=== PATIENT | male | born 1990 | race African-American/Black ===

== ENCOUNTER 2024-11-16 08:27 | Outpatient (REF) | payer OTHER, MEDICAID, SELFPAY ==
--- NOTE | ~2024-11-16 | XR_ITS ---
EXAMINATION: XR KNEE 3 VIEWS LEFT HISTORY: M25.562 - Pain in left knee COMPARISON: There are no prior studies available for comparison. FINDINGS: Standing AP views of both knees, and lateral and sunrise patellar views of the left are submitted. Osseous mineralization is normal. 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 No similar lucency is seen through the right patella. There is moderate osteoarthritis of the lateral compartment with joint space narrowing and osteophyte formation. Milder changes are noted involving the medial compartment. There are prominent vascular calcifications. There is no joint effusion. XR/XR knee LT 3V IMPRESSION: 1. 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 2. Prominent vascular calcifications, greater than expected for a patient of this age, likely secondary to diabetes. Electronically signed by: Jai Bergman MD 11/19/2024 01:15 PM EDT
--- OUTSIDE RECORDS SUMMARY | 2024-11-16 08:50 | XMS_ITS | Clinical Summary ---
Author Organization 175 [facility] Address [address] [place] [address] Phone Care Team Providers Care Plant Controls Specialist Name Role Phone Jessica Meraz Primary Care Provider [phone] Allergies No known active allergies Medications polyethylene glycol (MIRALAX) 17 gram packet Take 17 g by mouth daily. Active psyllium (METAMUCIL) 0.52 gram capsule Route: Take 1 Capsule by mouth daily. - Oral Active losartan (COZAAR) 50 mg tablet Take 1 Tablet by mouth daily. Active omeprazole (PriLOSEC) [address] capsule omeprazole (PRILOSEC) 40 MG capsule Sig - Route: Take 1 Capsule by mouth daily. - Oral Active insulin glargine (LANTUS SoloStar) 100 unit/mL (3 mL) injection pen Route: Inject 40 Units into the skin at bedtime. - Subcutaneous Active hydrALAZINE (APRESOLINE) 25 mg tablet Route: Take 1 tablet by mouth 2 times daily. - Oral 1 Active furosemide (LASIX) 80 mg tablet Route: Take 80 mg by mouth 2 times daily. - Oral Active ergocalciferol (VITAMIN D-2) 1,250 mcg (50,000 unit) capsule Take 50,000 Units by mouth once a week. Active amLODIPine (NORVASC) 10 mg tablet Take 10 mg by mouth daily. Active CARVEDILOL ORAL Take by mouth. Active insulin aspart (NovoLOG U-100 Insulin aspart) 100 unit/mL injection Inject into the skin 3 times daily (before meals). Active metoclopramide (REGLAN) 5 mg tablet Take 1 Tablet by mouth 4 times daily. Active omeprazole (PriLOSEC) [address] capsule Take 1 Capsule by mouth daily. Active cyclobenzaprine (FLEXERIL) 10 mg tabletIndicatio ns:Cervical strain, acute, initial encounter,Strai n of lumbar region, initial encounter Take 1 tablet (10 mg total) by mouth 3 (three) times a day if needed for muscle spasms for up to 7 days. 15 tablet Active Active Problems Problem Noted Date Diagnosed Date Hematuria 12/11/2020 Microscopic hematuria 12/11/2020 CKD (chronic kidney disease) 12/11/2020 Overview (07/04/2024): Never saw capital equipment specialist, no records from PCP OF 12/11/20 Encounters Date Type Department Care Team Description 09/05/2024 11:38 AM EST - 09/05/2024 1:37 PM [facility] Emergency [address] [place] [address] Jordan Pantoja MD Cervical strain, acute, initial encounter (Primary Dx); Strain of lumbar region, initial encounter Discharge Disposition: Home or Self Care 09/03/2024 6:46 AM EST - 09/03/2024 11:40 AM [facility] Emergency [address] [place] [address] Jose Gregory MD Chronic kidney disease, unspecified CKD stage (Primary Dx); Influenza A Discharge Disposition: Home or Self Care 08/20/2024 3:30 PM EST Consult Orthopedic Surgery - [place] [address] [place] [phone] Elpidio Villegas DPM Hallux rigidus of left foot (Primary Dx); Acquired hallux valgus of left foot; Hallux rigidus of right foot; Acquired hallux valgus of right foot; Acquired hammer toe of right foot; Hammer toe of left foot; Metatarsalgia of right foot; Metatarsalgia of left foot; Contracture of joint of left foot; Contracture of joint of right foot; Dermatophytosis of nail; Pain in toe of right foot; Pain in toe of left foot; Corns and callosities; Type 1 diabetes mellitus with mononeuropathy ([facility]/HCC); Ulcer of toe of right foot, limited to breakdown of skin ([facility]/HCC) from Last 3 Months Medical History Medical History Date Comments Urinary tract infection DX:Urina ry tract infection Microscopic hematuria DX:Microsc opic hematuria Diabetes mellitus ([facility]/HCC) DX:D iabetes mellitus ([facility]); COMMENT: Type 1, followed by regulated program manager at [facility] CKD (chronic kidney disease) DX: CKD (chronic kidney disease); COMMENT: Never saw capital equipment specialist, no records from PCP OF 12/11/20 Social History Tobacco Use Types Packs/Day Years Used Date Smoking Tobacco: Never Tobacco Cessation:Counseling Given: Not Answered Alcohol Use Standard Drinks/Week Comments Never 0 (1 standard drink = 0.6 oz pur e alcohol) Sex and Gender Information Value Date Recorded Sex Assigned at Male 09/03/2024 7:36 AM EST Legal Sex Male 10:16 AM EST Gender Identity Male 09/03/2024 7:36 AM EST Sexual Orientation Straight 09/05/2024 11 :59 AM EST Obstetrics History Last Filed Vital Signs Vital Sign Reading Time Taken Comments Blood Pressure 144/107 09/05/2024 10:59 AM EST Pulse 84 09/05/2024 10:59 AM EST Temperature 36.8 ??C (98.2 ??F) 09/05/2024 10:[address] Respiratory Rate 19 09/05/2024 10:59 AM EST Oxygen Saturation 100% 09/05/2024 10:59 AM EST Inhaled Oxygen Concentration - - Weight 88.5 kg (195 lb) 09/05/2024 10:59 AM EST Height 185.4 cm (6' 1 ) 09/05/2024 10:59 AM EST Body Mass Index 25.73 09/05/2024 10:59 AM EST Plan of Treatment Health Maintenance Due Date Last Done Comments Diabetes: Annual Foot Exam 2000 Diabetes: Annual Retina Eye Exam 2000 HIV Screening 07/13/2022 Medicare Annual Wellness Visit 07/13/2022 Social Influencers of Health Screening 07/13/2022 COVID-19 Vaccine (2 - Moderna risk series) 10/26/2023 09/28/2023 Influenza Vaccine (#1) 2024 , 05/09/2021, 06/09/2011 Diabetes: Blood Sugar Control Test (HGBA1C) 02/19/2025 08/22/2024, 08/22/2024, 05/17/2024 Depression Screening 05/16/2025 05/16/2024 Diabetes: Annual Urine Albumin-Creatinine Ratio (uACR) 05/17/2025 05/17/2024, 05/22/2021, 12/11/2020 Diabetes: Annual GFR (Glomerular Filtration Rate) 09/03/2025 09/03/2024, 05/17/2024 Hypertension/CHF/CAD Annual BMP Blood Test 09/03/2025 09/03/2024, 05/17/2024 Cholesterol Screening (Lipid Panel) 08/22/2029 08/22/2024, 05/17/2024, 05/17/2024, Additional history exists DTaP,Tdap,and Td Vaccines (2 - Td or Tdap) 05/03/2033 05/03/2023 Pneumococcal Vaccine: Pediatrics (0 to 5 Years) and At-Risk Patients (6 to 64 Years) Completed 05/03/2023, 02/21/2015 Hepatitis C Screening Completed 05/04/2023 Hepatitis B Vaccines Completed 09/28/2023, 05/03/20 23 HIB Vaccines Aged Out No longer eligi ble based on patient's age to complete this topic HPV Vaccines Aged Out No longer eligi ble based on patient's age to complete this topic Hepatitis A Vaccines Aged Out No long er eligible based on patient's age to complete this topic IPV Vaccines Aged Out No longer eligi ble based on patient's age to complete this topic MMR Vaccines Aged Out No longer eligi ble based on patient's age to complete this topic Meningococcal ACWY Vaccine Aged Out N o longer eligible based on patient's age to complete this topic Meningococcal B Vacine Aged Out No lo nger eligible based on patient's age to complete this topic RSV Immunization Patients Under 20 months Aged Out No longer eligible based on patient's age to complete this topic Varicella Vaccines Aged Out No longer eligible based on patient's age to complete this topic Procedures Procedure Name Priority Date/Time Associated Diagnosis Comments XR CERVICAL SPINE 4-5 VIEWS STAT 09/05/2024 12:44 PM EST XR SHOULDER 2+ VIEWS LEFT STAT 09/05/2024 12:44 PM EST ECG OUTSIDE 09/05/2024 XR CHEST 2 VIEWS STAT 09/03/2024 9:04 AM EST TROPONIN I HIGH SENSITIVITY STAT 09/03/2024 8:52 AM EST RESPIRATORY VIRUS PANEL MOLECULAR STUDY STAT 09/03/2024 7:24 AM EST POCT GLUCOSE BLOOD Routine 09/03/2024 7: 15 AM EST CBC WITH AUTO DIFFERENTIAL STAT 09/03/2024 7:12 AM EST B-TYPE NATRIURETIC PEPTIDE STAT 09/03/2024 7:12 AM EST MAGNESIUM STAT 09/03/2024 7:12 AM EST LIPASE STAT 09/03/2024 7:12 AM EST COMPREHENSIVE METABOLIC PANEL STAT 09/03/2024 7:12 AM EST CBC AND DIFFERENTIAL STAT 09/03/2024 7:12 AM EST TROPONIN I HIGH SENSITIVITY STAT 09/03/2024 7:12 AM EST ECG 12-LEAD STAT 09/03/2024 7:06 AM EST ECG ANNOTATED 09/03/2024 HM URINE ALBUMIN CREATININE RATIO Routine 12/11/2020 from Last 3 Months or Most Recently Relevant to Health Maintenance Results * XR Shoulder 2+ Views Left (09/05/2024 12:44 PM EST) Anatomical Region Laterality Modality Upper Extremities, Shoulder Left Radi ographic Imaging 09/05/2024 12:5 1 PM EST Impressions 09/05/2024 12:57 PM EST FINDINGS/IMPRESSION: No acute fracture or dislocation. ??Joint spaces are preserved. ??No focal soft tissue swelling. ??Visualized left lung is clear. -------- FINAL REPORT -------- Dictated By: TERESA OSPINA Dictated Date: 09/05/2024 12:51 ET Assigned Physician: TERESA OSPINA Reviewed and Electronically Signed By: TERESA OSPINA Signed Date: 09/05/2024 12:57 ET Workstation ID: [id number] Transcribed By: Self Edit Transcribed Date: 09/05/2024 12:51 ET Narrative 09/05/2024 12:57 PM EST XR SHOULDER 2+ VIEWS LEFT INDICATION: ??Pain, trauma TECHNIQUE: XR SHOULDER 2+ VIEWS LEFT COMPARISON: No priors available. Procedure Note Teresa Ospina MD - 09/05/2024 XR SHOULDER 2+ VIEWS LEFT INDICATION: Pain, trauma TECHNIQUE: XR SHOULDER 2+ VIEWS LEFT COMPARISON: No priors available. IMPRESSION: FINDINGS/IMPRESSION: No acute fracture or dislocation. Joint spaces arepreserved. No focal soft tissue swelling. Visualized left lung is clear. -------- FINAL REPORT -------- Dictated By: TERESA OSPINA Dictated Date: 09/05/2024 12:51 ET Assigned Physician: TERESA OSPINA Reviewed and Electronically Signed By: TERESA OSPINA Signed Date: 09/05/2024 12:57 ET Workstation ID: [id number] Transcribed By: Self Edit Transcribed Date: 09/05/2024 12:51 ET us Jordan Pantoja MD IMG XR PROCEDURES Final Res ult * XR Cervical Spine 4-5 Views (09/05/2024 12:44 PM EST) Anatomical Region Laterality Modality Spine, C-spine Radiographic Maria Isabel ging 09/05/2024 12:5 7 PM EST Impressions 09/05/2024 12:59 PM EST FINDINGS/IMPRESSION: Normal cervical lordosis. ??Levoconvex curvature. ??No fracture or prevertebral swelling. ??Disc space heights and facet joints are preserved. ??No significant foraminal stenosis seen on the left. ??The upper right cervical neural foramina superiorly are obscured due to patient positioning. ??There is possible right foraminal narrowing at C3-4 and C4-5. ??Lung apices are clear. ??Soft tissues are unremarkable. ??Open-mouth views demonstrate normal C1-2 alignment. -------- FINAL REPORT -------- Dictated By: TERESA OPSINA Dictated Date: 09/05/2024 12:57 ET Assigned Physician: TERESA OSPINA Reviewed and Electronically Signed By: TERESA OSPINA Signed Date: 09/05/2024 12:59 ET Workstation ID: [id number] Transcribed By: Self Edit Transcribed Date: 09/05/2024 12:57 ET Narrative 09/05/2024 12:59 PM EST XR CERVICAL SPINE 4-5 VIEWS INDICATION: ??Pain TECHNIQUE: XR CERVICAL SPINE 4-5 VIEWS COMPARISON: No priors available. Procedure Note Teresa Ospina MD - 09/05/2024 XR CERVICAL SPINE 4-5 VIEWS INDICATION: Pain TECHNIQUE: XR CERVICAL SPINE 4-5 VIEWS COMPARISON: No priors available. IMPRESSION: FINDINGS/IMPRESSION: Normal cervical lordosis. Levoconvex curvature. Nofracture or prevertebral swelling. Disc space heights and facet jointsare preserved. No significant foraminal stenosis seen on the left. Theupper right cervical neural foramina superiorly are obscured due topatient positioning. There is possible right foraminal narrowing at C3-4and C4-5. Lung apices are clear. Soft tissues are unremarkable.Open-mouth views demonstrate normal C1-2 alignment. -------- FINAL REPORT -------- Dictated By: TERESA OSPINA Dictated Date: 09/05/2024 12:57 ET Assigned Physician: TERESA OSPINA Reviewed and Electronically Signed By: TERESA OSPINA Signed Date: 09/05/2024 12:59 ET Workstation ID: [id number] Transcribed By: Self Edit Transcribed Date: 09/05/2024 12:57 ET Jordan Pantoja MD IMG XR PROCEDURES Final Res ult * ECG-Outside (09/05/2024) Provider Onbase ECG ORDERABLES Final Result * XR Chest 2 Views (09/03/2024 9:04 AM EST) Anatomical Region Laterality Modality Body Radiographic Maria Isabel ging 09/03/2024 9:06 AM EST Impressions 09/03/2024 9:07 AM EST Normal chest radiographs. -------- FINAL REPORT -------- Dictated By: Omer Ramirez Dictated Date: 09/03/2024 09:06 ET Assigned Physician: Omer Ramirez Reviewed and Electronically Signed By: Omer Ramirez Signed Date: 09/03/2024 09:07 ET Workstation ID: [id number] Transcribed By: Self Edit Transcribed Date: 09/03/2024 09:06 ET Narrative 09/03/2024 9:07 AM EST PROCEDURE: PA and lateral radiographs of the chest. HISTORY: chest pain. COMPARISON: 08/20/2021. FINDINGS: The heart, mediastinum, lungs, pleural spaces, and bony thorax are normal. Procedure Note Omer Ramirez MD - 09/03/2024 PROCEDURE: PA and lateral radiographs of the chest. HISTORY: chest pain. COMPARISON: 08/20/2021. FINDINGS: The heart, mediastinum, lungs, pleural spaces, and bony thorax arenormal. IMPRESSION: Normal chest radiographs. -------- FINAL REPORT -------- Dictated By: Omer Ramirez Dictated Date: 09/03/2024 09:06 ET Assigned Physician: Omer Ramirez Reviewed and Electronically Signed By: Omer Ramirez Signed Date: 09/03/2024 09:07 ET Workstation ID: [id number] Transcribed By: Self Edit Transcribed Date: 09/03/2024 09:06 ET Gene Carnes MD IMG XR PROCEDURES Final Result * Troponin I high sensitivity (09/03/2024 8:52 AM EST) Only the most recent of2 resultswithin the time period is included. [facility] High Sensitivity Troponin I 8 <=79 ng/L LAB CHEMISTRY METHOD 09/03/2024 9:40 AM [facility] Blood Venous blood specimen / Unknown Venipuncture / Unknown 09/03/2024 8:52 AM EST 09/03/2024 9:12 AM EST [facility] - 09/03/2024 9:40 AM EST High levels of biotin in samples may falsely decrease hsTroponin values. ??Use caution when interpreting hsTroponin results in patients taking biotin who exhibit renal impairment (eGFR <60) or in patients taking more than 20 mg/day of biotin. us Gene Carnes MD LAB BLOOD ORDERABLES Final Resu lt [facility] [address] [place] [address], [place] [phone] * (ABNORMAL) Respiratory virus panel molecular study (09/03/2024 7:24 AM EST) [facility] Adenovirus Detection by PCR Not Detected Not Detected LAB MICROBIOLOGY METHOD 09/03/2024 8:21 AM [facility] Influenza B PCR Not Detected Not Detected LAB MICROBIOLOGY METHOD 09/03/2024 8:21 AM [facility] Coronavirus 229E Not Detected Not Detected LAB MICROBIOLOGY METHOD 09/03/2024 8:21 AM [facility] Coronavirus HKU1 Not Detected Not Detected LAB MICROBIOLOGY METHOD 09/03/2024 8:21 AM [facility] Coronavirus OC43 Not Detected Not Detected LAB MICROBIOLOGY METHOD 09/03/2024 8:21 AM [facility] Coronavirus NL63 Not Detected Not Detected LAB MICROBIOLOGY METHOD 09/03/2024 8:21 AM [facility] Parainfluenza Virus 1 Not Detected Not Detected LAB MICROBIOLOGY METHOD 09/03/2024 8:21 AM [facility] Parainfluenza Virus 2 Not Detected Not Detected LAB MICROBIOLOGY METHOD 09/03/2024 8:21 AM [facility] Parainfluenza Virus 3 Not Detected Not Detected LAB MICROBIOLOGY METHOD 09/03/2024 8:21 AM [facility] Parainfluenza Virus 4 Not Detected Not Detected LAB MICROBIOLOGY METHOD 09/03/2024 8:21 AM [facility] RSV PCR Not Detected Not Detected LAB MICROBIOLOGY METHOD 09/03/2024 8:21 AM [facility] Human Metapneumovirus A and B Not Detected Not Detected LAB MICROBIOLOGY METHOD 09/03/2024 8:21 AM [facility] Rhinovirus/Entero virus Not Detected Not Detected LAB MICROBIOLOGY METHOD 09/03/2024 8:21 AM [facility] Bordetella pertussis Not Detected Not Detected LAB MICROBIOLOGY METHOD 09/03/2024 8:21 AM [facility] Bordetella parapertussis Not Detected Not Detected LAB MICROBIOLOGY METHOD 09/03/2024 8:21 AM [facility] Influenza A H3 Detected(A ) Not Detected LAB MICROBIOLOGY METHOD 09/03/2024 8:21 AM [facility] Mycoplasma pneumo by PCR Not Detected Not Detected LAB MICROBIOLOGY METHOD 09/03/2024 8:21 AM [facility] Chlamydia pneumoniae Not Detected Not Detected LAB MICROBIOLOGY METHOD 09/03/2024 8:21 AM [facility] SARS COV-2 Not Detected Not Detected LAB MICROBIOLOGY METHOD 09/03/2024 8:21 AM [facility] Swab Both anterior nares / Unknown Non-blood Collection / Unknown 09/03/2024 7:24 AM EST 09/03/2024 7:28 AM EST Narrative [facility] - 09/03/2024 8:21 AM EST Testing was performed using the [employer] Respiratory Pathogen PCR Assay. All results must be correlated with the clinical findings. Results should not be used as the sole basis for diagnosis. False Negative results may occur from the presence of sequence variants in the region targeted by the assay or the presence of inhibitors. Results may be affected by concurrent antiviral/antimicrobial therapy or levels of organisms that are below the limit of detection. Linnea CALDERON LAB MICROBIOLOGY - GEN ERAL ORDERABLES Final Result Performing Organization Address [facility]/ZIP Co de Phone Number [facility] [address] [place] [address], * (ABNORMAL) POCT Glucose, blood (09/03/2024 7:15 AM EST) Glucose POCT 108(H) 70 - 100 mg/dL 09/03/2024 7:15 AM [facility] Blood Capillary blood specimen / Unknown 09/03/2024 7:15 AM EST 09/03/2024 7:16 AM EST Generic Provider Poct LAB POINT OF CARE TEST DOCKED DEVICE UNSOLICITED RESULTS Final Result Performing Organization Address [facility]/ZIP Co de Phone Number [facility] [address] [place] [address], [place] [phone] * (ABNORMAL) CBC auto differential (09/03/2024 7:12 AM EST) WBC 5.1 4.8 - 10.8 K/mcL LAB HEMETOLOGY METHOD 09/03/2024 7:36 AM [facility] RBC 4.20(L) 4.50 - 5.50 M/mcL LAB HEMETOLOGY METHOD 09/03/2024 7:36 AM [facility] Hemoglobin 11.8(L) 13.5 - 17.5 g/dL LAB HEMETOLOGY METHOD 09/03/2024 7:36 AM [facility] Hematocrit 36.0(L) 42.0 - 54.0 % LAB HEMETOLOGY METHOD 09/03/2024 7:36 AM [facility] MCV 86.7 79.0 - 98.0 FL LAB HEMETOLOGY METHOD 09/03/2024 7:36 AM [facility] MCH 28.4 27.0 - 32.0 pcg LAB HEMETOLOGY METHOD 09/03/2024 7:36 AM [facility] MCHC 32.8 32.0 - 37.0 g/dL LAB HEMETOLOGY METHOD 09/03/2024 7:36 AM [facility] RDW 14.7 11.0 - 15.0 % LAB HEMETOLOGY METHOD 09/03/2024 7:36 AM [facility] Platelets 180 130 - 400 K/mcL LAB HEMETOLOGY METHOD 09/03/2024 7:36 AM [facility] MPV 11.1(H) 7.0 - 11.0 FL LAB HEMETOLOGY METHOD 09/03/2024 7:36 AM [facility] NRBC 0.0 <1.0 % LAB HEMETOLOGY METHOD 09/03/2024 7:36 AM [facility] NRBC Absolute 0.00 <0.10 K/mcL LAB HEMETOLOGY METHOD 09/03/2024 7:36 AM [facility] Neutrophils Relative 43.0 % LAB HEMETOLOGY METHOD 09/03/2024 7:36 AM [facility] Lymphocytes Relative 37.4 % LAB HEMETOLOGY METHOD 09/03/2024 7:36 AM [facility] Monocytes Relative 9.3 % LAB HEMETOLOGY METHOD 09/03/2024 7:36 AM [facility] Eosinophils Relative 9.1 % LAB HEMETOLOGY METHOD 09/03/2024 7:36 AM EST [facility] Basophils Relative 0.6 % LAB HEMETOLOGY METHOD 09/03/2024 7:36 AM EST [facility] Immature Granulocytes Relative 0.6 % LAB HEMETOLOGY METHOD 09/03/2024 7:36 AM EST [facility] Neutrophils Absolute 2.18 1.50 - 7.00 K/mcL LAB HEMETOLOGY METHOD 09/03/2024 7:36 AM EST [facility] Lymphocytes Absolute 1.89 1.00 - 5.00 K/mcL LAB HEMETOLOGY METHOD 09/03/2024 7:36 AM EST [facility] Monocytes Absolute 0.47 0.20 - 1.00 K/mcL LAB HEMETOLOGY METHOD 09/03/2024 7:36 AM EST [facility] Eosinophils Absolute 0.46 0.00 - 0.50 K/mcL LAB HEMETOLOGY METHOD 09/03/2024 7:36 AM EST [facility] Basophils Absolute 0.03 0.00 - 0.20 K/mcL LAB HEMETOLOGY METHOD 09/03/2024 7:36 AM EST [facility] Immature Granulocytes Absolute 0.03 0.00 - 0.03 K/mcL LAB HEMETOLOGY METHOD 09/03/2024 7:36 AM [facility] Blood Venous blood specimen / Unknown Venipuncture / Unknown 09/03/2024 7:12 AM EST 09/03/2024 7:28 AM EST us Gene Carnes MD LAB BLOOD ORDERABLES Final Resu lt [facility]) [facility] [address] [place] [address], * B-type natriuretic peptide (09/03/2024 7:12 AM EST) BNP 80 <=100 pcg/mL LAB CHEMISTRY METHOD 09/03/2024 8:14 AM EST [facility] Blood Venous blood specimen / Unknown Venipuncture / Unknown 09/03/2024 7:12 AM EST 09/03/2024 7:28 AM EST us Gene Carnes MD LAB BLOOD ORDERABLES Final Resu lt Performing Organization Address City/[facility]/ZIP Co de Phone Number [facility] [address] [place] [address], [place] [phone] * Magnesium (09/03/2024 7:12 AM EST) Pathologist [facility] [place] Magnesium 2.1 1.9 - 2.6 mg/dL LAB CHEMISTRY METHOD 09/03/2024 7:58 AM EST [facility] Blood Venous blood specimen / Unknown Venipuncture / Unknown 09/03/2024 7:12 AM EST 09/03/2024 7:28 AM EST us Gene Carnes MD LAB BLOOD ORDERABLES Final Resu lt Performing Organization Address [facility] de Phone Number [facility] [address] [place] [address], [place] [phone] * Lipase (09/03/2024 7:12 AM EST) Pathologist [facility] [place] Lipase 19 13 - 75 unit/L LAB CHEMISTRY METHOD 09/03/2024 7:58 AM EST [facility] Blood Venous blood specimen / Unknown Venipuncture / Unknown 09/03/2024 7:12 AM EST 09/03/2024 7:28 AM EST us Gene Carnes MD LAB BLOOD ORDERABLES Final Resu lt Performing Organization Address City/[facility]/ZIP Co de Phone Number [facility] [address] [place] [address], [place] [phone] * (ABNORMAL) Comprehensive metabolic panel (09/03/2024 7:12 AM EST) Sodium 139 133 - 145 mmol/L LAB CHEMISTRY METHOD 09/03/2024 8:23 AM [facility] Potassium 4.1 3.5 - 5.5 mmol/L LAB CHEMISTRY METHOD 09/03/2024 8:23 AM [facility] Chloride 103 96 - 110 mmol/L LAB CHEMISTRY METHOD 09/03/2024 8:23 AM [facility] CO2 31 21 - 32 mmol/L LAB CHEMISTRY METHOD 09/03/2024 8:23 AM [facility] Anion Gap 5 3 - 11 LAB CHEMISTRY METHOD 09/03/2024 8:23 AM [facility] Glucose 115(H) 70 - 100 mg/dL LAB CHEMISTRY METHOD 09/03/2024 8:23 AM [facility] BUN 33(H) 5 - 25 mg/dL LAB CHEMISTRY METHOD 09/03/2024 8:23 AM [facility] Creatinine 13.60(HH) 0.70 - 1.30 mg/dL LAB CHEMISTRY METHOD 09/03/2024 8:23 AM [facility] eGFR 4(L) >=60 mL/min/1 .73m2 LAB CHEMISTRY METHOD 09/03/2024 8:23 AM [facility] Comment:Calculation based on the??Chronic Kidney Disease Epidemiology Collaboration (CKD-EPI) equation refit??without adjustment for race. BUN/Creatinine Ratio 2.4 LAB CHEMISTRY METHOD 09/03/2024 8:23 AM [facility] Calcium 9.0 8.5 - 10.5 mg/dL LAB CHEMISTRY METHOD 09/03/2024 8:23 AM [facility] AST (SGOT) 27 10 - 42 unit/L LAB CHEMISTRY METHOD 09/03/2024 8:23 AM [facility] ALT (SGPT) 28 10 - 60 unit/L LAB CHEMISTRY METHOD 09/03/2024 8:23 AM EST [facility] Alkaline Phosphatase 123(H) 42 - 121 unit/L LAB CHEMISTRY METHOD 09/03/2024 8:23 AM EST [facility] Total Protein 7.0 6.0 - 8.0 g/dL LAB CHEMISTRY METHOD 09/03/2024 8:23 AM EST [facility] Albumin 3.7 3.2 - 5.0 g/dL LAB CHEMISTRY METHOD 09/03/2024 8:23 AM EST [facility] Total Bilirubin 0.4 0.0 - 1.4 mg/dL LAB CHEMISTRY METHOD 09/03/2024 8:23 AM EST [facility] Blood Venous blood specimen / Unknown Venipuncture / Unknown 09/03/2024 7:12 AM EST 09/03/2024 7:28 AM EST Gene Carnes MD LAB BLOOD ORDERABLES Final Resu lt [facility] [address] [place] [address], * ECG 12 lead (09/03/2024 7:06 AM EST) Ventricular Rate ECG 62 BPM GEMUSE Atrial Rate 62 BPM GEMUSE P-R Interval 196 ms GEMUSE QRS Duration 104 ms GEMUSE Q-T Interval 436 ms GEMUSE QTc 442 ms GEMUSE P Wave [place] 62 degrees GEMUSE R [place] -7 degrees GEMUSE T [place] 9 degrees GEMUSE ECG Interpretation Normal sinus rhythm Non-specific intra-ventric ular conduction block When compared with ECG of 08-OCT-2021 09:20, Nonspecific T wave abnormality, improved in Lateral leads Confirmed by Jeff SALINAS YUFENG ([id number]) on 09/03/2024 9:17:32 AM GEMUSE 09/03/2024 7:06 AM EST 09/03/2024 9:17 AM EST us Scot Jake Carnes MD ECG ORDERABLES Final Result GEMUSE * ECG-Annotated (09/03/2024) us Provider Onbase ECG ORDERABLES Final Result * HM Urine Albumin Creatinine Ratio (12/11/2020) HM Urine Albumin Creatinine Ratio Abstracted us Historical Provider HEALTH MAINTENANCE Final Result from Last 3 Months or Most Recently Relevant to Health Maintenance Insurance MEDIC[place] GENER[place] MED[place] Advance Directives Documents on File Type Date Recorded Patient School Psychological Examiner Expl anation Health Care Decision (hx) 10/12/2021 AD NAZARIO DIRECTIVE Health Care Decision (hx) 10/08/2021 AD NAZARIO DIRECTIVE Health Care Decision (hx) 10/08/2021 AD NAZARIO DIRECTIVE Health Care Decision (hx) 10/08/2021 AD NAZARIO DIRECTIVE Health Care Decision (hx) 10/08/2021 AD NAZARIO DIRECTIVE Health Care Decision (hx) 10/08/2021 AD NAZARIO DIRECTIVE Health Care Decision (hx) 10/08/2021 AD NAZARIO DIRECTIVE Care Teams Plant Controls Specialist Relationship Specialty Start Date End Date Jessica Meraz PA NPI: [id number] [place] [id number] PCP - General 05/16/24
--- OUTSIDE RECORDS SUMMARY | 2024-11-16 08:50 | XMS_ITS | Encounter Summary ---
Author Organization [facility] [address] [facility] [address] [place] [address] Phone Care Team Providers Care Oyster Shucker Name Role Phone Jordan Woo MD Primary Care Provider [phone] Encounter Details Date Type Department Care Team (Late st Contact Info) Description 12/14/2021 Office Communication [facility] [address] [place] [id number] Ammy Alejandro [address] [facility] [address] [place] [phone] Social History Tobacco Use Types Packs/Day Years Used Date Smoking Tobacco: Every Day Cigarettes Smokeless Tobacco: Never Alcohol Use Standard Drinks/Week Comments Never 0 (1 standard drink = 0.6 oz pur e alcohol) Sex and Gender Information Value Date Recorded Sex Assigned at Not on file Legal Sex Male 9:38 AM EDT Gender Identity Not on file Sexual Orientation Not on file COVID-19 Exposure Response Date Recorded In the last month, have you been in contact with someone who was confirmed or suspected to have Coronavirus / COVID-19? No / Unsure 11/25/2021 2:19 PM EDT documented as of this encounter Plan of Treatment Not on file documented as of this encounter Visit Diagnoses Not on filedocumented in this encounter Care Teams Oyster Shucker Relationship Specialty Start Date End Date Jordan Woo MD [address] [place] [address] PCP - General Internal Medicine 06/03/21 documented as of this encounter
--- OUTSIDE RECORDS SUMMARY | 2024-11-16 08:50 | XMS_ITS | Clinical Summary ---
Author Organization [facility] Address [address] [facility] [place] [address] [place] [address] Phone Care Team Providers Care Field Sales Specialist Name Role Phone Jordan Woo MD Primary Care Provider [phone] Allergies No known active allergies Medications insulin glargine (LANTUS) 100 UNIT/ML injection Inject 20 Units under the skin Active Continuous Blood Gluc Sensor (Dexcom G6 Sensor) misc USE TO CONTINUOUSLY MONITOR BLOOD GLUCOSE LEVELS 07/08/20 21 Active Continuous Blood Gluc Transmit (Dexcom G6 Transmitter) misc USE DIRECTED 07/31/20 21 Active ciprofloxacin (CIPRO) 500 MG tablet Take 500 mg by mouth 1 (one) time each day For 7 days 08/25/19 22 Active ondansetron ODT (ZOFRAN-ODT) 4 MG dispersible tablet DISSOLVE 1 TABLET ON THE TONGUE EVERY 8 HOURS NEEDED FOR NAUSEA 08/25/19 22 Active Continuous Blood Gluc Germ Drier (Dexcom G6 Germ Drier) device 09/08/19 22 Active NovoLOG FLEXPEN 100 UNIT/ML injection INJECT 2 TO 20 UNITS WITH EACH MEAL BASED ON SLDING SCALE. MAX 50 UNITS DAILY 10/07/19 22 Active oxyCODONE (ROXICODONE) 5 MG immediate release tablet TAKE 1 TABLET BY MOUTH EVERY 4 HOURS NEEDED FOR PAIN 10/08/19 22 Active NIFEdipine XL (PROCARDIA XL) 30 MG 24 hr tablet Take 1 tablet (30 mg total) by mouth 1 (one) time each day Do not crush, chew, or split. 90 tablet 3 06/30/20 22 Active B cawcwrj-D-qybx c acid 1 MG capsule Take 1 capsule by mouth 1 (one) time each day 30 each 04/13/20 23 Active metoclopramide (Reglan) 5 MG tablet Take 1 tablet (5 mg total) by mouth in the morning and 1 tablet (5 mg total) at noon and 1 tablet (5 mg total) in the evening. Take with meals. 180 tablet 3 05/11/20 23 Active isosorbide mononitrate (IMDUR) 30 MG 24 hr tablet Take 1 tablet (30 mg total) by mouth 1 (one) time each day 90 tablet 3 09/30/19 24 Active losartan (Cozaar) 50 MG tablet Take 1 tablet (50 mg total) by mouth 1 (one) time each day 90 tablet 3 09/30/19 24 Active amLODIPine (NORVASC) 5 MG tablet Take 1 tablet (5 mg total) by mouth 1 (one) time each day 90 tablet 3 10/05/19 25 026 Active carvedilol (COREG) 25 MG tablet TAKE 1 TABLET BY MOUTH EVERY MORNING AND EVERY EVENING WITH MEALS 60 tablet 11 10/23/19 25 Active carvedilol (COREG) 25 MG tablet Take 1 tablet (25 mg total) by mouth in the morning and 1 tablet (25 mg total) in the evening. Take with meals. 60 tablet 11 09/30/19 24 025 Discontinued Active Problems Problem Noted Date Diagnosed Date Hypertensive urgency 2021 Chronic kidney disease, stage 4 (severe) 021 Persistent proteinuria 06/22/2021 Hypertension 04/03/2021 Hypokalemia 04/03/2021 Acute nontraumatic kidney injury 04/03/2021 Resolved Problems Problem Noted Date Diagnosed Date Resolved Date SARS-CoV-2 detected 08/21/2021 10/16/19 22 Nicotine dependence 2021 10/16/19 22 Generalized edema 07/13/2021 10/15/2021 Tobacco user 05/09/2021 10/15/2021 Type 1 diabetes mellitus 05/09/202110/2021 Diabetes mellitus, transient 1 04/03/2021 10/15/2021 Hypoglycemia 04/03/2021 10/15/2021 Chronic kidney disease stage 1 04/03/2021 07/13/2021 Hyperlipidemia 04/03/2021 10/15/2021 COVID-19 04/03/2021 10/15/2021 Encounters Date Type Department Care Team Description 11/14/2024 Treatment [facility] [address] [address] Jordan Elaine MD End stage renal disease; Dependence on renal dialysis 11/05/2024 Treatment [facility] [address] [address] Jordan Elaine MD End stage renal disease; Dependence on renal dialysis 10/29/2024 Treatment [facility] [address] [address] Jordan Elaine MD End stage renal disease; Dependence on renal dialysis 10/22/2024 Treatment [facility] [address] [address] Jordan Elaine MD End stage renal disease; Dependence on renal dialysis 10/22/2024 Refill [facility] [address] [place] [address] Jordan Elaine MD 10/21/2024 Refill [facility] [address] [place] [address] Jordan Elaine MD 10/15/2024 Treatment [facility] [address] [address] Jordan Elaine MD End stage renal disease; Dependence on renal dialysis 10/12/2024 Treatment [facility] [address] [address] Jordan Elaine MD End stage renal disease; Dependence on renal dialysis 10/05/2024 Treatment [facility] [address] [address] Jordan Elaine MD 09/24/2024 Treatment [facility] [address] [place] [address] Jordan Elaine MD 09/17/2024 Treatment [facility] [address] [address] Jordan Elaine MD 09/05/2024 Treatment [facility] [address] [address] Jordan Elaine MD 09/03/2024 Treatment [facility] [address] [address] Viet Harvey MD 08/27/2024 Treatment [facility] [address] [address] Jordan Elaine MD 08/24/2024 Treatment [facility] [address] [place] [address] Jordan Elaine MD from Last 3 Months Immunizations Name Administration Dates Next Due Influenza, Quadrivalent, Preservative Free 05/09 Family History Medical History Relation Comments Hypertension Father Kidney disease Maternal Grandmother Kidney disease Mother's Brother 4 iuncles with KD and the oldest uncle Diabetes Paternal Grandmother Relation Status Comments Father Maternal Grandmother Mother's Brother Paternal Grandmother Social History Tobacco Use Types Packs/Day Years Used Date Smoking Tobacco: Every Day Cigarettes Smokeless Tobacco: Never Tobacco Cessation:Ready to Q uit: Yes Alcohol Use Standard Drinks/Week Comments Never 0 (1 standard drink = 0.6 oz pur e alcohol) Sex and Gender Information Value Date Recorded Sex Assigned at Not on file Legal Sex Male 9:38 AM EDT Gender Identity Not on file Sexual Orientation Not on file Last Filed Vital Signs Vital Sign Reading Time Taken Comments Blood Pressure 190/110 10/15/2021 3:15 PM EST Pulse 76 10/15/2021 3:15 PM EST Temperature - - Respiratory Rate 99 07/13/2021 1:20 PM EST Oxygen Saturation 98% 08/27/2021 3:48 PM EST Inhaled Oxygen Concentration - - Weight 112 kg (246 lb) 08/27/2021 3:48 PM EST Height 185.9 cm (6' 1.2 ) 08/27/2021 3:48 PM EST Body Mass Index 32.28 08/27/2021 3:48 PM EST Plan of Treatment Health Maintenance Due Date Last Done Comments Pneumococcal Vaccine: Pediat rics (0 to 5 Years) and At-Risk Patients (6 to 64 Years) (1 of 2 - PCV) 1996 Hepatitis B Vaccine (1 of 5 - Risk Dialysis 4-dose series) 2010 Diabetes: Ophthalmology Exam 08/27/2024 Diabetes: Pedal Pulse Checked 08/27/2024 Diabetes: Sensory Foot Exam 08/27/2024 Diabetes: Visual Foot Exam 08/27/2024 Diabetes: Hemoglobin A1C 11/20/2024 025, 05/17/2024, 05/22/2021 Influenza Vaccine (Season Ended) 2025 09/28/19 24, 05/09/2021 Procedures Procedure Name Priority Date/Time Associated Diagnosis Comments HEMOGLOBIN Routine 11/09/2024 3:00 AM EDT HEMOGLOBIN AND HEMATOCRIT, BLOOD Routine 10/31/2024 3:00 AM EDT TRANSFERRIN SATURATION Routine 3:00 AM EST PROTEIN, TOTAL, SERUM Routine 10/17/2024 3:00 AM EST ELECTROLYTE PANEL Routine 10/17/2024 3:0 0 AM EST LIH (HC) Routine 10/17/2024 3:00 AM EST MAGNESIUM Routine 10/17/2024 3:00 AM EST GLUCOSE, RANDOM Routine 10/17/2024 3:00 AM EST LACTATE DEHYDROGENASE Routine 10/17/2024 3:00 AM EST CREATININE, SERUM Routine 10/17/2024 3:0 0 AM EST BILIRUBIN, TOTAL Routine 10/17/2024 3:00 AM EST AST Routine 10/17/2024 3:00 AM EST ALT Routine 10/17/2024 3:00 AM EST ALKALINE PHOSPHATASE Routine 10/17/2024 3:00 AM EST CALCIUM PHOSPHORUS PRODUCT, ADJUSTED (HC) Routine 10/17/2024 3:00 AM EST FERRITIN Routine 10/17/2024 3:00 AM EST PTH, INTACT Routine 10/17/2024 3:00 AM EST KT/V NATURAL LOG, URR (HC) Routine 10/17/2024 3:00 AM EST CBC AND DIFFERENTIAL Routine 10/17/2024 3:00 AM EST HEMOGLOBIN Routine 10/10/2024 3:00 AM EST HEMOGLOBIN AND HEMATOCRIT, BLOOD Routine 10/03/2024 3:00 AM EST TRANSFERRIN SATURATION Routine 3:00 AM EST ELECTROLYTE PANEL Routine 09/19/2024 3:0 0 AM EST LIH (HC) Routine 09/19/2024 3:00 AM EST PROTEIN, TOTAL, SERUM Routine 09/19/2024 3:00 AM EST BILIRUBIN, TOTAL Routine 09/19/2024 3:00 AM EST ALT Routine 09/19/2024 3:00 AM EST CREATININE, SERUM Routine 09/19/2024 3:0 0 AM EST MAGNESIUM Routine 09/19/2024 3:00 AM EST AST Routine 09/19/2024 3:00 AM EST ALKALINE PHOSPHATASE Routine 09/19/2024 3:00 AM EST GLUCOSE, RANDOM Routine 09/19/2024 3:00 AM EST LACTATE DEHYDROGENASE Routine 09/19/2024 3:00 AM EST CALCIUM PHOSPHORUS PRODUCT, ADJUSTED (HC) Routine 09/19/2024 3:00 AM EST FERRITIN Routine 09/19/2024 3:00 AM EST PTH, INTACT Routine 09/19/2024 3:00 AM EST KT/V NATURAL LOG, URR (HC) Routine 09/19/2024 3:00 AM EST CBC AND DIFFERENTIAL Routine 09/19/2024 3:00 AM EST HEMOGLOBIN Routine 09/12/2024 3:00 AM EST HEMOGLOBIN AND HEMATOCRIT, BLOOD Routine 09/05/2024 3:00 AM EST VITAMIN D 25 HYDROXY Routine 08/31/2024 3:00 AM EST HEMOGLOBIN Routine 08/29/2024 3:00 AM EST ALUMINUM LEVEL Routine 08/22/2024 3:00 AM EST HEMOGLOBIN A1C Routine 08/22/2024 3:00 AM EST HEPATITIS C ABS W/REFLEX RNA DETECTR Routine 08/22/2024 3:00 AM EST CONFIRMATION TEST HCV Routine 08/22/2024 3:00 AM EST FERRITIN Routine 08/22/2024 3:00 AM EST HEPATITIS B SURFACE ANTIBODY QUANT Routine 08/22/2024 3:00 AM EST PTH, INTACT Routine 08/22/2024 3:00 AM EST TRANSFERRIN SATURATION Routine 3:00 AM EST URIC ACID Routine 08/22/2024 3:00 AM EST PROTEIN, TOTAL, SERUM Routine 08/22/2024 3:00 AM EST MAGNESIUM Routine 08/22/2024 3:00 AM EST LIPID PANEL Routine 08/22/2024 3:00 AM EST ELECTROLYTE PANEL Routine 08/22/2024 3:0 0 AM EST LACTATE DEHYDROGENASE Routine 08/22/2024 3:00 AM EST LIH (HC) Routine 08/22/2024 3:00 AM EST GLUCOSE, RANDOM Routine 08/22/2024 3:00 AM EST CREATININE, SERUM Routine 08/22/2024 3:0 0 AM EST ALT Routine 08/22/2024 3:00 AM EST AST Routine 08/22/2024 3:00 AM EST BILIRUBIN, TOTAL Routine 08/22/2024 3:00 AM EST ALKALINE PHOSPHATASE Routine 08/22/2024 3:00 AM EST CALCIUM PHOSPHORUS PRODUCT, ADJUSTED (HC) Routine 08/22/2024 3:00 AM EST CBC AND DIFFERENTIAL Routine 08/22/2024 3:00 AM EST KT/V NATURAL LOG, URR (HC) Routine 08/22/2024 3:00 AM EST from Last 3 Months Results * (ABNORMAL) Hemoglobin (11/09/2024 3:00 AM EDT) Only the most recent of4 resultswithin the time period is included. Hgb 9.7(L) 13.7 - 17.5 g/dL [facility] Hemoglobin x 3 29.1(L) 41.1 - 52.5 g/dL [facility] 11/09/2024 3:00 AM EDT 11/10/2024 1:00 PM EDT Jordan Elaine MD LAB BLOOD ORDERABLES Final Re sult Performing Organization Address [facility] Co de Phone Number [facility] [address] [place] [address] * (ABNORMAL) Hemoglobin and hematocrit (10/31/2024 3:00 AM EDT) Only the most recent of3 resultswithin the time period is included. Hgb 9.6(L) 13.7 - 17.5 g/dL [facility] Hematocrit 29.3(L) 40.1 - 51.0 % [facility] Hemoglobin x 3 28.8(L) 41.1 - 52.5 g/dL [facility] 10/31/2024 3:00 AM EDT 11/01/2024 1:22 PM EDT Jordan Elaine MD LAB BLOOD ORDERABLES Final Re sult Performing Organization Address City/[facility]/ZIP Co de Phone Number [facility] [address] [place] [address] * LIH (10/17/2024 3:00 AM EST) Only the most recent of3 resultswithin the time period is included. Lipemia Normal Normal [facility] Icterus Normal Normal [facility] Hemolysis Normal Normal [facility] 10/17/2024 3:00 AM EST 10/18/2024 3:48 PM EST Jordan Elaine MD LAB [id number] SOLICITED RESULTS Final Result Performing Organization Address [facility] de Phone Number [facility] [address] [place] [address] * (ABNORMAL) Kt/V Natural Log, URR (10/17/2024 3:00 AM EST) Only the most recent of3 resultswithin the time period is included. Treatment Time 246 min [facility] Pre-Weight, lb 94.7 kg [facility] Post-Weight, lb 93.4 kg [facility] Ultrafiltration Rate 3 <=13 mL/kg/hr [facility] Comment: Recommend achieving Ultrafiltration Rate (UFR) <=10 mL/kg/hr References: Kai AMEZQUITA et al. Kidney Int. 2010; 79(2):250-257 BUN 38(H) 7 - 25 mg/dL [facility] BUN Post Dialysis 13 7 - 25 mg/dL [facility] UREA REDUCTION RATIO (%) 66 >=65 % [facility] Kt/V Natural Log 1.21 >=1.2 [facility] 10/17/2024 3:00 AM EST 10/18/2024 3:48 PM EST Jordan Elaine MD LAB [id number] SOLICITED RESULTS Final Result Performing Organization Address [facility] Co de Phone Number [facility] [address] [place] [address] * (ABNORMAL) Calcium Phosphorus Product, Adjusted (10/17/2024 3:00 AM EST) Only the most recent of3 resultswithin the time period is included. Albumin 4.3 3.6 - 5.4 g/dL [facility] Calcium 8.9 8.6 - 10.3 mg/dL [facility] Phosphorus, Serum 5.2(H) 2.5 - 5.0 mg/dL [facility] Ca*PO4 46.3 <55.0 mg2/dL2 [facility] Calcium, Adjusted Total 8.9 8.6 - 10.3 mg/dL [facility] CA*PO4 CORRCTD 46.3 <55.0 mg2/dL2 [facility] 10/17/2024 3:00 AM EST 10/18/2024 3:48 PM EST Jordan Elaine MD LAB [id number] SOLICITED RESULTS Final Result Performing Organization Address City/[facility] de Phone Number [facility] [address] [place] [address] * (ABNORMAL) TSAT (10/17/2024 3:00 AM EST) Only the most recent of3 resultswithin the time period is included. [facility] Iron 82 65 - 175 ug/dL [facility] Transferrin 128(L) 215 - 365 mg/dL [facility] TIBC 179(L) 211 - 406 ug/dL [facility] Iron Saturation (TSat) 46 22 - 52 % [facility] 10/17/2024 3:00 AM EST 10/18/2024 3:48 PM EST Jordan Elaine MD LAB BLOOD ORDERABLES Final Re sult Performing Organization Address [facility] de Phone Number [facility] [address] [place] [address] * (ABNORMAL) CBC and Differential (10/17/2024 3:00 AM EST) Only the most recent of3 resultswithin the time period is included. [facility] DIFFERENTIAL MANUAL, 2 Not Indicated [facility] White Blood Cells 6.2 4.2 - 9.1 K/uL [facility] RBC 3.34(L) 4.63 - 6.08 M/uL [facility] Hgb 9.7(L) 13.7 - 17.5 g/dL [facility] Hemoglobin x 3 29.1(L) 41.1 - 52.5 g/dL [facility] Hematocrit 29.6(L) 40.1 - 51.0 % [facility] MCV 88.6 79.0 - 92.2 fL [facility] MCH 29.0 25.7 - 32.2 pg [facility] MCHC 32.8 32.3 - 36.5 g/dL [facility] Platelets 276 163 - 337 K/uL [facility] RDW 16.5(H) 11.6 - 14.4 % [facility] Neutrophils Relative 59.5 34.0 - 67.9 % [facility] Lymphocytes Relative 22.3 21.8 - 53.1 % [facility] Monocytes 9.3 5.3 - 12.2 % [facility] Eosinophils Relative 6.6 0.8 - 7.0 % [facility] Basophils Relative 1.0 0.2 - 1.2 % [facility] Immature Granulocytes 1.3(H) 0.0 - 1.0 % [facility] 10/17/2024 3:00 AM EST 10/18/2024 3:48 PM EST Jordan Elaine MD LAB BLOOD ORDERABLES Final Re sult Performing Organization Address [facility] de Phone Number [facility] [address] [place] [address] * ALT (10/17/2024 3:00 AM EST) Only the most recent of3 resultswithin the time period is included. ALT (SGPT) 14 10 - 49 U/L [facility] 10/17/2024 3:00 AM EST 10/18/2024 3:48 PM EST Jordan Elaine MD LAB BLOOD ORDERABLES Final Re sult Performing Organization Address [facility] de Phone Number [facility] [address] [place] [address] * AST (10/17/2024 3:00 AM EST) Only the most recent of3 resultswithin the time period is included. AST (SGOT) 20 <34 U/L [facility] 10/17/2024 3:00 AM EST 10/18/2024 3:48 PM EST Jordan Elaine MD LAB BLOOD ORDERABLES Final Re sult Performing Organization Address [facility] de Phone Number [facility] [address] [place] [address] * Protein, total (10/17/2024 3:00 AM EST) Only the most recent of3 resultswithin the time period is included. Total Protein 7.0 6.4 - 8.9 g/dL [facility] 10/17/2024 3:00 AM EST 10/18/2024 3:48 PM EST Jordan Elaine MD LAB BLOOD ORDERABLES Final Re sult Performing Organization Address [facility] de Phone Number [facility] [address] [place] [address] * (ABNORMAL) Alkaline phosphatase (10/17/2024 3:00 AM EST) Only the most recent of3 resultswithin the time period is included. Alkaline Phosphatase 133(H) 46 - 116 U/L [facility] 10/17/2024 3:00 AM EST 10/18/2024 3:48 PM EST Jordan Elaine MD LAB BLOOD ORDERABLES Final Re sult Performing Organization Address [facility] de Phone Number [facility] [address] [place] [address] * (ABNORMAL) PTH, Intact (10/17/2024 3:00 AM EST) Only the most recent of3 resultswithin the time period is included. PTH, Intact 980(H) 160 - 721 pg/mL [facility] Comment: Suggested (KDIGO) ESRD maintenance range is two to nine times the upper normal limit (80.1 pg/mL) for the laboratory. 10/17/2024 3:00 AM EST 10/18/2024 3:48 PM EST us Jordan Elaine MD LAB BLOOD ORDERABLES Final Re sult Performing Organization Address [facility] de Phone Number [facility] [address] [place] [address] * (ABNORMAL) Magnesium (10/17/2024 3:00 AM EST) Only the most recent of3 resultswithin the time period is included. Magnesium 1.8(L) 1.9 - 2.7 mg/dL [facility] 10/17/2024 3:00 AM EST 10/18/2024 3:48 PM EST Jordan Elaine MD LAB BLOOD ORDERABLES Final Re sult Performing Organization Address [facility] Co de Phone Number [facility] [address] [place] [address] * (ABNORMAL) Lactate dehydrogenase (10/17/2024 3:00 AM EST) Only the most recent of3 resultswithin the time period is included. LDH 265(H) 120 - 246 U/L [facility] 10/17/2024 3:00 AM EST 10/18/2024 3:48 PM EST Jordan Elaine MD LAB BLOOD ORDERABLES Final Re sult Performing Organization Address [facility] de Phone Number [facility] [address] [place] [address] * (ABNORMAL) Glucose, random (10/17/2024 3:00 AM EST) Only the most recent of3 resultswithin the time period is included. Glucose 474(H) 74 - 109 mg/dL [facility] 10/17/2024 3:00 AM EST 10/18/2024 3:48 PM EST Jordan Elaine MD LAB BLOOD ORDERABLES Final Re sult Performing Organization Address [facility] de Phone Number [facility] [address] [place] [address] * (ABNORMAL) Ferritin (10/17/2024 3:00 AM EST) Only the most recent of3 resultswithin the time period is included. Ferritin 672(H) 22 - 322 ng/mL [facility] 10/17/2024 3:00 AM EST 10/18/2024 3:48 PM EST Jordan Elaine MD LAB BLOOD ORDERABLES Final Re sult Performing Organization Address [facility] de Phone Number [facility] [address] [place] [address] * (ABNORMAL) Creatinine, serum (10/17/2024 3:00 AM EST) Only the most recent of3 resultswithin the time period is included. Creatinine 13.43(H) 0.70 - 1.30 mg/dL [facility] 10/17/2024 3:00 AM EST 10/18/2024 3:48 PM EST Jordan Elaine MD LAB BLOOD ORDERABLES Final Re sult Performing Organization Address [facility] de Phone Number [facility] [address] [place] [address] * (ABNORMAL) Bilirubin, total (10/17/2024 3:00 AM EST) Only the most recent of3 resultswithin the time period is included. Total Bilirubin 0.2(L) 0.3 - 1.2 mg/dL [facility] 10/17/2024 3:00 AM EST 10/18/2024 3:48 PM EST Jordan Elaine MD LAB BLOOD ORDERABLES Final Re sult Performing Organization Address [facility] de Phone Number [facility] [address] [place] [address] * (ABNORMAL) Electrolyte panel (10/17/2024 3:00 AM EST) Only the most recent of3 resultswithin the time period is included. Sodium 134(L) 136 - 145 mEq/L [facility] Potassium 4.2 3.4 - 5.0 mEq/L [facility] Chloride 98 98 - 107 mEq/L [facility] Bicarbonate (CO2) 23 21 - 31 mEq/L [facility] Anion Gap 13 3 - 14 mEq/L [facility] 10/17/2024 3:00 AM EST 10/18/2024 3:48 PM EST Jordan Elaine MD LAB BLOOD ORDERABLES Final Re sult Performing Organization Address [facility] de Phone Number [facility] [address] [place] [address] * Vitamin D 25 Hydroxy (08/31/2024 3:00 AM EST) Pathologist [facility] Vitamin D, 25-Hydroxy 9 30 - 100 ng/mL [facility] Comment: Status ? Adult ?? Pediatric Deficient: ? <20 ? <15 Insufficient: ??20-29 ?? 15-19 Sufficient: ?30-100 ??20-100 08/31/2024 3:00 AM EST 09/01/2024 1:20 PM EST Jordan Elaine MD LAB BLOOD ORDERABLES Final Re sult Performing Organization Address [facility] de Phone Number [facility] [address] [place] [address] * Confirmation Test HCV (08/22/2024 3:00 AM EST) Pathologist [facility] Hep C Ab Confirmation Not needed [facility] 08/22/2024 3:00 AM EST 08/23/2024 3:48 PM EST Jordan Elaine MD LAB BLOOD ORDERABLES Final Re sult Performing Organization Address City/[facility] Co de Phone Number [facility] [address] [place] [address] * HEPATITIS C ABS W/REFLEX RNA DETECTR (08/22/2024 3:00 AM EST) Pathologist [facility] Hep C Virus Ab Non-Reacti ve Non-Reacti ve [facility] 08/22/2024 3:00 AM EST 08/23/2024 4:14 PM EST Jordan Elaine MD LAB [id number] SOLICITED RESULTS Final Result Performing Organization Address [facility] de Phone Number [facility] [address] [place] [address] * Aluminum level (08/22/2024 3:00 AM EST) Aluminum 3 1 - 20 ug/L [facility] 08/22/2024 3:00 AM EST 08/23/2024 4:06 PM EST Jordan Elaine MD LAB BLOOD ORDERABLES Final Re sult Performing Organization Address [facility] de Phone Number [facility] [address] [place] [address] * Hepatitis B Surface Antibody (08/22/2024 3:00 AM EST) Hep B Surface Antibody >1,000 mIU/mL [facility] Comment: Interpretation: <10: No Immunity >=10: Probable Immunity 08/22/2024 3:00 AM EST 08/23/2024 4:14 PM EST Jordan Elaine MD LAB BLOOD ORDERABLES Final Re sult Performing Organization Address [facility] de Phone Number [facility] [address] [place] [address] * Uric Acid (08/22/2024 3:00 AM EST) Uric Acid 5.2 4.4 - 7.6 mg/dL [facility] 08/22/2024 3:00 AM EST 08/23/2024 4:14 PM EST Jordan Elaine MD LAB BLOOD ORDERABLES Final Re sult Performing Organization Address [facility] de Phone Number [facility] [address] [place] [address] * (ABNORMAL) Hemoglobin A1c (08/22/2024 3:00 AM EST) Hemoglobin A1C 9.6(H) <5.7 % [facility] Comment: Methodology: Enzymatic HbA1c (NGSP %) ?Suggested Diagnosis >6.4% ? Diabetic 5.7-6.4% ?Pre-Diabetic <5.7% ? Non-Diabetic Diabetic Glucose Control Evaluation: Therapeutic action suggested at >8.0% ADA recommends a glycemic goal of <7.0% 08/22/2024 3:00 AM EST 08/23/2024 3:48 PM EST us Jordan Elaine MD LAB BLOOD ORDERABLES Final Re abbeyt [facility] [address] [place] [address] * (ABNORMAL) Lipid panel (08/22/2024 3:00 AM EST) Cholesterol 137 <200 mg/dL [facility] Comment: Optimal: ?<200 Borderline: ? 200-239 Higher Risk: ?>239 Triglycerides 96 <150 mg/dL [facility] Comment: Optimal: ?<150 Borderline High: ??150-199 High: ? 200-499 Very High: ?>499 HDL 36(A) >59 mg/dL [facility] Comment: Desirable: ?>59 Higher Risk: ?<40 LDL-Calc 82 <100 mg/dL [facility] Comment: Optimal: ?<100 Above Optimal: ?100-129 Borderline High: ??130-159 High: ? 160-189 Very High: ?>189 VLDL Cholesterol Emmanuel 19 <30 mg/dL [facility] Comment: Optimal: ?<30 Borderline High: ??30-39 High: ? 40-99 Very High: ?>99 Chol/HDL Ratio 3.8(A) <3.3 [facility] Comment: Optimal: ?<3.3 Higher Risk: ?>6.2 08/22/2024 3:00 AM EST 08/23/2024 4:14 PM EST us Jordan Elaine MD LAB BLOOD ORDERABLES Final Re sult [facility] [address] [place] [address] from Last 3 Months Insurance [place] Care Teams Field Sales Specialist Relationship Specialty Start Date End Date Jordan Woo MD [address] [place] [address] PCP - General Internal Medicine 06/03/21
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
--- OUTSIDE RECORDS SUMMARY | 2024-11-16 08:50 | XMS_ITS | Encounter Summary ---
Author Organization [facility] Address [address] [address] Phone Care Team Providers Care Dynamo Repairer Name Role Phone Jun Woo MD Primary Care Provider [phone] Encounter Details Date Type Department Care Team (Late st Contact Info) Description 11/14/2024 Treatment [facility]. [address] [phone] Jun Lynch MD [address] [address] End stage renal disease; Dependence [...] Dialysis Note - Jun Lynch MD - 11/14/2024 12:00 AM EDT Patient: Manjeet Olguin : 1990 Note Type: Dialysis Rounds-Comp Service Date: 11/14/2024 This patient was personally seen for a complete visit as part of routine monthly dialysis care for end stage renal disease. Attending Record Filing Clerk: JUN LYNCH Dialysis Location: [facility] Schedule: Shift: 1 OVERVIEW Patient is stable. ADEQUACY ASSESSMENT Kt/V, Natural Log 1.21 (10/17/24) 1.33 (09/19/24) 1.29 (08/22/24) UREA REDUCTION RATIO (%) 66 (10/17/24) 68 (09/19/24) 68 (08/22/24) BUN 38 (10/17/24) 57 (09/19/24) 47 (08/22/24) BUN Post Dialysis 13 (10/17/24) 18 (09/19/24) 15 (08/22/24) Creatinine 13.43 (10/17/24) 13.16 (09/19/24) 13.29 (08/22/24) Bicarbonate (CO2) 23 (10/17/24) 23 (09/19/24) 25 (08/22/24) Sodium 134 (10/17/24) 132 (09/19/24) 134 (08/22/24) ANEMIA ASSESSMENT Hgb 9.7 (11/09/24) 9.6 (10/31/24) 9.7 (10/17/24) Iron Saturation (TSat) 46 (10/17/24) 74 (09/19/24) [...] doing ok 10/29/24 stable 11/05/24 doing ok 11/14/24 stable 07/30/24 stable 08/14/24 doing ok 04/18/24 stablle 04/30/24 stable 05/09/24 no new issues 05/21/24 stable 05/28 stable 06/04/24 no new issues 06/18/24 stable 06/29/24 no new issues 07/04/24 stable 07/10/24 doing ok 06/10/23 stable 07/23/24 no new issues 08/27/24 stable 09/05/24 stable Signed by: JNU LYNCH MD on 11/14/2024 at 09:36:36 PM Transcribed by: JUN LYNCH MD on 11/14/2024 at 09:36:36 PM documented in this encounter Plan of Treatment Not on file documented as of this encounter Visit Diagnoses Diagnosis End stage renal disease Dependence on renal dialysis documented in this encounter Care Teams Dynamo Repairer Relationship Specialty [place] [address] [place] [phone] PCP - General Internal Medicine 06/03/21 documented as of this encounter
--- OUTSIDE RECORDS SUMMARY | 2024-11-16 08:50 | XMS_ITS | Clinical Summary ---
Author Organization [facility] Address [address] [place] [address] Care Team Providers Care Radio Station Manager Name Role Phone Jessica Meraz PA-C Primary Care Provider [phone] Source Comments PLEASE NOTE, if this patient is a minor, it may be UNLAWFUL to discuss sensitive information that is contained in these records (such as FAMILY PLANNING, MENTAL HEALTH or SUBSTANCE ABUSE) with the minor patient's parent or other person without the patient's specific authorization.[facility] Allergies No known active allergies Medications NOVOLOG FLEXPEN U-100 INSULIN 100 unit/mL (3 mL) 04/27/20 21 Active blood pressure monitorIndicatio ns:Essential hypertension Lifetime need 1 Kit 06/22/20 21 Active compress.stockin g,knee,reg,lrgIn dications:Periph eral edema Lifetime need 1 Each 06/22/20 21 Active furosemide (LASIX) 80 mg tabletIndication s:Essential hypertension,Sta ge 4 chronic kidney disease (HCC-CMS) Take 1 Tablet by mouth once daily 90 Tablet 06/22/20 21 Active amLODIPine (NORVASC) 10 mg tablet TAKE 1 TABLET BY MOUTH EVERY DAY 30 Tablet 2 07/26/20 21 Active cholecalciferol, vitamin D3, (VITAMIN D3) 1,250 mcg (50,000 unit) capsule TAKE ONE CAPSULE BY MOUTH ONCE PER WEEK 07/15/20 21 Active isosorbide mononitrate (IMDUR) 30 mg 24 hr tablet Take 30 mg by mouth 02/28/20 21 Active carvediloL (COREG) 25 mg tablet 06/30/20 22 Active losartan (COZAAR) 50 mg tablet 0 Refills, Maintenance, 05/31/23 15:21:00 EDT, Partial fill upon patient request if the prescription is for a schedule II opioid drug. 05/31/20 23 Active metoclopramide (REGLAN) 5 mg tablet Take 5 mg by mouth 05/11/20 23 Active pantoprazole (PROTONIX) 40 mg EC tablet Take 40 mg by mouth 06/01/20 23 Active BD ALCOHOL SWABS 06/27/20 23 Active triamcinolone (KENALOG) 0.1 % ointmentIndicati ons:Rash Apply topically 2 (two) times daily To affected areas for 2 weeks. 15 g 07/13/20 23 Active psyllium husk (METAMUCIL) 0.52 gram capsuleIndicatio ns:Difficulty passing stool Take 1 Capsule by mouth 2 (two) times daily 180 Capsule 11/08/19 24 Active clotrimazole (LOTRIMIN) 1 % creamIndications :Tinea cruris Apply topically 2 (two) times daily 15 g 02/06/20 24 Active TOUJEO MAX U-300 SOLOSTAR 300 unit/mL (3 mL) 30 Units once daily. Authorized by: ARTURO SZYMANSKI 05/16/20 24 Active HUMALOG KWIKPEN INSULIN 100 unit/mL injection pen Sliding scale via endo. Authorized by: CHRISTIE BAGLEY 05/16/20 24 Active flash glucose sensor (FREESTYLE MOMO 2 SENSOR) kit by miscellaneous route Use to monitor BG for Endo Active KETOSTIX strip USE DIRECTED TO CHECK KETONES IN URINE Authorized by: ARTURO SZYMANSKI 03/13/20 24 Active atorvastatin (LIPITOR) 80 mg tabletIndication s:Hypercholester olemia TAKE 1 TABLET BY MOUTH DAILY 90 Tablet 1 08/22/19 25 Active polyethylene glycol, PEG, 3350 (GLYCOLAX) 17 gram/dose powderIndication s:Difficulty passing stool DISSOLVE 17 GRAMS IN LIQUID AND DRINK BY MOUTH TWICE DAILY NEEDED FOR CONSTIPATION 510 g 09/18/19 25 Active sevelamer HCL (RENAGEL) 800 mg tablet Take 800 mg by mouth 2 (two) times daily with meals 09/26/19 24 Active Active Problems Problem Noted Date Diagnosed Date Class 1 obesity due to exces s calories with serious comorbidity and body mass index (BMI) of 30.0 to 30.9 in adult 05/30/2024 Chronic kidney disease with dialysis modality undecided, stage 5 ([facility]) 09/28/2023 Class 1 obesity 08/03/2022 SARS-CoV-2 positive 08/21/2021 Hypertensive urgency 2021 Nicotine dependence 2021 Generalized edema 07/13/2021 Persistent proteinuria 06/22/2021 Hypercholesterolemia 05/26/2021 Type 1 diabetes mellitus wit h stage 4 chronic kidney disease ([facility]) 05/09/2021 Stage 4 chronic kidney disease ([facility]) 021 Essential hypertension 05/09/2021 Tobacco abuse 05/09/2021 Acute kidney injury ([facility] V[facility]) 04/03/2021 Encounters Date Type Department Care Team Description 09/21/2024 11:20 AM EST Office Visit [address] [phone] Jessica Meraz PA-C Visit for eye and vision exam (Primary Dx) 09/04/2024 Interim Notes [address] [phone] Dago Adair, PharmD from Last 3 Months Immunizations Immunization Administration Dates Next Due Flu, Preservative Free 09/28/2023,05/09/2021 Hep B,adult,adjuvanted (HEPLISAV) 09/28/2023, INFLUENZA, SEASONAL, INJECTABLE 06/09/2011 Moderna COVID-19 (Spikevax), Mrna, Lnp-s, Pf, 50 Mcg/0.5 Ml, 12yr+ 09/28/2023 PNEUMOCOCCAL CONJUGATE PCV 20 (Prevnar) 05/03/20 23 TDAP 05/03/2023 Social History Tobacco Use Types Packs/Day Years Used Date Smoking Tobacco: Former Cigarettes 0.5 15 Passive Smoke Exposure: Never Smokeless Tobacco: Never Tobacco Cessation:Counseling Given: Not Answered Comments:Quit age 31 Alcohol Use Standard Drinks/Week Comments Not Currently 0 (1 standard drink = 0.6 oz pur e alcohol) Social Connections Answer Date Recorded Connectedness 1 05/16/2024 Financial Resource Strain Answer Date R ecorded Financial Resource Strain 1 2023 Stress Answer Date Recorded Stress 1 05/16/2024 Physical Activity Answer Date Recorded Physical Activity 0 05/09/2021 Food Insecurity Answer Date Recorded Food 1 05/16/2024 Transportation Needs Answer Date Record ed Transportation 1 05/16/2024 Housing Stability Answer Date Recorded Housing 1 05/16/2024 Safety and Environment Answer Date Saeid rded Safety 0 05/09/2021 Utilities Answer Date Recorded Utilities 1 05/16/2024 Employment Answer Date Recorded Stress 0 04/26/2024 Sex and Gender Information Value Date Recorded Sex Assigned at Male 05/09/2021 11:02 AM PDT Legal Sex Male 7:23 AM PDT Gender Identity Male 05/09/2021 11:02 AM PDT Sexual Orientation Straight 05/22/2021 6: 03 AM PDT Last Filed Vital Signs Vital Sign Reading Time Taken Comments Blood Pressure 124/82 09/21/2024 11:31 AM EST Pulse 81 09/21/2024 11:31 AM EST Temperature 36.8 ??C (98.3 ??F) 09/21/2024 11:[address] Respiratory Rate 20 09/21/2024 11:31 AM EST Oxygen Saturation 98% 07/18/2024 1:58 PM EST Inhaled Oxygen Concentration - - Weight 92.5 kg (204 lb) 09/21/2024 11:31 AM EST Height 177.8 cm (5' 10 ) 09/21/2024 11:31 AM EST Body Mass Index 29.27 09/21/2024 11:31 AM EST Plan of Treatment Upcoming Encounters Date Type Department Care Team (Late st Contact Info) Description 11/20/2024 3:00 PM EDT Office Visit [facility] [address] [place] [phone] Beatrice Castro, RN [address] [place] [address] Health Maintenance Due Date Last Done Comments Anxiety Screening 1990 Dental Examination 1990 Retinopathy Screening 2003 Medicare Annual Wellness Visit 09/28/2024 09/28/2023 Diabetes HbA1c 11/20/2024 08/22/2024, 01/0 03/2025, 05/17/2024, Additional history exists [id number] (2 - season) 2024 09/28/2023 Postponed from 04/15/2024 (Patient postponement) Imm-Influenza (#1) 2025 09/28/2023, 0 05/09/2021, 06/09/2011 Postponed from 04/15/2024 (Patient postponement) Urine Albumin Creatinine Ratio Screening 05/17/2025 05/17/2024, 06/22/2021, 05/22/2021 Diabetes Foot Exam 05/29/2025 05/29/2024, 0 11/23/2023, 08/20/2021 Tobacco Cessation Counseling (#1) 05/30/2025 05/30/2024, 05/22/2021, 05/09/2021 Tobacco Screening 05/30/2025 05/30/2024, , 05/09/2021 Lipid Screening 08/22/2025 08/22/2024, 10/0 10/2023, 02/01/2024, Additional history exists Serum Creatinine 09/19/2025 09/19/2024, , 08/22/2024, Additional history exists Imm-DTaP/Tdap/Td (2 - Td or Tdap) 05/03/2033 05/03/2023 Imm-Pneumococcal Completed 05/03/2023 HIV Screening Completed 05/04/2023, 05/22/2021 Hepatitis C Screening Completed 05/04/2023 , 06/22/2021, 05/22/2021 Imm-Hepatitis B Completed 09/28/2023, 05/03/2023 Alcohol and Drug Screen Completed 09/21/19, 05/16/2024, 09/27/2023, Additional history exists Depression Annual Screen Completed 09/21/2024 Procedures Procedure Name Priority Date/Time Associated Diagnosis Comments IMAGING SCANNED DOCUMENT 09/05/2024 3:00 AM EST IMAGING SCANNED DOCUMENT 09/05/2024 3:00 AM EST CARD SCANNED DOCUMENT 09/03/2024 3:00 AM EST IMAGING SCANNED DOCUMENT 09/03/2024 3:00 AM EST REFERRAL SCANNED DOCUMENT 08/28/2024 3:00 AM EST COMPREHENSIVE METABOLIC PANEL Routine 05/17/2024 11:51 AM EDT Type 1 diabetes mellitus with stage 4 chronic kidney disease ([facility]) Essential hypertension LIPID PANEL Routine 05/17/2024 11:51 AM EDT Type 1 diabetes mellitus with stage 4 chronic kidney disease ([facility]) Essential hypertension MICROALBUMIN/CREATINI NE RATIO, URINE, RANDOM Routine 05/17/2024 11:51 AM EDT Type 1 diabetes mellitus with stage 4 chronic kidney disease ([facility]) HEMOGLOBIN GLYCOSYLATED A1C Routine 05/17/2024 11:51 AM EDT Type 1 diabetes mellitus with stage 4 chronic kidney disease ([facility]) 3 COMP FOOT EXAM COMPLETED Routine 11/23/2023 10:30 AM EDT HIV 1/2 AG & AB W/RFLX (4TH GEN) Routine 05/04/2023 10:29 AM EDT Routine screening for STI (sexually transmitted infection) ACUTE HEPATITIS PANEL W/RFLX Routine 05/04/2023 10:29 AM EDT Routine screening for STI (sexually transmitted infection) from Last 3 Months or Most Recently Relevant to Health Maintenance Results * IMAGING SCANNED DOCUMENT (09/05/2024 3:00 AM EST) Only the most recent of3 resultswithin the time period is included. 09/05/2024 3:00 AM EST us Rosimar Meraz PA-C SCAN IMAGING Final Result * CARD SCANNED DOCUMENT (09/03/2024 3:00 AM EST) 09/03/2024 3:00 AM EST us Rosimar Meraz PA-C SCAN ECGS Final Result * REFERRAL SCANNED DOCUMENT (08/28/2024 3:00 AM EST) 08/28/2024 3:00 AM EST us Jessica Meraz PA-C SCAN REFERRAL Final Result * (ABNORMAL) MICROALBUMIN/CREATININE RATIO, URINE, RANDOM (05/17/2024 11:51 AM EDT) CREATININE, RANDOM URINE 126 20 - 320 mg/dL [facility] MICROALBUMIN 34.3 mg/dL [facility] Comment: Verified by repeat analysis. Reference Range Not established MICROALBUMIN/CREA TININE RATIO, RANDOM URINE 272(H) <30 mg/g creat [facility] Comment: The ADA defines abnormalities in albumin excretion as follows: Albuminuria Category ?Result (mg/g creatinine) Normal to Mildly increased ?? <30 Moderately increased ? 30-299 Severely increased ? > OR = 300 The ADA recommends that at least two of three specimens collected within a 3-6 month period be abnormal before considering a patient to be within a diagnostic category. 05/17/2024 11:5 1 AM EDT 05/17/2024 11:51 AM EDT Narrative [facility] - 05/18/2024 6:00 PM EDT FASTING:YES us Jessica Meraz PA-C LAB - NO BLOOD DRAW Final Re sult [facility] [address] [place] [address], [facility] [address] [phone] * LIPID PANEL (05/17/2024 11:51 AM EDT) CHOLESTEROL, TOTAL 159 <200 mg/dL [facility] HDL CHOLESTEROL 53 > OR = 40 mg/dL [facility] TRIGLYCERIDES 97 <150 mg/dL [facility] LDL-CHOLESTEROL 87 99 mg/dL (calc) [facility] Comment: Reference range: <100 Desirable range <100 mg/dL for primary prevention; ?? <70 mg/dL for patients with CHD or diabetic patients with > or = 2 CHD risk factors. LDL-C is now calculated using the Joana calculation, which is a validated novel method providing better accuracy than the Friedewald equation in the estimation of LDL-C. Harpal CARREON et al. ARAM. 2013;310(19): 0731-4744 (http://education.[employer]/faq/EHB160) CHOL/HDLC RATIO 3.0 <5.0 (calc) [facility] NON-HDL CHOLESTEROL 106 <130 mg/dL (calc) [facility] Comment: For patients with diabetes plus 1 major ASCVD risk factor, treating to a non-HDL-C goal of <100 mg/dL (LDL-C of <70 mg/dL) is considered a therapeutic option. Blood Blood / Unknown 05/17/2024 1 1:51 AM EDT 05/17/2024 11:51 AM EDT Narrative [facility] - 05/18/2024 6:00 PM EDT FASTING:YES Jessica Meraz PA-C LAB - BLOOD DRAW Final Resul t [facility] [address] [place] [id number], [facility] [address] [place] [phone] * (ABNORMAL) COMPREHENSIVE METABOLIC PANEL (05/17/2024 11:51 AM EDT) [facility] GLUCOSE 266(H) 65 - 99 mg/dL [facility] Comment: ?Fasting reference interval For someone without known diabetes, a glucose value >125 mg/dL indicates that they may have diabetes and this should be confirmed with a follow-up test. UREA NITROGEN (BUN) 40(H) 7 - 25 mg/dL [facility] CREATININE (blood) 9.75(H) 0.60 - 1.26 mg/dL [facility] Comment: Verified by repeat analysis. EGFR 7(L) > OR = 60 mL/min/1. 73m2 [facility] BUN/CREATININE RATIO 4(L) 6 - 22 (calc) [facility] SODIUM 136 135 - 146 mmol/L [facility] POTASSIUM 4.3 3.5 - 5.3 mmol/L [facility] CHLORIDE 98 98 - 110 mmol/L [facility] CARBON DIOXIDE 27 20 - 32 mmol/L [facility] CALCIUM 9.5 8.6 - 10.3 mg/dL [facility] PROTEIN, TOTAL 7.1 6.1 - 8.1 g/dL [facility] ALBUMIN 4.3 3.6 - 5.1 g/dL [facility] GLOBULIN 2.8 1.9 - 3.7 g/dL (calc) [facility] ALBUMIN/GLOBULI N RATIO 1.5 1.0 - 2.5 (calc) [facility] BILIRUBIN, TOTAL 0.5 0.2 - 1.2 mg/dL [facility] ALKALINE PHOSPHATASE 86 36 - 130 U/L [facility] AST 18 10 - 40 U/L [facility] ALT 13 9 - 46 U/L [facility] Blood Blood / Unknown 05/17/2024 1 1:51 AM EDT 05/17/2024 11:51 AM EDT Narrative [facility] - 05/18/2024 6:00 PM EDT FASTING:YES Jessica Meraz PA-C LAB - BLOOD DRAW Edited Resu lt - Final [facility] [address] [address], [facility] [address] [address] * 3 COMP FOOT EXAM COMPLETED (11/23/2023 10:30 AM EDT) Provider [facility] EVALUATION AND MGMT Final Result * HIV 1/2 AG & AB W/RFLX (4TH GEN) (05/04/2023 10:29 AM EDT) HIV AG/AB, 4TH GEN NON-REAC TIVE NON-REAC TIVE [facility] Comment: HIV-1 antigen and HIV-1/HIV-2 antibodies were not detected. There is no laboratory evidence of HIV infection. PLEASE NOTE: This information has been disclosed to you from records whose confidentiality may be protected by state law. ??If your state requires such protection, then the state law prohibits you from making any further disclosure of the information without the specific written consent of the person to whom it pertains, or as otherwise permitted by law. A general authorization for the release of medical or other information is NOT sufficient for this purpose. ?? For additional information please refer to http://[employer]onate/faq/NYN606 (This link is being provided for informational/ educational purposes only.) The performance of this assay has not been clinically validated in patients less than 2 years old. Blood Blood / Unknown 05/04/2023 1 0:29 AM EDT 05/04/2023 10:30 AM EDT Narrative [facility] - 05/05/2023 11:49 PM EDT FASTING:YES Nancy CALDERON LAB - BLOOD DRAW Final Result [facility] [address] [place] [address], [facility] [address] [phone] * ACUTE HEPATITIS PANEL W/RFLX (05/04/2023 10:29 AM EDT) HEPATITIS A IGM ANTIBODY NON-REACT PADMINI NON-REACT PADMINI [facility] COMMENT [facility] HEPATITIS B SURFACE ANTIGEN NON-REACT PADMINI NON-REACT PADMINI [facility] COMMENT [facility] HEPATITIS B CORE IGM ANTIBODY NON-REACT PADMINI NON-REACT PADMINI [facility] COMMENT [facility] HEPATITIS C ANTIBODY NON-REACT PADMINI NON-REACT PADMINI [facility] Comment: HCV antibody was non-reactive. There is no laboratory evidence of HCV infection. In most cases, no further action is required. However, if recent HCV exposure is suspected, a test for HCV RNA (test code 81371) is suggested. For additional information please refer to http://[employer]onate/faq/QHX93w2 (This link is being provided for informational/ educational purposes only.) Blood Blood / Unknown 05/04/2023 1 0:29 AM EDT 05/04/2023 10:30 AM EDT Narrative [facility] - 05/05/2023 11:49 PM EDT FASTING:YES For additional information, please refer to http://[employer]/faq/BFY528 (This link is being provided for informational/ educational purposes only.) For additional information, please refer to http://[employer]/faq/YYI842 (This link is being provided for informational/ educational purposes only.) For additional information, please refer to http://[employer]/faq/ILE768 (This link is being provided for informational/ educational purposes only.) Nancy [facility] LAB - BLOOD DRAW Final Result Performing Organization Address City/State/[facility] Co de Phone Number [facility] [address] [address], [facility] [address] [phone] from Last 3 Months or Most Recently Relevant to Health Maintenance Insurance [place] Care Teams Radio Station Manager Relationship Specialty Start Date End Date Jessica Meraz PA-C [address] [place] [address] PCP - General [place] 02/09/23
--- OUTSIDE RECORDS SUMMARY | 2024-11-16 08:50 | XMS_ITS | Encounter Summary ---
Author Organization [facility] Address [address] [facility] [address] [place] [address] Phone Care Team Providers Care Aadc Plans Staff Officer Name Role Phone Jordan Woo MD Primary Care Provider +1- [phone] Reason for Visit * Reason Comments Med Refill Encounter Details Date Type Department Care Team (Late st Contact Info) Description 10/22/2024 Refill [facility] [address] [place] [address] Jordan Elaine MD [address] [facility] [address] [place] [phone] Social History Tobacco Use Types Packs/Day Years [...] on file documented as of this encounter Plan of Treatment Not on file documented as of this encounter Procedures Procedure Name Priority Date/Time Associated Diagnosis Comments HEMOGLOBIN Routine 11/09/2024 3:00 AM EDT HEMOGLOBIN AND HEMATOCRIT, BLOOD Routine 10/31/2024 3:00 AM EDT documented in this encounter Results * (ABNORMAL) Hemoglobin (11/09/2024 3:00 AM EDT) Hgb 9.7(L) 13.7 - 17.5 g/dL [facility] Hemoglobin x 3 29.1(L) 41.1 - 52.5 g/dL [facility] 11/09/2024 3:00 AM EDT 11/10/2024 1:00 PM EDT us Jordan Elaine MD LAB BLOOD ORDERABLES Final Re sult [facility] [address] [place] [address] * (ABNORMAL) Hemoglobin and hematocrit (10/31/2024 3:00 AM EDT) Hgb 9.6(L) 13.7 - 17.5 g/dL [facility] Hematocrit 29.3(L) 40.1 - 51.0 % [facility] Hemoglobin x 3 28.8(L) 41.1 - 52.5 g/dL [facility] 10/31/2024 3:00 AM EDT 11/01/2024 1:22 PM EDT us Jordan Elaine MD LAB BLOOD ORDERABLES Final Re sult Performing Organization Address City/[facility]/ZIP Co de Phone Number [facility] [address] [place] [address] documented in this encounter Visit Diagnoses Not on filedocumented in this encounter Care Teams Aadc Plans Staff Officer Relationship Specialty Start Date End Date Jordan Woo MD [address] [place] [address] PCP - General Internal Medicine 06/03/21 documented as of this encounter
== END 2024-11-16 08:28 | disposition home or self-care (01) ==
LOC: HO.HOSX 08:27
PROVIDERS: Visit Provider Physician Assistant
DX: M25.562 Pain in left knee (principal)
CPT/HCPCS: 73562

== ENCOUNTER 2024-11-16 10:49 | Outpatient (AMB) | payer OTHER, MEDICAID, SELFPAY ==
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
[2024-11-16 11:15] VITALS: BMI 27.8
--- OUTSIDE RECORDS SUMMARY | 2024-11-16 12:32 | XMS_ITS | Encounter Summary ---
Author Organization [facility]. Address [address] [address] Phone Care Team Providers Care Computer Installation Engineer Name Role Phone Jun Woo MD Primary Care Provider +1- [phone] Encounter Details Date Type Department Care Team (Late st Contact Info) Description 10/22/2024 Treatment [facility]. [address] [address] Jun Lynch MD [address] [address] End stage renal disease; Dependence [...] care for end stage renal disease. Attending Fairground Operator: JUN LYNCH Dialysis Location: [facility] Schedule: Shift: ADEQUACY ASSESSMENT Kt/V, Natural [...] dialysis documented in this encounter Care Teams Computer Installation Engineer Relationship Specialty Start Date End Date Jun Woo MD [address] [place] [address] PCP - General Internal Medicine 06/03/21 documented as of this encounter
--- OUTSIDE RECORDS SUMMARY | 2024-11-16 12:32 | XMS_ITS | Encounter Summary ---
Author Organization [facility] [place] Address [address] [facility] [address] [place] [address] Phone Care Team Providers Care Electrical Engineering Drafting Officer Name Role Phone Jordan Woo MD Primary Care Provider +1- [phone] Reason for Visit * Reason Comments Med Refill Encounter Details Date Type Department Care Team (Late st Contact Info) Description 10/22/2024 Refill [facility] [address] [place] [address] Jordan Elaine MD [address] [facility] [address] [place] [phone] Social History Tobacco Use Types Packs/Day Years [...] Final Re sult [facility] [address] [place] [address] * (ABNORMAL) Hemoglobin and hematocrit (10/31/2024 3:00 AM EDT) Hgb 9.6(L) 13.7 - 17.5 g/dL [facility] Hematocrit 29.3(L) 40.1 - 51.0 % [facility] Hemoglobin x 3 28.8(L) 41.1 - 52.5 g/dL [facility] 10/31/2024 3:00 AM EDT 11/01/2024 1:22 PM EDT us Jordan Elaine MD LAB BLOOD ORDERABLES Final Re sult Performing Organization Address City/[facility]/ZIP Co de Phone Number [facility] [address] [place] [address] documented in this encounter Visit Diagnoses Not on filedocumented in this encounter Care Teams Electrical Engineering Drafting Officer Relationship Specialty Start Date End Date Jordan Woo MD [address] [place] [address] PCP - General Internal Medicine 06/03/21 documented as of this encounter
--- OUTSIDE RECORDS SUMMARY | 2024-11-16 12:32 | XMS_ITS | Clinical Summary ---
Author Organization [facility] [place] Address [address] [facility] [address] [place] [address] Phone Care Team Providers Care Unit Coordinator Name Role Phone Jordan Woo MD Primary Care Provider +1- [phone] Allergies No known active allergies Medications insulin [...] NAUSEA 08/25/19 22 Active Continuous Blood Gluc Dairy Cattle Farm Manager (Dexcom G6 Dairy Cattle Farm Manager) device 09/08/19 22 Active NovoLOG FLEXPEN 100 [...] 90 tablet 3 06/30/20 22 Active B phxxnxs-O-qhfc c acid 1 MG capsule Take 1 [...] 11/14/2024 Treatment [facility] [address] [address] Jordan Elaine MD End stage renal disease; Dependence on renal dialysis 11/05/2024 Treatment [facility] [address] [address] Jordan Elaine MD End stage renal disease; Dependence on renal dialysis 10/29/2024 Treatment [facility] [address] [address] Jordan Elaine MD End stage renal disease; Dependence on renal dialysis 10/22/2024 Treatment [facility] [address] [address] Jordan Elaine MD End stage renal disease; Dependence on renal dialysis 10/22/2024 Refill [facility] [address] [place] [address] Jordan Elaine MD 10/21/2024 [facility]ill [facility] [address] [place] [address] Jordan Elaine MD 10/15/2024 Treatment [facility] [address] [address] Jordan Elaine MD End stage renal disease; Dependence on renal dialysis 10/12/2024 Treatment [facility] [address] [address] Jordan Elaine MD End stage renal disease; Dependence on renal dialysis 10/05/2024 Treatment [facility] [address] [address] Jordan Elaine MD 09/24/2024 Treatment [facility] [address] [place] [address] Jordan Elaine MD 09/17/2024 Treatment [facility] [address] [address] Jordan Elaine MD 09/05/2024 Treatment [facility] [address] [address] Jordan Elaine MD 09/03/2024 Treatment [facility] [address] [address] Viet Harvey MD 08/27/2024 Treatment [facility] [address] [address] Jordan Elaine MD 08/24/2024 Treatment [facility] [place] [address] [place] [address] Jordan Elaine MD from Last 3 Months [...] sult Performing Organization Address [facility] Co de Phone Number [facility] [address] [place] [address] * (ABNORMAL) Hemoglobin and hematocrit (10/31/2024 3:00 AM EDT) Only the most recent of3 resultswithin the time period is included. Hgb 9.6(L) 13.7 - 17.5 g/dL [facility] Hematocrit 29.3(L) 40.1 - 51.0 % [facility] Hemoglobin x 3 28.8(L) 41.1 - 52.5 g/dL [facility] 10/31/2024 3:00 AM EDT 11/01/2024 1:22 PM EDT Jordan Elaine MD LAB BLOOD ORDERABLES Final Re sult Performing Organization Address City/[facility]/ZIP Co de Phone Number [facility] [address] [place] [address] * LIH (10/17/2024 3:00 AM EST) Only the most recent of3 resultswithin the time period is included. Lipemia Normal Normal [facility] Icterus Normal Normal [facility] Hemolysis Normal Normal [facility] 10/17/2024 3:00 AM EST 10/18/2024 3:48 PM EST Jordan Elaine MD LAB [id number] SOLICITED RESULTS Final Result Performing Organization Address [facility] de Phone Number [facility] [address] [place] [address] * (ABNORMAL) Kt/V Natural Log, URR (10/17/2024 [...] 3:48 PM EST Jordan Elaine MD LAB [id number] SOLICITED RESULTS Final Result Performing Organization Address [facility] Co de Phone Number [facility] [address] [place] [address] * (ABNORMAL) Calcium Phosphorus Product, Adjusted (10/17/2024 [...] 3:48 PM EST Jordan Elaine MD LAB [id number] SOLICITED RESULTS Final Result Performing Organization Address City/[facility] de Phone Number [facility] [address] [place] [address] * (ABNORMAL) TSAT (10/17/2024 3:00 AM EST) Only the most recent of3 resultswithin the time period is included. [facility] Iron 82 65 - 175 ug/dL [facility] Transferrin 128(L) 215 - 365 mg/dL [facility] TIBC 179(L) 211 - 406 ug/dL [facility] Iron Saturation (TSat) 46 22 - 52 % [facility] 10/17/2024 3:00 AM EST 10/18/2024 3:48 PM EST Jordan Elaine MD LAB BLOOD ORDERABLES Final Re sult Performing Organization Address [facility] de Phone Number [facility] [address] [place] [address] * (ABNORMAL) CBC and Differential (10/17/2024 3:00 AM EST) Only the most recent of3 resultswithin the time period is included. [facility] DIFFERENTIAL MANUAL, 2 Not Indicated [facility] White [...] sult Performing Organization Address [facility] de Phone Number [facility] [address] [place] [address] * ALT (10/17/2024 3:00 AM EST) Only the most recent of3 resultswithin the time period is included. ALT (SGPT) 14 10 - 49 U/L [facility] 10/17/2024 3:00 AM EST 10/18/2024 3:48 PM EST Jordan Elaine MD LAB BLOOD ORDERABLES Final Re sult Performing Organization Address [facility] de Phone Number [facility] [address] [place] [address] * AST (10/17/2024 3:00 AM EST) Only the most recent of3 resultswithin the time period is included. AST (SGOT) 20 <34 U/L [facility] 10/17/2024 3:00 AM EST 10/18/2024 3:48 PM EST Jordan Elaine MD LAB BLOOD ORDERABLES Final Re sult Performing Organization Address [facility] de Phone Number [facility] [address] [place] [address] * Protein, total (10/17/2024 3:00 AM EST) Only the most recent of3 resultswithin the time period is included. Total Protein 7.0 6.4 - 8.9 g/dL [facility] 10/17/2024 3:00 AM EST 10/18/2024 3:48 PM EST Jordan Elaine MD LAB BLOOD ORDERABLES Final Re sult Performing Organization Address [facility] de Phone Number [facility] [address] [place] [address] * (ABNORMAL) Alkaline phosphatase (10/17/2024 3:00 AM EST) Only the most recent of3 resultswithin the time period is included. Alkaline Phosphatase 133(H) 46 - 116 U/L [facility] 10/17/2024 3:00 AM EST 10/18/2024 3:48 PM EST Jordan Elaine MD LAB BLOOD ORDERABLES Final Re sult Performing Organization Address [facility] de Phone Number [facility] [address] [place] [address] * (ABNORMAL) PTH, Intact (10/17/2024 3:00 AM [...] sult Performing Organization Address [facility] de Phone Number [facility] [address] [place] [address] * (ABNORMAL) Magnesium (10/17/2024 3:00 AM EST) Only the most recent of3 resultswithin the time period is included. Magnesium 1.8(L) 1.9 - 2.7 mg/dL [facility] 10/17/2024 3:00 AM EST 10/18/2024 3:48 PM EST Jordan Elaine MD LAB BLOOD ORDERABLES Final Re sult Performing Organization Address [facility] Co de Phone Number [facility] [address] [place] [address] * (ABNORMAL) Lactate dehydrogenase (10/17/2024 3:00 AM EST) Only the most recent of3 resultswithin the time period is included. LDH 265(H) 120 - 246 U/L [facility] 10/17/2024 3:00 AM EST 10/18/2024 3:48 PM EST Jordan Elaine MD LAB BLOOD ORDERABLES Final Re sult Performing Organization Address [facility] de Phone Number [facility] [address] [place] [address] * (ABNORMAL) Glucose, random (10/17/2024 3:00 AM EST) Only the most recent of3 resultswithin the time period is included. Glucose 474(H) 74 - 109 mg/dL [facility] 10/17/2024 3:00 AM EST 10/18/2024 3:48 PM EST Jordan Elaine MD LAB BLOOD ORDERABLES Final Re sult Performing Organization Address [facility] de Phone Number [facility] [address] [place] [address] * (ABNORMAL) Ferritin (10/17/2024 3:00 AM EST) Only the most recent of3 resultswithin the time period is included. Ferritin 672(H) 22 - 322 ng/mL [facility] 10/17/2024 3:00 AM EST 10/18/2024 3:48 PM EST Jordan Elaine MD LAB BLOOD ORDERABLES Final Re sult Performing Organization Address [facility] de Phone Number [facility] [address] [place] [address] * (ABNORMAL) Creatinine, serum (10/17/2024 3:00 AM EST) Only the most recent of3 resultswithin the time period is included. Creatinine 13.43(H) 0.70 - 1.30 mg/dL [facility] 10/17/2024 3:00 AM EST 10/18/2024 3:48 PM EST Jordan Elaine MD LAB BLOOD ORDERABLES Final Re sult Performing Organization Address [facility] de Phone Number [facility] [address] [place] [address] * (ABNORMAL) Bilirubin, total (10/17/2024 3:00 AM EST) Only the most recent of3 resultswithin the time period is included. Total Bilirubin 0.2(L) 0.3 - 1.2 mg/dL [facility] 10/17/2024 3:00 AM EST 10/18/2024 3:48 PM EST Jordan Elaine MD LAB BLOOD ORDERABLES Final Re sult Performing Organization Address [facility] de Phone Number [facility] [address] [place] [address] * (ABNORMAL) Electrolyte panel (10/17/2024 3:00 AM [...] sult Performing Organization Address [facility] de Phone Number [facility] [address] [place] [address] * Vitamin D 25 Hydroxy (08/31/2024 3:00 AM EST) Pathologist [facility] Vitamin D, 25-Hydroxy 9 30 - 100 ng/mL [facility] Comment: Status ? Adult ?? Pediatric Deficient: ? <20 ? <15 Insufficient: ??20-29 ?? 15-19 Sufficient: ?30-100 ??20-100 08/31/2024 3:00 AM EST 09/01/2024 1:20 PM EST Jordan Elaine MD LAB BLOOD ORDERABLES Final Re sult Performing Organization Address [facility] de Phone Number [facility] [address] [place] [address] * Confirmation Test HCV (08/22/2024 3:00 AM EST) Pathologist [facility] Hep C Ab Confirmation Not needed [facility] 08/22/2024 3:00 AM EST 08/23/2024 3:48 PM EST Jordan Elaine MD LAB BLOOD ORDERABLES Final Re sult Performing Organization Address City/[facility] Co de Phone Number [facility] [address] [place] [address] * HEPATITIS C ABS W/REFLEX RNA DETECTR (08/22/2024 3:00 AM EST) Pathologist [facility] Hep C Virus Ab Non-Reacti ve Non-Reacti ve [facility] 08/22/2024 3:00 AM EST 08/23/2024 4:14 PM EST Jordan Elaine MD LAB [id number] SOLICITED RESULTS Final Result Performing Organization Address [facility] de Phone Number [facility] [address] [place] [address] * Aluminum level (08/22/2024 3:00 AM EST) Aluminum 3 1 - 20 ug/L [facility] 08/22/2024 3:00 AM EST 08/23/2024 4:06 PM EST Jordan Elaine MD LAB BLOOD ORDERABLES Final Re sult Performing Organization Address [facility] de Phone Number [facility] [address] [place] [address] * Hepatitis B Surface Antibody (08/22/2024 3:00 AM EST) Hep B Surface Antibody >1,000 mIU/mL [facility] Comment: Interpretation: <10: No Immunity >=10: Probable Immunity 08/22/2024 3:00 AM EST 08/23/2024 4:14 PM EST Jordan Elaine MD LAB BLOOD ORDERABLES Final Re sult Performing Organization Address [facility] de Phone Number [facility] [address] [place] [address] * Uric Acid (08/22/2024 3:00 AM EST) Uric Acid 5.2 4.4 - 7.6 mg/dL [facility] 08/22/2024 3:00 AM EST 08/23/2024 4:14 PM EST Jordan Elaine MD LAB BLOOD ORDERABLES Final Re sult Performing Organization Address [facility] de Phone Number [facility] [address] [place] [address] * (ABNORMAL) Hemoglobin A1c (08/22/2024 3:00 AM [...] Final Re abbeyt [facility] [address] [place] [address] * (ABNORMAL) Lipid panel (08/22/2024 3:00 AM [...] Final Re sult [facility] [address] [place] [address] from Last 3 Months Insurance [place] Care Teams Unit Coordinator Relationship Specialty Start Date End Date Jordan Woo MD [address] [place] [address] PCP - General Internal Medicine 06/03/21
--- OUTSIDE RECORDS SUMMARY | 2024-11-16 12:32 | XMS_ITS | Clinical Summary ---
Author Organization [facility] Address [address] [place] [address] Care Team Providers Care Senior Electronics Engineer Name Role Phone Jessica Meraz PA-C Primary Care Provider [phone] Source Comments PLEASE NOTE, if this patient [...] disease with dialysis modality undecided, stage 5 ([facility]) 09/28/2023 Class 1 obesity 08/03/2022 SARS-CoV-2 positive 08/21/2021 Hypertensive urgency 2021 Nicotine dependence 2021 Generalized edema 07/13/2021 Persistent proteinuria 06/22/2021 Hypercholesterolemia 05/26/2021 Type 1 diabetes mellitus wit h stage 4 chronic kidney disease ([facility]) 05/09/2021 Stage 4 chronic kidney disease ([facility]) 021 Essential hypertension 05/09/2021 Tobacco abuse 05/09/2021 Acute kidney injury ([facility] V24) 04/03/2021 Encounters Date Type Department Care Team Description 09/21/2024 11:20 AM EST Office Visit [address] [phone] Jessica Meraz PA-C Visit for eye and vision exam (Primary Dx) 09/04/2024 Interim Notes [address] [phone] Dago Adair, PharmD from Last 3 Months [...] Description 11/20/2024 3:00 PM EDT Office Visit [facility] [address] [place] [phone] Beatrice Castro, RN [address] [place] [address] Health Maintenance Due Date Last Done Comments Anxiety Screening 1990 Dental Examination 1990 Retinopathy Screening 2003 Medicare Annual Wellness Visit 09/28/2024 09/28/2023 Diabetes HbA1c 11/20/2024 08/22/2024, 01/0 03/2025, 05/17/2024, Additional history exists [id number] (2 - season) 2024 09/28/2023 Postponed from [...] mellitus with stage 4 chronic kidney disease ([facility]) Essential hypertension LIPID PANEL Routine 05/17/2024 11:51 AM EDT Type 1 diabetes mellitus with stage 4 chronic kidney disease ([facility]) Essential hypertension MICROALBUMIN/CREATINI NE RATIO, URINE, RANDOM Routine 05/17/2024 11:51 AM EDT Type 1 diabetes mellitus with stage 4 chronic kidney disease ([facility]) HEMOGLOBIN GLYCOSYLATED A1C Routine 05/17/2024 11:51 AM EDT Type 1 diabetes mellitus with stage 4 chronic kidney disease ([facility]) 3 COMP FOOT EXAM COMPLETED Routine 11/23/2023 [...] RANDOM URINE 126 20 - 320 mg/dL [facility] MICROALBUMIN 34.3 mg/dL [facility] Comment: Verified by repeat analysis. Reference Range Not established MICROALBUMIN/CREA TININE RATIO, RANDOM URINE 272(H) <30 mg/g creat [facility] Comment: The ADA defines abnormalities in albumin [...] AM EDT 05/17/2024 11:51 AM EDT Narrative Code Fever - 05/18/2024 6:00 PM EDT FASTING:YES us Jessica Meraz PA-C LAB - NO BLOOD DRAW Final Re sult Code Fever [address] [place] [id number], [facility] [address] [address] * LIPID PANEL (05/17/2024 11:51 AM EDT) CHOLESTEROL, TOTAL 159 <200 mg/dL [facility] HDL CHOLESTEROL 53 > OR = 40 mg/dL [facility] TRIGLYCERIDES 97 <150 mg/dL [facility] LDL-CHOLESTEROL 87 99 mg/dL (calc) [facility] Comment: Reference range: <100 Desirable range <100 mg/dL for primary prevention; ?? <70 mg/dL for patients with CHD or diabetic patients with > or = 2 CHD risk factors. LDL-C is now calculated using the Joana calculation, which is a validated novel method providing better accuracy than the Friedewald equation in the estimation of LDL-C. Harpal CARREON et al. ARAM. 2013;310(19): 7896-5260 (http://education.[employer]/faq/XHY767) CHOL/HDLC RATIO 3.0 <5.0 (calc) [facility] NON-HDL CHOLESTEROL 106 <130 mg/dL (calc) [facility] Comment: For patients with diabetes plus 1 major ASCVD risk factor, treating to a non-HDL-C goal of <100 mg/dL (LDL-C of <70 mg/dL) is considered a therapeutic option. Blood Blood / Unknown 05/17/2024 1 1:51 AM EDT 05/17/2024 11:51 AM EDT Narrative Code Fever - 05/18/2024 6:00 PM EDT FASTING:YES Jessica Meraz PA-C LAB - BLOOD DRAW Final Resul t Code Fever [address] [place] [id number], [facility] [address] [place] [phone] * (ABNORMAL) COMPREHENSIVE METABOLIC PANEL (05/17/2024 11:51 AM EDT) [facility] [address] GLUCOSE 266(H) 65 - 99 mg/dL [facility] Comment: ?Fasting reference interval For someone without known diabetes, a glucose value >125 mg/dL indicates that they may have diabetes and this should be confirmed with a follow-up test. UREA NITROGEN (BUN) 40(H) 7 - 25 mg/dL [facility] CREATININE (blood) 9.75(H) 0.60 - 1.26 mg/dL [facility] Comment: Verified by repeat analysis. EGFR 7(L) > OR = 60 mL/min/1. 73m2 [facility] BUN/CREATININE RATIO 4(L) 6 - 22 (calc) [facility] SODIUM 136 135 - 146 mmol/L [facility] POTASSIUM 4.3 3.5 - 5.3 mmol/L [facility] CHLORIDE 98 98 - 110 mmol/L [facility] CARBON DIOXIDE 27 20 - 32 mmol/L [facility] CALCIUM 9.5 8.6 - 10.3 mg/dL [facility] PROTEIN, TOTAL 7.1 6.1 - 8.1 g/dL [facility] ALBUMIN 4.3 3.6 - 5.1 g/dL [facility] GLOBULIN 2.8 1.9 - 3.7 g/dL (calc) [facility] ALBUMIN/GLOBULI N RATIO 1.5 1.0 - 2.5 (calc) [facility] BILIRUBIN, TOTAL 0.5 0.2 - 1.2 mg/dL [facility] ALKALINE PHOSPHATASE 86 36 - 130 U/L [facility] AST 18 10 - 40 U/L [facility] ALT 13 9 - 46 U/L [facility] Blood Blood / Unknown 05/17/2024 1 1:51 AM EDT 05/17/2024 11:51 AM EDT Narrative [facility] - 05/18/2024 6:00 PM EDT FASTING:YES Jessica Meraz PA-C LAB - BLOOD DRAW Edited Resu lt - Final [facility] [address] [address], [facility] [address] [phone] * 3 COMP FOOT EXAM COMPLETED (11/23/2023 10:30 AM EDT) Provider [facility] EVALUATION AND MGMT Final Result * HIV 1/2 AG & AB W/RFLX (4TH GEN) (05/04/2023 10:29 AM EDT) HIV AG/AB, 4TH GEN NON-REAC TIVE NON-REAC TIVE [facility] Comment: HIV-1 antigen and HIV-1/HIV-2 antibodies [...] ?? For additional information please refer to http://Ohmx.[employer] Dimensions/faq/HMW227 (This link is being provided for informational/ educational purposes only.) The performance of this assay has not been clinically validated in patients less than 2 years old. Blood Blood / Unknown 05/04/2023 1 0:29 AM EDT 05/04/2023 10:30 AM EDT Narrative Code Fever - 05/05/2023 11:49 PM EDT FASTING:YES Nancy CALDERON LAB - BLOOD DRAW Final Result Code Fever [address] [place] [phone], [facility] [address] [phone] * ACUTE HEPATITIS PANEL W/RFLX (05/04/2023 10:29 AM EDT) HEPATITIS A IGM ANTIBODY NON-REACT PADMINI NON-REACT PADMINI [facility] COMMENT [facility] HEPATITIS B SURFACE ANTIGEN NON-REACT PADMINI NON-REACT PADMINI [facility] COMMENT [facility] HEPATITIS B CORE IGM ANTIBODY NON-REACT PADMINI NON-REACT PADMINI [facility] COMMENT [facility] HEPATITIS C ANTIBODY NON-REACT PADMINI NON-REACT PADMINI [facility] Comment: HCV antibody was non-reactive. There is no laboratory evidence of HCV infection. In most cases, no further action is required. However, if recent HCV exposure is suspected, a test for HCV RNA (test code 10902) is suggested. For additional information please refer to http://Ohmx.Cardiac Dimensions/faq/PEE00o6 (This link is being provided for informational/ educational purposes only.) Blood Blood / Unknown 05/04/2023 1 0:29 AM EDT 05/04/2023 10:30 AM EDT Narrative [facility] - 05/05/2023 11:49 PM EDT FASTING:YES For additional information, please refer to http://Ohmx.Cardiac Dimensions/faq/WZT113 (This link is being provided for informational/ educational purposes only.) For additional information, please refer to http://Ohmx.Cardiac Dimensions/faq/PXK254 (This link is being provided for informational/ educational purposes only.) For additional information, please refer to http://Ohmx.Cardiac Dimensions/faq/ZUD238 (This link is being provided for informational/ educational purposes only.) Nancy CALDERON LAB - BLOOD DRAW Final Result Performing Organization Address City/State/[facility] Co de Phone Number [facility] [address] [address], [facility] [address] [phone] from Last 3 Months or Most Recently Relevant to Health Maintenance [place] Care Teams Senior Electronics Engineer Relationship Specialty Start Date End Date Jessica Meraz PA-C [address] [place] [address] PCP - General FAMILY MEDICINE, [place] 02/09/23
--- OUTSIDE RECORDS SUMMARY | 2024-11-16 12:32 | XMS_ITS | Encounter Summary ---
Author Organization [facility] [address] [facility] [address] [place] [address] Phone Care Team Providers Care Rn Picu Name Role Phone Jordan Woo MD Primary Care Provider [phone] Encounter Details Date Type Department Care Team (Late st Contact Info) Description 12/14/2021 Office Communication [facility] [address] [place] [phone] Ammy Alejandro [address] [facility] [address] [place] [address] Social History Tobacco Use Types Packs/Day Years [...] on filedocumented in this encounter Care Teams Rn Picu Relationship Specialty Start Date End Date Jordan Woo MD [address] [place] [address] PCP - General Internal Medicine 06/03/21 documented as of this encounter
--- OUTSIDE RECORDS SUMMARY | 2024-11-16 12:32 | XMS_ITS | Clinical Summary ---
Author Organization 175 [facility] Address [address] [place] [address] Phone Care Team Providers Care Under Water Assistant Name Role Phone Jessica Meraz Primary Care Provider Allergies No known active allergies Medications polyethylene [...] kidney disease) 12/11/2020 Overview (07/04/2024): Never saw newspaper inserter, no records from PCP OF 12/11/20 Encounters Date Type Department Care Team Description 09/05/2024 11:38 AM EST - 09/05/2024 1:37 PM [facility] [address] [place] [address] Jordan Pantoja MD Cervical strain, acute, initial encounter (Primary Dx); Strain of lumbar region, initial encounter Discharge Disposition: Home or Self Care 09/03/2024 6:46 AM EST - 09/03/2024 11:40 AM [facility] [address] [place] [address] Jose Gregory MD Chronic kidney disease, unspecified CKD stage (Primary Dx); Influenza A Discharge Disposition: Home or Self Care 08/20/2024 3:30 PM EST Consult Orthopedic Surgery - [place] [address] [place] [phone] Elpidio Villegas DPM Hallux rigidus of left [...] callosities; Type 1 diabetes mellitus with mononeuropathy ([facility]/HCC); Ulcer of toe of right foot, limited to breakdown of skin ([facility]/HCC) from Last 3 Months Medical History Medical History Date Comments Urinary tract infection DX:Urina ry tract infection Microscopic hematuria DX:Microsc opic hematuria Diabetes mellitus ([facility]/HCC) DX:D iabetes mellitus ([facility]); COMMENT: Type 1, followed by v belt finisher at [facility] CKD (chronic kidney disease) DX: CKD (chronic kidney disease); COMMENT: Never saw newspaper inserter, no records from PCP OF 12/11/20 Social [...] Signed Date: 09/05/2024 12:57 ET Workstation ID: [id number] Transcribed By: Self Edit Transcribed Date: 09/05/2024 [...] Signed Date: 09/05/2024 12:57 ET Workstation ID: [id number] Transcribed By: Self Edit Transcribed Date: 09/05/2024 [...] Signed Date: 09/05/2024 12:59 ET Workstation ID: [id number] Transcribed By: Self Edit Transcribed Date: 09/05/2024 [...] Signed Date: 09/05/2024 12:59 ET Workstation ID: [id number] Transcribed By: Self Edit Transcribed Date: 09/05/2024 [...] -------- FINAL REPORT -------- Dictated By: Omer Ramirze Dictated Date: 09/03/2024 09:06 ET Assigned Physician: Omer Ramirez Reviewed and Electronically Signed By: Omer Ramirez Signed Date: 09/03/2024 09:07 ET Workstation ID: [id number] Transcribed By: Self Edit Transcribed Date: 09/03/2024 [...] Signed Date: 09/03/2024 09:07 ET Workstation ID: [id number] Transcribed By: Self Edit Transcribed Date: 09/03/2024 09:06 ET Gene Carnes MD IMG XR PROCEDURES Final Result * Troponin I high sensitivity (09/03/2024 8:52 AM EST) Only the most recent of2 resultswithin the time period is included. [facility] High Sensitivity Troponin I 8 <=79 ng/L LAB CHEMISTRY METHOD 09/03/2024 9:40 AM [facility] Blood Venous blood specimen / Unknown Venipuncture / Unknown 09/03/2024 8:52 AM EST 09/03/2024 9:12 AM EST [facility] - 09/03/2024 9:40 AM EST High levels of biotin in samples may falsely decrease hsTroponin values. ??Use caution when interpreting hsTroponin results in patients taking biotin who exhibit renal impairment (eGFR <60) or in patients taking more than 20 mg/day of biotin. us Gene Carnes MD LAB BLOOD ORDERABLES Final Resu lt [facility] [address] [place] [address], [place] [phone] * (ABNORMAL) Respiratory virus panel molecular study (09/03/2024 7:24 AM EST) [facility] Adenovirus Detection by PCR Not Detected Not Detected LAB MICROBIOLOGY METHOD 09/03/2024 8:21 AM [facility] Influenza B PCR Not Detected Not Detected LAB MICROBIOLOGY METHOD 09/03/2024 8:21 AM [facility] Coronavirus 229E Not Detected Not Detected LAB MICROBIOLOGY METHOD 09/03/2024 8:21 AM [facility] Coronavirus HKU1 Not Detected Not Detected LAB MICROBIOLOGY METHOD 09/03/2024 8:21 AM [facility] Coronavirus OC43 Not Detected Not Detected LAB MICROBIOLOGY METHOD 09/03/2024 8:21 AM [facility] Coronavirus NL63 Not Detected Not Detected LAB MICROBIOLOGY METHOD 09/03/2024 8:21 AM [facility] Parainfluenza Virus 1 Not Detected Not Detected LAB MICROBIOLOGY METHOD 09/03/2024 8:21 AM [facility] Parainfluenza Virus 2 Not Detected Not Detected LAB MICROBIOLOGY METHOD 09/03/2024 8:21 AM [facility] Parainfluenza Virus 3 Not Detected Not Detected LAB MICROBIOLOGY METHOD 09/03/2024 8:21 AM [facility] Parainfluenza Virus 4 Not Detected Not Detected LAB MICROBIOLOGY METHOD 09/03/2024 8:21 AM [facility] RSV PCR Not Detected Not Detected LAB MICROBIOLOGY METHOD 09/03/2024 8:21 AM [facility] Human Metapneumovirus A and B Not Detected Not Detected LAB MICROBIOLOGY METHOD 09/03/2024 8:21 AM [facility] Rhinovirus/Entero virus Not Detected Not Detected LAB MICROBIOLOGY METHOD 09/03/2024 8:21 AM [facility] Bordetella pertussis Not Detected Not Detected LAB MICROBIOLOGY METHOD 09/03/2024 8:21 AM [facility] Bordetella parapertussis Not Detected Not Detected LAB MICROBIOLOGY METHOD 09/03/2024 8:21 AM [facility] Influenza A H3 Detected(A ) Not Detected LAB MICROBIOLOGY METHOD 09/03/2024 8:21 AM [facility] Mycoplasma pneumo by PCR Not Detected Not Detected LAB MICROBIOLOGY METHOD 09/03/2024 8:21 AM [facility] Chlamydia pneumoniae Not Detected Not Detected LAB MICROBIOLOGY METHOD 09/03/2024 8:21 AM [facility] SARS COV-2 Not Detected Not Detected LAB MICROBIOLOGY METHOD 09/03/2024 8:21 AM [facility] Swab Both anterior nares / Unknown Non-blood Collection / Unknown 09/03/2024 7:24 AM EST 09/03/2024 7:28 AM EST Narrative [facility] - 09/03/2024 8:21 AM EST Testing was performed using the [employer] the Planete Respiratory Pathogen PCR Assay. All results must [...] ERAL ORDERABLES Final Result Performing Organization Address [facility]/ZIP Co de Phone Number [facility] [address] [place] [address], * (ABNORMAL) POCT Glucose, blood (09/03/2024 7:15 AM EST) Glucose POCT 108(H) 70 - 100 mg/dL 09/03/2024 7:15 AM [facility] Blood Capillary blood specimen / Unknown 09/03/2024 7:15 AM EST 09/03/2024 7:16 AM EST Generic Provider Poct LAB POINT OF CARE TEST DOCKED DEVICE UNSOLICITED RESULTS Final Result Performing Organization Address [facility]/ZIP Co de Phone Number [facility] [address] [place] [address], [place] [phone] * (ABNORMAL) CBC auto differential (09/03/2024 7:12 AM EST) WBC 5.1 4.8 - 10.8 K/mcL LAB HEMETOLOGY METHOD 09/03/2024 7:36 AM [facility] RBC 4.20(L) 4.50 - 5.50 M/mcL LAB HEMETOLOGY METHOD 09/03/2024 7:36 AM [facility] Hemoglobin 11.8(L) 13.5 - 17.5 g/dL LAB HEMETOLOGY METHOD 09/03/2024 7:36 AM [facility] Hematocrit 36.0(L) 42.0 - 54.0 % LAB HEMETOLOGY METHOD 09/03/2024 7:36 AM [facility] MCV 86.7 79.0 - 98.0 FL LAB HEMETOLOGY METHOD 09/03/2024 7:36 AM [facility] MCH 28.4 27.0 - 32.0 pcg LAB HEMETOLOGY METHOD 09/03/2024 7:36 AM [facility] MCHC 32.8 32.0 - 37.0 g/dL LAB HEMETOLOGY METHOD 09/03/2024 7:36 AM [facility] RDW 14.7 11.0 - 15.0 % LAB HEMETOLOGY METHOD 09/03/2024 7:36 AM [facility] Platelets 180 130 - 400 K/mcL LAB HEMETOLOGY METHOD 09/03/2024 7:36 AM [facility] MPV 11.1(H) 7.0 - 11.0 FL LAB HEMETOLOGY METHOD 09/03/2024 7:36 AM [facility] NRBC 0.0 <1.0 % LAB HEMETOLOGY METHOD 09/03/2024 7:36 AM [facility] NRBC Absolute 0.00 <0.10 K/mcL LAB HEMETOLOGY METHOD 09/03/2024 7:36 AM [facility] Neutrophils Relative 43.0 % LAB HEMETOLOGY METHOD 09/03/2024 7:36 AM [facility] Lymphocytes Relative 37.4 % LAB HEMETOLOGY METHOD 09/03/2024 7:36 AM [facility] Monocytes Relative 9.3 % LAB HEMETOLOGY METHOD 09/03/2024 7:36 AM [facility] Eosinophils Relative 9.1 % LAB HEMETOLOGY METHOD 09/03/2024 7:36 AM EST [facility] Basophils Relative 0.6 % LAB HEMETOLOGY METHOD 09/03/2024 7:36 AM EST [facility] Immature Granulocytes Relative 0.6 % LAB HEMETOLOGY METHOD 09/03/2024 7:36 AM EST [facility] Neutrophils Absolute 2.18 1.50 - 7.00 K/mcL LAB HEMETOLOGY METHOD 09/03/2024 7:36 AM EST [facility] Lymphocytes Absolute 1.89 1.00 - 5.00 K/mcL LAB HEMETOLOGY METHOD 09/03/2024 7:36 AM EST [facility] Monocytes Absolute 0.47 0.20 - 1.00 K/mcL LAB HEMETOLOGY METHOD 09/03/2024 7:36 AM EST [facility] Eosinophils Absolute 0.46 0.00 - 0.50 K/mcL LAB HEMETOLOGY METHOD 09/03/2024 7:36 AM EST [facility] Basophils Absolute 0.03 0.00 - 0.20 K/mcL LAB HEMETOLOGY METHOD 09/03/2024 7:36 AM EST [facility] Immature Granulocytes Absolute 0.03 0.00 - 0.03 K/mcL LAB HEMETOLOGY METHOD 09/03/2024 7:36 AM [facility] Blood Venous blood specimen / Unknown Venipuncture / Unknown 09/03/2024 7:12 AM EST 09/03/2024 7:28 AM EST us Gene Carnes MD LAB BLOOD ORDERABLES Final Resu lt [facility]) [facility] [address] [place] [address], * B-type natriuretic peptide (09/03/2024 7:12 AM EST) BNP 80 <=100 pcg/mL LAB CHEMISTRY METHOD 09/03/2024 8:14 AM EST [facility] Blood Venous blood specimen / Unknown Venipuncture / Unknown 09/03/2024 7:12 AM EST 09/03/2024 7:28 AM EST us Gene Carnes MD LAB BLOOD ORDERABLES Final Resu lt Performing Organization Address City/[facility]/ZIP Co de Phone Number [facility] [address] [place] [address], [place] [phone] * Magnesium (09/03/2024 7:12 AM EST) Pathologist [facility] Magnesium 2.1 1.9 - 2.6 mg/dL LAB CHEMISTRY METHOD 09/03/2024 7:58 AM EST [facility] Blood Venous blood specimen / Unknown Venipuncture / Unknown 09/03/2024 7:12 AM EST 09/03/2024 7:28 AM EST us Gene Carnes MD LAB BLOOD ORDERABLES Final Resu lt Performing Organization Address [facility] de Phone Number [facility] [address] [place] [address], [place] [phone] * Lipase (09/03/2024 7:12 AM EST) Pathologist [facility] Lipase 19 13 - 75 unit/L LAB CHEMISTRY METHOD 09/03/2024 7:58 AM EST [facility] Blood Venous blood specimen / Unknown Venipuncture / Unknown 09/03/2024 7:12 AM EST 09/03/2024 7:28 AM EST us Gene Carnes MD LAB BLOOD ORDERABLES Final Resu lt Performing Organization Address City/[facility]/ZIP Co de Phone Number [facility] [address] [place] [address], [place] [phone] * (ABNORMAL) Comprehensive metabolic panel (09/03/2024 7:12 AM EST) Sodium 139 133 - 145 mmol/L LAB CHEMISTRY METHOD 09/03/2024 8:23 AM [facility] Potassium 4.1 3.5 - 5.5 mmol/L LAB CHEMISTRY METHOD 09/03/2024 8:23 AM [facility] Chloride 103 96 - 110 mmol/L LAB CHEMISTRY METHOD 09/03/2024 8:23 AM [facility] CO2 31 21 - 32 mmol/L LAB CHEMISTRY METHOD 09/03/2024 8:23 AM [facility] Anion Gap 5 3 - 11 LAB CHEMISTRY METHOD 09/03/2024 8:23 AM [facility] Glucose 115(H) 70 - 100 mg/dL LAB CHEMISTRY METHOD 09/03/2024 8:23 AM [facility] BUN 33(H) 5 - 25 mg/dL LAB CHEMISTRY METHOD 09/03/2024 8:23 AM [facility] Creatinine 13.60(HH) 0.70 - 1.30 mg/dL LAB CHEMISTRY METHOD 09/03/2024 8:23 AM [facility] eGFR 4(L) >=60 mL/min/1 .73m2 LAB CHEMISTRY METHOD 09/03/2024 8:23 AM [facility] Comment:Calculation based on the??Chronic Kidney Disease Epidemiology Collaboration (CKD-EPI) equation refit??without adjustment for race. BUN/Creatinine Ratio 2.4 LAB CHEMISTRY METHOD 09/03/2024 8:23 AM [facility] Calcium 9.0 8.5 - 10.5 mg/dL LAB CHEMISTRY METHOD 09/03/2024 8:23 AM [facility] AST (SGOT) 27 10 - 42 unit/L LAB CHEMISTRY METHOD 09/03/2024 8:23 AM [facility] ALT (SGPT) 28 10 - 60 unit/L LAB CHEMISTRY METHOD 09/03/2024 8:23 AM EST [facility] Alkaline Phosphatase 123(H) 42 - 121 unit/L LAB CHEMISTRY METHOD 09/03/2024 8:23 AM EST [facility] Total Protein 7.0 6.0 - 8.0 g/dL LAB CHEMISTRY METHOD 09/03/2024 8:23 AM EST [facility] Albumin 3.7 3.2 - 5.0 g/dL LAB CHEMISTRY METHOD 09/03/2024 8:23 AM EST [facility] Total Bilirubin 0.4 0.0 - 1.4 mg/dL LAB CHEMISTRY METHOD 09/03/2024 8:23 AM EST [facility] Blood Venous blood specimen / Unknown Venipuncture / Unknown 09/03/2024 7:12 AM EST 09/03/2024 7:28 AM EST Gene Carnes MD LAB BLOOD ORDERABLES Final Resu lt [facility] [address] [place] [address], * ECG 12 lead (09/03/2024 7:06 AM EST) Ventricular Rate ECG 62 BPM GEMUSE Atrial Rate 62 BPM GEMUSE P-R Interval 196 ms GEMUSE QRS Duration 104 ms GEMUSE Q-T Interval 436 ms GEMUSE QTc 442 ms GEMUSE P Wave [place] 62 degrees GEMUSE R [place] -7 degrees GEMUSE T [place] 9 degrees GEMUSE ECG Interpretation Normal sinus [...] Documents on File Type Date Recorded Patient Service Plumber Expl anation Health Care Decision (hx) 10/12/2021 AD NAZARIO DIRECTIVE Health Care Decision (hx) 10/08/2021 AD NAZARIO DIRECTIVE Health Care Decision (hx) 10/08/2021 AD NAZARIO DIRECTIVE Health Care Decision (hx) 10/08/2021 AD NAZARIO DIRECTIVE Health Care Decision (hx) 10/08/2021 AD NAZARIO DIRECTIVE Health Care Decision (hx) 10/08/2021 AD NAZARIO DIRECTIVE Health Care Decision (hx) 10/08/2021 AD NAZARIO DIRECTIVE Care Teams Under Water Assistant Relationship Specialty Start Date End Date Jessica Meraz PA NPI: [id number] [place] [id number] PCP - General 05/16/24
--- OUTSIDE RECORDS SUMMARY | 2024-11-16 12:32 | XMS_ITS | Encounter Summary ---
Author Organization [facility].. Address [address] [address] Phone Care Team Providers Care Field Artillery Senior Sergeant Name Role Phone Jun Woo MD Primary Care Provider [phone] Encounter Details Date Type Department Care Team (Late st Contact Info) Description 11/14/2024 Treatment [facility]. [address] [address] Jun Lynch MD [address] [address] End stage renal disease; Dependence [...] care for end stage renal disease. Attending Radio Operator Ground: JUN LYNCH Dialysis Location: [facility] Schedule: Shift: 1 OVERVIEW Patient is [...] stable Signed by: JUN LYNCH MD on 11/14/2024 at 09:36:36 PM Transcribed by: JUN LYNCH MD on 11/14/2024 at 09:36:36 PM documented in this encounter Plan of Treatment Not on file documented as of this encounter Visit Diagnoses Diagnosis End stage renal disease Dependence on renal dialysis documented in this encounter Care Teams Field Artillery Senior Sergeant Relationship Specialty [place] [address] [place] [id number] PCP - General Internal Medicine 06/03/21 documented as of this encounter
== END 2024-11-16 12:47 | disposition home or self-care (01) ==
PROVIDERS: Visit Provider Physician Assistant
DX: M25.562 Pain in left knee (principal); V49.40XA Driver injured in collision with unspecified motor vehicles in traffic accident, initial encounter; Z04.3 Encounter for examination and observation following other accident
CPT/HCPCS: 99203; G2211

== ENCOUNTER → 2024-11-16 11:03 | Outpatient (BNV) | payer OTHER, MEDICAID, SELFPAY | PROVIDERS: Visit Provider Radiology Diagnostic Radiology | DX: M25.562 Pain in left knee (principal); M17.12 Unilateral primary osteoarthritis, left knee | CPT/HCPCS: 73562 ==

== ENCOUNTER 2025-01-10 07:51 | Outpatient (RCR) | payer OTHER, MEDICARE, MEDICAID, SELFPAY ==
[2024-12-11 09:06] VITALS: BP 130/70; PULSE 89; O2SAT 98
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
== END 2025-04-22 14:38 | disposition home or self-care (01) ==
LOC: HO.PTS 07:51
PROVIDERS: Visit Provider Physician Assistant
DX: M25.562 Pain in left knee (principal)
CPT/HCPCS: 97110; 97140; 97162; 97530; 97535

== ENCOUNTER 2025-01-30 15:08 | Outpatient (AMB) | payer OTHER, SELFPAY ==
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
[2025-01-30 15:24] VITALS: BMI 27.8
--- OUTSIDE RECORDS SUMMARY | 2025-01-30 17:28 | XMS_ITS | Clinical Summary ---
Author Organization [facility] Address [address] [place] [address] Care Team Providers Care Fuel Cell Systems Engineer Name Role Phone Jessica Meraz PA-C Primary Care Provider Source Comments PLEASE NOTE, if this patient [...] disease with dialysis modality undecided, stage 5 ([facility]) 09/28/2023 Class 1 obesity 08/03/2022 SARS-CoV-2 positive 08/21/2021 Hypertensive urgency 2021 Nicotine dependence 2021 Generalized edema 07/13/2021 Persistent proteinuria 06/22/2021 Hypercholesterolemia 05/26/2021 Type 1 diabetes mellitus wit h stage 4 chronic kidney disease ([facility]) 05/09/2021 Stage 4 chronic kidney disease ([facility]) 021 Essential hypertension 05/09/2021 Tobacco abuse 05/09/2021 Acute kidney injury ([facility] V24) 04/03/2021 Immunizations Immunization Administration Dates Next Due Flu, [...] 81 09/21/2024 11:31 AM EST Temperature 36.8 C (98.3 F) 09/21/2024 11:31 AM EST Respiratory Rate 20 09/21/2024 11:31 AM EST Oxygen Saturation 98% 07/18/2024 1:58 PM EST Inhaled Oxygen Concentration - - Weight 92.5 kg (204 lb) 09/21/2024 11:31 AM EST Height 177.8 cm (5' 10 ) 09/21/2024 11:31 AM EST Body Mass Index 29.27 09/21/2024 11:31 AM EST Plan of Treatment Health Maintenance Due Date Last Done Comments Dental Examination 1990 Retinopathy Screening 2003 Ndp-DSGMT-16 ( season) 2024 024 Medicare Annual Wellness Visit 09/28/2024 09/28/2023 Diabetes HbA1c 11/20/2024 08/22/2024, 03/2025, 05/17/2024, Additional history exists Imm-Influenza (Season Ended) 2025, 05/09/2021, 06/09/2011 Anxiety Screening 05/16/2025 05/16/2024 Urine Albumin Creatinine Rat io Screening 05/17/2025 05/17/2024, 06/22/2021, 05/22/2021 Diabetes Foot Exam 05/29/2025 05/29/2024, 0 11/23/2023, 08/20/2021 Tobacco Cessation Counseling (#1) 05/30/2025 05/30/2024, 05/22/2021, 05/09/2021 Tobacco Screening 05/30/2025 05/30/2024, , 05/09/2021 Lipid Screening 08/22/2025 08/22/2024, 100 10/2023, 02/01/2024, Additional history exists Serum Creatinine 12/17/2025 12/17/2024, 12/2024, 09/03/2024, Additional history exists Imm-DTaP/Tdap/Td (2 - Td or Tdap) 05/03/2033 023 Imm-Pneumococcal Completed 05/03/2023 HIV Screening Completed 05/04/2023, 05/22/2021 Hepatitis C Screening Completed 05/04/2023 , 06/22/2021, 05/22/2021 Imm-Hepatitis B Completed 09/28/2023, 05/03/2023 Alcohol and Drug Screen Completed 09/21/19, 05/16/2024, 09/27/2023, Additional history exists Depression Annual Screen Completed 09/21/2024 Procedures Procedure Name Priority Date/Time Associated Diagnosis Comments IMAGING SCANNED DOCUMENT 12/27/2024 3:00 AM EDT COMPREHENSIVE METABOLIC PANEL Routine 05/17/2024 11:51 AM EDT Type 1 diabetes mellitus with stage 4 chronic kidney disease (HCC-CMS) Essential hypertension LIPID PANEL Routine 05/17/2024 11:51 AM EDT Type 1 diabetes mellitus with stage 4 chronic kidney disease ([facility]) Essential hypertension MICROALBUMIN/CREATINI NE RATIO, URINE, RANDOM Routine 05/17/2024 11:51 AM EDT Type 1 diabetes mellitus with stage 4 chronic kidney disease ([facility]-CMS) HEMOGLOBIN GLYCOSYLATED A1C Routine 05/17/2024 11:51 AM EDT Type 1 diabetes mellitus with stage 4 chronic kidney disease (HCC-CMS) 3 COMP FOOT EXAM COMPLETED Routine 11/23/2023 10:30 AM EDT HIV 1/2 AG & AB W/RFLX (4TH GEN) Routine 05/04/2023 10:29 AM EDT Routine screening for STI (sexually transmitted infection) ACUTE HEPATITIS PANEL W/RFLX Routine 05/04/2023 10:29 AM EDT Routine screening for STI (sexually transmitted infection) from Last 3 Months or Most Recently Relevant to Health Maintenance Results * IMAGING SCANNED DOCUMENT (12/27/2024 3:00 AM EDT) 12/27/2024 3:00 AM EDT us Jessica Villaelham [facility] SCAN IMAGING Final Result * (ABNORMAL) MICROALBUMIN/CREATININE RATIO, URINE, RANDOM (05/17/2024 11:51 AM EDT) CREATININE, RANDOM URINE 126 20 - 320 mg/dL [facility] MICROALBUMIN 34.3 mg/dL [facility] Comment: Verified by repeat analysis. Reference Range Not established MICROALBUMIN/CREA TININE RATIO, RANDOM URINE 272(H) <30 mg/g creat [facility] Comment: The ADA defines abnormalities in albumin excretion as follows: Albuminuria Category Result (mg/g creatinine) Normal to Mildly increased <30 Moderately increased 30-299 Severely increased > OR = 300 The ADA recommends that at least two of three specimens collected within a 3-6 month period be abnormal before considering a patient to be within a diagnostic category. 05/17/2024 11:5 1 AM EDT 05/17/2024 11:51 AM EDT Narrative [facility] - 05/18/2024 6:00 PM EDT FASTING:YES us Jessica Meraz [facility] LAB URINE AMBULATORY Final R esult [facility] [address] [place] [id number], [facility] [address] [place] [phone] * (ABNORMAL) HEMOGLOBIN GLYCOSYLATED A1C (05/17/2024 11:51 AM EDT) HEMOGLOBIN A1C 10.5(H) <5.7 % of total Hgb [facility] Comment: For someone without known diabetes, a hemoglobin A1c value of 6.5% or greater indicates that they may have diabetes and this should be confirmed with a follow-up test. For someone with known diabetes, a value <7% indicates that their diabetes is well controlled and a value greater than or equal to 7% indicates suboptimal control. A1c targets should be individualized based on duration of diabetes, age, comorbid conditions, and other considerations. Currently, no consensus exists regarding use of hemoglobin A1c for diagnosis of diabetes for children. Blood Blood / Unknown 05/17/2024 1 1:51 AM EDT 05/17/2024 11:51 AM EDT Narrative [facility] - 05/18/2024 6:00 PM EDT FASTING:YES Jessica Meraz PA-C LAB - BLOOD DRAW Edited Resu lt - Final [facility] [address] [address], [facility] [employer] [address] [address] * LIPID PANEL (05/17/2024 11:51 AM EDT) [facility] Signature CHOLESTEROL, TOTAL 159 <200 mg/dL [facility] [facility] HDL CHOLESTEROL 53 > OR = 40 mg/dL [facility] TRIGLYCERIDES 97 <150 mg/dL [facility] LDL-CHOLESTEROL 87 99 mg/dL (calc) [facility] Comment: Reference range: <100 Desirable range <100 mg/dL for primary prevention; <70 mg/dL for patients with CHD or diabetic patients with > or = 2 CHD risk factors. LDL-C is now calculated using the Harpal-Marge calculation, which is a validated novel method providing better accuracy than the Friedewald equation in the estimation of LDL-C. Harpal CARREON et al. ARAM. 2013;310(19): 0387-0392 (http://education.Hudl/faq/NUH491) CHOL/HDLC RATIO 3.0 <5.0 (calc) [facility] NON-HDL CHOLESTEROL 106 <130 mg/dL (calc) [facility] Comment: For patients with diabetes plus 1 major ASCVD risk factor, treating to a non-HDL-C goal of <100 mg/dL (LDL-C of <70 mg/dL) is considered a therapeutic option. Blood Blood / Unknown 05/17/2024 1 1:51 AM EDT 05/17/2024 11:51 AM EDT Narrative [facility] - 05/18/2024 6:00 PM EDT FASTING:YES Jessica Meraz PA-C LAB - BLOOD DRAW Final Resul t [facility] [address] [address], [facility] [employer] [facility] [address] [place] [address] * (ABNORMAL) COMPREHENSIVE METABOLIC PANEL (05/17/2024 11:51 AM EDT) GLUCOSE 266(H) 65 - 99 mg/dL [facility] Comment: Fasting reference interval For someone without known diabetes, a glucose value >125 mg/dL indicates that they may have diabetes and this should be confirmed with a follow-up test. UREA NITROGEN (BUN) 40(H) 7 - 25 mg/dL [facility] CREATININE (blood) 9.75(H) 0.60 - 1.26 mg/dL [facility] Comment: Verified by repeat analysis. EGFR 7(L) > OR = 60 mL/min/1. 73m2 [facility] BUN/CREATININE RATIO 4(L) 6 - 22 (calc) [facility] SODIUM 136 135 - 146 mmol/L [facility] [facility] POTASSIUM 4.3 3.5 - 5.3 mmol/L [facility] [facility] CHLORIDE 98 98 - 110 mmol/L [facility] CARBON DIOXIDE 27 20 - 32 mmol/L [facility] [facility] [employer] [facility] CALCIUM 9.5 8.6 - 10.3 mg/dL [facility] PROTEIN, TOTAL 7.1 6.1 - 8.1 g/dL [facility] ALBUMIN 4.3 3.6 - 5.1 g/dL [facility] GLOBULIN 2.8 1.9 - 3.7 g/dL (calc) [facility] ALBUMIN/GLOBULI N RATIO 1.5 1.0 - 2.5 (calc) [facility] BILIRUBIN, TOTAL 0.5 0.2 - 1.2 mg/dL [facility] [employer] ALKALINE PHOSPHATASE 86 36 - 130 U/L [facility] [employer] AST 18 10 - 40 U/L [facility] [employer] ALT 13 9 - 46 U/L [facility] [employer] Blood Blood / Unknown 05/17/2024 1 1:51 AM EDT 05/17/2024 11:51 AM EDT Narrative [facility] [facility] - 05/18/2024 6:00 PM EDT FASTING:YES Jessica Meraz PA-C LAB - BLOOD DRAW Edited Resu lt - Final [facility] [address] [address], [facility] [address] [address] * 3 COMP FOOT EXAM COMPLETED (11/23/2023 10:30 AM EDT) Provider [facility] EVALUATION AND MGMT Final Result * HIV 1/2 AG & AB W/RFLX (4TH GEN) (05/04/2023 10:29 AM EDT) HIV AG/AB, 4TH GEN NON-REAC TIVE NON-REAC TIVE [facility] Comment: HIV-1 antigen and HIV-1/HIV-2 antibodies were not detected. There is no laboratory evidence of HIV infection. PLEASE NOTE: This information has been disclosed to you from records whose confidentiality may be protected by state law. If your state requires such protection, then the state law prohibits you from making any further disclosure of the information without the specific written consent of the person to whom it pertains, or as otherwise permitted by law. A general authorization for the release of medical or other information is NOT sufficient for this purpose. For additional information please refer to http://education.Roovyn.Shelfie/faq/ICN219 (This link is being provided for informational/ educational purposes only.) The performance of this assay has not been clinically validated in patients less than 2 years old. Blood Blood / Unknown 05/04/2023 1 0:29 AM EDT 05/04/2023 10:30 AM EDT Narrative [facility] - 05/05/2023 11:49 PM EDT FASTING:YES Nancy CALDERON LAB - BLOOD DRAW Final Result [facility] [address] [address], [facility] [employer] [address] [address] * ACUTE HEPATITIS PANEL W/RFLX (05/04/2023 10:29 AM EDT) HEPATITIS A IGM ANTIBODY NON-REACT PADMINI NON-REACT PADMINI [facility] COMMENT [facility] [facility] HEPATITIS B SURFACE ANTIGEN NON-REACT PADMINI NON-REACT PADMINI [employer] [facility] COMMENT [employer] [facility] HEPATITIS B CORE IGM ANTIBODY NON-REACT PADMINI NON-REACT PADMINI [employer] [facility] COMMENT [employer] [facility] HEPATITIS C ANTIBODY NON-REACT PADMINI NON-REACT PADMINI [facility] [facility] Comment: HCV antibody was non-reactive. There is no laboratory evidence of HCV infection. In most cases, no further action is required. However, if recent HCV exposure is suspected, a test for HCV RNA (test code 33962) is suggested. For additional information please refer to http://FreeBrie/faq/ELE74v9 (This link is being provided for informational/ educational purposes only.) Blood Blood / Unknown 05/04/2023 1 0:29 AM EDT 05/04/2023 10:30 AM EDT Narrative [facility] - 05/05/2023 11:49 PM EDT FASTING:YES For additional information, please refer to http://Oppex.Kopi/faq/TFY730 (This link is being provided for informational/ educational purposes only.) For additional information, please refer to http://Oppex.Roovyn.Shelfie/faq/VOL741 (This link is being provided for informational/ educational purposes only.) For additional information, please refer to http://Oppex.Kopi/faq/GXZ587 (This link is being provided for informational/ educational purposes only.) Nancy CALDERON LAB - BLOOD DRAW Final Result [facility] [address] [address], [facility] [facility] [employer] [address] [address] from Last 3 Months or Most Recently Relevant to Health Maintenance Insurance [place] Care Teams Fuel Cell Systems Engineer Relationship Specialty Start Date End Date Jessica Meraz PA-C [address] [place] [address] PCP - General [facility]INE[facility] 02/09/23
== END 2025-01-30 15:29 | disposition home or self-care (01) ==
LOC: HO.HOS 15:09
PROVIDERS: Visit Provider Physician Assistant
DX: M25.562 Pain in left knee (principal)
CPT/HCPCS: 99213; G2211

== ENCOUNTER → 2025-01-30 15:08 | Outpatient (BNVA) | payer OTHER, SELFPAY | PROVIDERS: Visit Provider Physician Assistant ==

== ENCOUNTER 2025-02-12 20:06 | Outpatient (REF) | payer OTHER, MEDICARE, MEDICAID, SELFPAY ==
--- NOTE | ~2025-02-12 | MR_ITS ---
EXAMINATION: MRI LEFT KNEE WITHOUT CONTRAST HISTORY: M17.12 - Unilateral primary osteoarthritis, left knee COMPARISON: Correlation is made to plain films of the left knee dated 11/16/2024. TECHNIQUE: Coronal T1 and fat-suppressed proton density, sagittal proton density and fat-suppressed proton density, and axial fat suppressed T2 weighted MR images of the left knee were obtained. FINDINGS: Bone marrow: There is no evidence of a bone contusion. Joint effusion: There is a small joint effusion. Nelson's cyst: There is no Nelson's cyst. Articular cartilage: There is moderate osteoarthritis of the lateral compartment with cartilage loss and subchondral marrow changes. Muscles/soft tissues: The visualized muscles demonstrate normal signal intensity. Anterior cruciate ligament: Intact Posterior cruciate ligament: Intact Medial collateral ligament: Intact Lateral collateral ligament: Intact Medial meniscus: Intact Lateral meniscus: The posterior aspect of the meniscal body and the lateral aspect of the posterior horn are diminutive in size. The anterior horn and meniscal root are intact. There is a 10 mm meniscal fragment in the lateral aspect of the suprapatellar recess (series 8 image 10, series 12 image 9, and series 10 image 25). Flexor mechanism: The popliteus, gastrocnemius, and hamstring tendons are intact. Quadriceps tendon: Intact Patellar tendon: Intact Patellar retinacula: Intact MR/MR knee LT wo con IMPRESSION: 1. Moderate osteoarthritis of the lateral compartment. 2. Tear of the posterior body/posterior horn of the lateral meniscus with a displaced meniscal fragment in the lateral aspect of the suprapatellar recess. Electronically signed by: Jai Bergman MD 02/13/2025 07:43 AM EDT
== END 2025-02-12 20:07 | disposition home or self-care (01) ==
LOC: HO.MRI 20:06
PROVIDERS: PCP Physician Assistant Medical; Visit Provider Physician Assistant
DX: M17.12 Unilateral primary osteoarthritis, left knee (principal)
CPT/HCPCS: 73721

== ENCOUNTER → 2025-02-12 20:13 | Outpatient (BNV) | payer OTHER, MEDICARE, MEDICAID, SELFPAY | PROVIDERS: PCP Physician Assistant Medical; Visit Provider Radiology Diagnostic Radiology | DX: M17.12 Unilateral primary osteoarthritis, left knee (principal) | CPT/HCPCS: 73721 ==

== ENCOUNTER 2025-03-18 12:53 | Outpatient (AMB) | payer OTHER, MEDICARE, MEDICAID, SELFPAY ==
[2025-03-18 13:12] VITALS: BMI 27.8
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
--- OUTSIDE RECORDS SUMMARY | 2025-03-18 13:13 | XMS_ITS | Encounter Summary ---
Author Organization [facility] [address] [facility] [address] [place] [address] Phone Care Team Providers Care Beef Cattle Grazier Name Role Phone Jordan Woo MD Primary Care Provider [phone] Encounter Details Date Type Department Care Team (Late st Contact Info) Description 12/14/2021 Office Communication [facility] [address] [place] [address] Ammy Alejandro [address] [facility] [address] [place] [address] Social History Tobacco Use Types Packs/Day Years [...] on filedocumented in this encounter Care Teams Beef Cattle Grazier Relationship Specialty Start Date End Date Jordan Woo MD [address] [place] [address] PCP - General Internal Medicine 06/03/21 documented as of this encounter
--- OUTSIDE RECORDS SUMMARY | 2025-03-18 13:13 | XMS_ITS | Clinical Summary ---
Author Organization 175 [facility] Address [address] [place] [address] Phone Care Team Providers Care Lab Tech Name Role Phone Jessica Meraz Primary Care Provider [phone] Allergies No known active allergies Medications polyethylene [...] kidney disease) 12/11/2020 Overview (07/04/2024): Never saw cementer hand, no records from PCP OF 12/11/20 Encounters Date Type Department Care Team Description 12/27/2024 2:15 PM EDT Office Visit Orthopedic Surgery - [place] [address] [phone] Elpidio Villegas, DPM Follow-up exam (Primary Dx); Hallux rigidus of left foot; Acquired hallux valgus of left foot; Hallux rigidus of right foot; Acquired hallux valgus of right foot; Acquired hammer toe of right foot; Contracture of joint of right foot; Contracture of joint of left foot; Metatarsalgia of left foot; Metatarsalgia of right foot; Hammer toe of left foot; Dermatophytosis of nail; Pain in toe of right foot; Pain in toe of left foot; Corns and callosities; Type 1 diabetes mellitus with mononeuropathy ([facility] V24, [facility] V28) 12/17/2024 4:03 PM EDT - 12/17/2024 6:22 PM EDT Emergency [facility] Emergency [address] [place] [phone] Folliculitis (Primary Dx) Discharge Disposition: Home or Self Care from Last 3 Months Medical History Medical History Date Comments Urinary tract infection DX:Urina ry tract infection Microscopic hematuria DX:Microsc opic hematuria Diabetes mellitus ([facility] V 24, [facility] V28) DX:Diabetes mellitus (HCC); COMMENT: Type 1, followed by phone banker at [facility] CKD (chronic kidney disease) DX: CKD (chronic kidney disease); COMMENT: Never saw cementer hand, no records from PCP OF 12/11/20 Social [...] Sign Reading Time Taken Comments Blood Pressure 113/96 12/17/2024 1:31 PM EDT Pulse 84 12/17/2024 1:31 PM EDT Temperature 36.8 C (98.2 F) 12/17/2024 1:31 PM EDT Respiratory Rate 18 12/17/2024 1:31 PM EDT Oxygen Saturation 99% 12/17/2024 1:31 PM EDT Inhaled Oxygen Concentration - - Weight 95.3 kg (210 lb) 12/27/2024 2:10 PM EDT Height 182.9 cm (6' 0.01 ) 12/27/2024 2:10 PM ED T Body Mass Index 28.47 12/27/2024 2:10 PM EDT Plan of Treatment Upcoming Encounters Date Type Department Care Team (Late st Contact Info) Description 04/04/2025 10:30 AM EDT Office Visit Orthopedic Surgery - [place] [address] [phone] Elpidio Villegas DPM [address] [phone] Health Maintenance Due Date Last Done Comments Diabetes: Annual Foot Exam 2000 Diabetes: Annual Retina Eye Exam 2000 HIV Screening 07/13/2022 Medicare Annual Wellness Visit 07/13/2022 Social Influencers of Health Screening 07/13/2022 COVID-19 Vaccine (2 - Moderna risk series) 10/26/2023 09/28/2023 Depression Screening 08/15/2024 Influenza Vaccine (#1) 2025 , 05/09/2021, 06/09/2011 Diabetes: Blood Sugar Control Test (HGBA1C) 05/16/2025 11/14/2024, 11/14/2024, 08/22/2024, Additional history exists Diabetes: Annual Urine Albumin-Creatinine Ratio (uACR) 05/17/2025 05/17/2024, 05/22/2021, 12/11/2020 Diabetes: Annual GFR (Glomerular Filtration Rate) 12/17/2025 12/17/2024, 09/03/2024, 05/17/2024 Hypertension/CHF/CAD Annual BMP Blood Test 12/17/2025 12/17/2024, 09/03/2024, 05/17/2024 Cholesterol Screening (Lipid Panel) 11/14/2029 11/14/2024, 08/22/2024, 05/17/2024, Additional history exists DTaP,Tdap,and Td Vaccines (2 - Td or Tdap) 05/03/2033 05/03/2023 Pneumococcal Vaccine: Pediatrics (0 to 5 Years) and At-Risk Patients (6 to 49 Years) Completed 05/03/2023, 02/21/2015 Hepatitis C Screening [...] age to complete this topic Meningococcal B Vaccine Aged Out No l onger eligible based on patient's age to complete this topic RSV Immunization Patients Under 20 months Aged Out No longer eligible based on patient's age to complete this topic Varicella Vaccines Aged Out No longer eligible based on patient's age to complete this topic Procedures Procedure Name Priority Date/Time Associated Diagnosis Comments XR FOOT 3+ VIEWS BILAT Routine 2:24 PM EDT Follow-up exam CULTURE WOUND WITH GRAM STAIN STAT 12/17/2024 5:44 PM EDT CBC WITH AUTO DIFFERENTIAL STAT 12/17/2024 1:50 PM EDT COMPREHENSIVE METABOLIC PANEL STAT 12/17/2024 1:50 PM EDT CBC AND DIFFERENTIAL STAT 12/17/2024 1:50 PM EDT HM URINE ALBUMIN CREATININE RATIO Routine 12/11/2020 from Last 3 Months or Most Recently Relevant to Health Maintenance Results * XR Foot 3+ Views bilat (12/27/2024 2:24 PM EDT) Anatomical Region Laterality Modality Lower Extremities, Foot Bilateral Computed Radiography Narrative 12/27/2024 6:50 PM EDT Right foot 3 views No fracture. No radiopaque foreign joint spaces diffuse arthritis forefoot noted with advanced joint contracture deformities metatarsal phalange joint hammertoe contracture severe Foot position Pes Cavus with Talus navicular decreased kites angle increased calcaneal inclination posterior displaced symes line talus navicular joint to calcaneal cuboid joint Left foot 3 views No fracture. No radiopaque foreign joint spaces diffuse arthritis forefoot noted with advanced joint contracture deformities metatarsal phalange joint hammertoe contracture severe Foot position Pes Cavus with Talus navicular decreased kites angle increased calcaneal inclination posterior displaced symes line talus navicular joint to calcaneal cuboid joint us Elpidio Villegas DPKristina IMG XR PROCEDURES Final R esult * (ABNORMAL) Culture wound with gram stain (12/17/2024 5:44 PM EDT) Culture, Wound Methicillin-Sensiti ve Staphylococcus aureus(A) KIKI 12/20/2024 9:40 AM EDT [facility] Comment: Negative for PBP2a - indicates susceptible to Oxacillin The organism value for this result has been updated. These results have been appended to the previously preliminary verified report. Edited result: Previously reported as Staphylococcus aureus on 12/18/2024 at 1411 EDT. Gram Stain Result Rare Polymorphonuclear leukocytes(A) 12/20/2024 9:40 AM EDT [facility] Gram Stain Result No epithelial cells seen(A) 12/20/2024 9:40 AM EDT [facility] Gram Stain Result Rare Gram positive cocci(A) 12/20/2024 9:40 AM EDT [facility] Drainage Head structure / Unknown 12/17/2024 5:44 PM EDT 12/17/2024 5:52 PM EDT Narrative [facility] - 12/20/2024 9:40 AM EDT Mixed normal skin anand present Organism Antibiotic Method Susceptibility Methicillin-Sensitive Staphylococcus aureus Benzylpenicillin KIKI >=0.5 ug/ml: Resistant Methicillin-Sensitive Staphylococcus aureus Oxacillin KIKI 0.5 ug/ml: Susceptible Methicillin-Sensitive Staphylococcus aureus Gentamicin KIKI <=0.5 ug/ml: Susceptible Methicillin-Sensitive Staphylococcus aureus Ciprofloxacin KIKI <=0.5 ug/ml: Susceptible Methicillin-Sensitive Staphylococcus aureus Levofloxacin KIKI 0.25 ug/ml: Susceptible Methicillin-Sensitive Staphylococcus aureus Moxifloxacin KIKI <=0.25 ug/ml: Susceptible Methicillin-Sensitive Staphylococcus aureus Erythromycin KIKI <=0.25 ug/ml: Susceptible Methicillin-Sensitive Staphylococcus aureus Clindamycin KIKI <=0.25 ug/ml: Susceptible Methicillin-Sensitive Staphylococcus aureus Quinupristin/Dalfopristin KIKI 0.5 ug/ml: Susceptible Methicillin-Sensitive Staphylococcus aureus Linezolid KIKI 2 ug/ml: Susceptible Methicillin-Sensitive Staphylococcus aureus Vancomycin KIKI 1 ug/ml: Susceptible Methicillin-Sensitive Staphylococcus aureus Tetracycline KIKI <=1 ug/ml: Susceptible Methicillin-Sensitive Staphylococcus aureus Rifampin KIKI <=0.5 ug/ml: Susceptible Methicillin-Sensitive Staphylococcus aureus Trimethoprim/Sulfamethoxazo le KIKI <=10 ug/ml: Susceptible us Linnea CALDERON LAB MICROBIOLOGY - GEN ERAL ORDERABLES Final Result [facility] [address] [place] [address], * (ABNORMAL) CBC auto differential (12/17/2024 1:50 PM EDT) WBC 7.1 4.8 - 10.8 K/mcL LAB HEMETOLOGY METHOD 12/17/2024 2:50 PM EDT [facility] RBC 3.60(L) 4.50 - 5.50 M/mcL LAB HEMETOLOGY METHOD 12/17/2024 2:50 PM EDT [facility] Hemoglobin 11.1(L) 13.5 - 17.5 g/dL LAB HEMETOLOGY METHOD 12/17/2024 2:50 PM EDT [facility] Hematocrit 34.1(L) 42.0 - 54.0 % LAB HEMETOLOGY METHOD 12/17/2024 2:50 PM EDT [facility] MCV 94.7 79.0 - 98.0 FL LAB HEMETOLOGY METHOD 12/17/2024 2:50 PM EDT [facility] MCH 30.8 27.0 - 32.0 pcg LAB HEMETOLOGY METHOD 12/17/2024 2:50 PM EDT [facility] MCHC 32.6 32.0 - 37.0 g/dL LAB HEMETOLOGY METHOD 12/17/2024 2:50 PM EDT [facility] RDW 14.7 11.0 - 15.0 % LAB HEMETOLOGY METHOD 12/17/2024 2:50 PM EDT [facility] Platelets 243 130 - 400 K/mcL LAB HEMETOLOGY METHOD 12/17/2024 2:50 PM EDT [facility] MPV 10.3 7.0 - 11.0 FL LAB HEMETOLOGY METHOD 12/17/2024 2:50 PM EDT [facility] NRBC 0.0 <1.0 % LAB HEMETOLOGY METHOD 12/17/2024 2:50 PM EDT [facility] NRBC Absolute 0.00 <0.10 K/mcL LAB HEMETOLOGY METHOD 12/17[facility]2024 2:[facility] Neutrophils Relative 58.3 % LAB HEMETOLOGY METHOD 12/17/2024 2:50 PM T [facility] Lymphocytes Relative 24.4 % LAB HEMETOLOGY METHOD 12/17/2024 2:50 PM T [facility] Monocytes Relative 8.3 % LAB HEMETOLOGY METHOD 12/17/2024 2:50 PM [facility] Eosinophils Relative 8.0 % LAB HEMETOLOGY METHOD 12/17/2024 2:50 PM [facility] Basophils Relative 0.7 % LAB HEMETOLOGY METHOD 12/17/2024 2:50 PM [facility] Immature Granulocytes Relative 0.3 % LAB HEMETOLOGY METHOD 12/17/2024 2:50 PM [facility] Neutrophils Absolute 4.14 1.50 - 7.00 K/mcL LAB HEMETOLOGY METHOD 12/17/2024 2:50 PM EDT [facility] Lymphocytes Absolute 1.73 1.00 - 5.00 K/mcL LAB HEMETOLOGY METHOD 12/17/2024 2:50 PM EDT [facility] Monocytes Absolute 0.59 0.20 - 1.00 K/mcL LAB HEMETOLOGY METHOD 12/17/2024 2:50 PM [facility] Eosinophils Absolute 0.57(H) 0.00 - 0.50 K/mcL LAB HEMETOLOGY METHOD 12/17/2024 2:50 PM EDT [facility] Basophils Absolute 0.05 0.00 - 0.20 K/mcL LAB HEMETOLOGY METHOD 12/17/2024 2:50 PM EDT [facility] Immature Granulocytes Absolute 0.02 0.00 - 0.03 K/[facility] LAB HEMETOLOGY METHOD 12/17/2024 2:50 PM EDT [facility] Blood Venous blood specimen / Unknown Venipuncture / Unknown 12/17/2024 1:50 PM EDT 12/17/2024 2:27 PM EDT us Chencho Abbott MD LAB BLOOD ORDERABLES Final Resu lt [facility] [address] [place] [address], [place] [phone] * (ABNORMAL) Comprehensive metabolic panel (12/17/2024 1:50 PM EDT) Sodium 138 133 - 145 mmol/L LAB CHEMISTRY METHOD 12/17/2024 3:16 PM [facility] Potassium 4.1 3.5 - 5.5 mmol/L LAB CHEMISTRY METHOD 12/17/2024 3:16 PM [facility] Chloride 102 96 - 110 mmol/L LAB CHEMISTRY METHOD 12/17/2024 3:16 PM [facility] CO2 27 21 - 32 mmol/L LAB CHEMISTRY METHOD 12/17/2024 3:16 PM T [facility] Anion Gap 9 3 - 11 LAB CHEMISTRY METHOD 12/17/2024 3:16 PM [facility] Glucose 322(H) 70 - 100 mg/dL LAB CHEMISTRY METHOD 12/17/2024 3:16 PM [facility] BUN 24 5 - 25 mg/dL LAB CHEMISTRY METHOD 12/17/2024 3:16 PM [facility] Creatinine 9.21(H) 0.70 - 1.30 mg/dL LAB CHEMISTRY METHOD 12/17/2024 3:16 PM T [facility] eGFR 7(L) >=60 mL/min/1. 73m2 LAB CHEMISTRY METHOD 12/17/2024 3:16 PM [facility] Comment:Calculation based on the Chronic Kidney Disease Epidemiology Collaboration (CKD-EPI) equation refit without adjustment for race. BUN/Creatinine Ratio 2.6 LAB CHEMISTRY METHOD 12/17/2024 3:16 PM T [facility] Calcium 9.3 8.5 - 10.5 mg/dL LAB CHEMISTRY METHOD 12/17/2024 3:16 PM [facility] AST (SGOT) 15 10 - 42 unit/L LAB CHEMISTRY METHOD 12/17/2024 3:16 PM [facility] ALT (SGPT) 18 10 - 60 unit/L LAB CHEMISTRY METHOD 12/17/2024 3:16 PM [facility] Alkaline Phosphatase 166(H) 42 - 121 unit/L LAB CHEMISTRY METHOD 12/17/2024 3:16 PM [facility] Total Protein 7.9 6.0 - 8.0 g/dL LAB CHEMISTRY METHOD 12/17/2024 3:16 PM [facility] Albumin 3.7 3.2 - 5.0 g/dL LAB CHEMISTRY METHOD 12/17/2024 3:16 PM [facility] Total Bilirubin 0.3 0.0 - 1.4 mg/dL LAB CHEMISTRY METHOD 12/17/2024 3:16 PM [facility] Blood Venous blood specimen / Unknown Venipuncture / Unknown 12/17/2024 1:50 PM EDT 12/17/2024 2:27 PM EDT us Chencho Abbott MD LAB BLOOD ORDERABLES Final Resu lt [facility] [address] [place] [address], [place] [phone] * Urine Albumin Creatinine Ratio (12/11/2020) Urine Albumin Creatinine Ratio Abstracted Historical Provider MD HEALTH MAINTENANCE Final Result from Last 3 Months or Most Recently Relevant to Health Maintenance Insurance MEDICARE [place] Advance Directives Documents on File Type Date Recorded Patient Stunt Person Expl anation Health Care Decision (hx) 10/12/2021 AD NAZARIO DIRECTIVE Health Care Decision (hx) 10/08/2021 AD NAZARIO DIRECTIVE Health Care Decision (hx) 10/08/2021 AD NAZARIO DIRECTIVE Health Care Decision (hx) 10/08/2021 AD NAZARIO DIRECTIVE Health Care Decision (hx) 10/08/2021 AD NAZARIO DIRECTIVE Health Care Decision (hx) 10/08/2021 AD NAZARIO DIRECTIVE Health Care Decision (hx) 10/08/2021 AD NAZARIO DIRECTIVE Care Teams Lab Tech Relationship Specialty Start Date End Date Jessica Meraz PA [address] [place] [address] PCP - General 05/16/24
--- OUTSIDE RECORDS SUMMARY | 2025-03-18 13:13 | XMS_ITS | Clinical Summary ---
Author Organization [facility] Address [address] [place] [address] Care Team Providers Care Transverse Abdominal Muscle Nurse Name Role Phone Jessica Meraz PA-C Primary Care Provider [phone] Source Comments PLEASE NOTE, if this patient [...] s:Essential hypertension,Sta ge 4 chronic kidney disease ([facility]) Take 1 Tablet by mouth once daily [...] disease with dialysis modality undecided, stage 5 ([facility]) 09/28/2023 Class 1 obesity 08/03/2022 SARS-CoV-2 positive 08/21/2021 Hypertensive urgency 2021 Nicotine dependence 2021 Generalized edema 07/13/2021 Persistent proteinuria 06/22/2021 Hypercholesterolemia 05/26/2021 Type 1 diabetes mellitus wit h stage 4 chronic kidney disease ([facility]) 05/09/2021 Stage 4 chronic kidney disease ([facility]) 0 05/09/2021 Essential hypertension 05/09/2021 Tobacco abuse 05/09/2021 Acute kidney injury ([facility] V24) 04/03/2021 Immunizations Immunization Administration Dates Next Due Flu, Preservative Free 09/28/2023,05/09/2021 Hep B,adult,adjuvanted (HEPLISAV) 09/28/2023, INFLUENZA, SEASONAL, INJECTABLE 06/09/2011 Moderna COVID-19 (Spikevax), Mrna, Lnp-s, Pf, 50 Mcg/0.5 Ml, 12yr+ 09/28/2023 PNEUMOCOCCAL CONJUGATE PCV 20 (Prevnar 20) 05/03 TDAP 05/03/2023 Social History Tobacco Use Types Packs/Day Years Used Date Smoking Tobacco: Former Cigarettes 0.5 15 Passive Smoke Exposure: Never Smokeless Tobacco: Never Tobacco Cessation:Counseling Given: Not Answered Comments:Quit age 31 Alcohol Use Standard Drinks/Week Comments Not Currently 0 (1 standard drink = 0.6 oz pur e alcohol) Social Connections Answer Date Recorded How often do you feel lonely or isolated from th ose around you? 1 05/16/2024 Financial Resource Strain Answer Date R ecorded Hard to pay for: Food 1 05/16/2024 Stress Answer Date Recorded Do you feel these kinds of stress these days? 1 05/16/2024 Physical Activity Answer Date Recorded Physical Activity 0 05/09/2021 Food Insecurity Answer Date Recorded Hard to pay for: Food 1 05/16/2024 Transportation Needs Answer Date Record ed Hard to pay for: Transportation 1 05/16/2024 Housing Stability Answer Date Recorded Hard to pay for: Rent/Mortgage payment 1 05/16/2024 Safety and Environment Answer Date Saeid rded Safety 0 05/09/2021 Utilities Answer Date Recorded Hard to pay for: Utilities 1 05/16 Employment Answer Date Recorded Stress 0 04/26/2024 [...] Date Last Done Comments Dental Examination 1990 [id number] ( season) 2024 024 Medicare Annual Wellness Visit 09/28/2024 09/28/2023 Hemoglobin A1c 11/20/2024 08/22/2024, 01/0 03/2025, 05/17/2024, Additional history exists Imm-Influenza (#1) 2025 09/28/2023, 0 05/09/2021, 06/09/2011 Anxiety Screening 05/16/2025 05/16/2024 Urine Albumin Creatinine Rat io Screening 05/17/2025 05/17/2024, 06/22/2021, 05/22/2021 Diabetes Foot Exam 05/29/2025 05/29/2024, 0 11/23/2023, 08/20/2021 Tobacco Cessation Counseling (#1) 05/30/2025 05/30/2024, 05/22/2021, 05/09/2021 Tobacco Screening 05/30/2025 05/30/2024, , 05/09/2021 Lipid Screening 08/22/2025 08/22/2024, 10/2023, 02/01/2024, Additional history exists Serum Creatinine 12/17/2025 12/17/2024, 12/2024, 09/03/2024, Additional history exists Retinopathy Screening 02/25/2026 02/25/2025 Imm-DTaP/Tdap/Td (2 - Td or Tdap) 05/03/2033 023 Imm-Pneumococcal Completed 05/03/2023 HIV Screening Completed 05/04/2023, 05/22/2021 Hepatitis C Screening Completed 05/04/2023 , 06/22/2021, 05/22/2021 Imm-Hepatitis B Completed 09/28/2023, 05/03/2023 Alcohol and Drug Screen Completed 09/21/19, 05/16/2024, 09/27/2023, Additional history exists Depression Annual Screen Completed 09/21/2024 Procedures Procedure Name Priority Date/Time Associated Diagnosis Comments REFERRAL TO OPHTHALMOLOGY Routine 02/25/2025 3:00 AM EDT Visit for eye and vision exam IMAGING SCANNED DOCUMENT 02/12/2025 3:00 AM EDT IMAGING SCANNED DOCUMENT 12/27/2024 3:00 AM EDT COMPREHENSIVE METABOLIC PANEL Routine 05/17/2024 11:51 AM EDT Type 1 diabetes mellitus with stage 4 chronic kidney disease ([facility]) Essential hypertension LIPID PANEL Routine 05/17/2024 11:51 AM EDT Type 1 diabetes mellitus with stage 4 chronic kidney disease ([facility]) Essential hypertension MICROALBUMIN/CREATINI NE RATIO, URINE, RANDOM Routine 05/17/2024 11:51 AM EDT Type 1 diabetes mellitus with stage 4 chronic kidney disease ([facility]) HEMOGLOBIN GLYCOSYLATED A1C Routine 05/17/2024 11:51 AM EDT Type 1 diabetes mellitus with stage 4 chronic kidney disease ([facility]) 3 COMP FOOT EXAM COMPLETED Routine 11/23/2023 10:30 AM EDT HIV 1/2 AG & AB W/RFLX (4TH GEN) Routine 05/04/2023 10:29 AM EDT Routine screening for STI (sexually transmitted infection) ACUTE HEPATITIS PANEL W/RFLX Routine 05/04/2023 10:29 AM EDT Routine screening for STI (sexually transmitted infection) from Last 3 Months or Most Recently Relevant to Health Maintenance Results * REFERRAL TO OPTHALMOLOGY (02/25/2025 3:00 AM EDT) 02/25/2025 3:00 AM EDT [facility]DER[facility]-C REFERRAL Final Result * IMAGING SCANNED DOCUMENT (02/12/2025 3:00 AM EDT) Only the most recent of2 resultswithin the time period is included. 02/12/2025 3:00 AM EDT [employer] PA-C SCAN IMAGING Final Result * (ABNORMAL) MICROALBUMIN/CREATININE RATIO, URINE, RANDOM (05/17/2024 11:51 AM EDT) CREATININE, RANDOM URINE 126 20 - 320 mg/dL [facility] MICROALBUMIN 34.3 mg/dL [facility] Comment: Verified by repeat analysis. Reference Range Not established MICROALBUMIN/CREA TININE RATIO, RANDOM URINE 272(H) <30 mg/g creat [facility] Comment: The ADA defines abnormalities in albumin [...] AM EDT 05/17/2024 11:51 AM EDT Narrative [facility] - 05/18/2024 6:00 PM EDT FASTING:YES us Jessica Meraz PA-C LAB URINE AMBULATORY Final R esult Performing Organization Address [facility] Co de Phone Number [facility] [address] [address], [facility] [address] [phone] * (ABNORMAL) HEMOGLOBIN GLYCOSYLATED A1C (05/17/2024 11:51 AM EDT) HEMOGLOBIN A1C 10.5(H) <5.7 % of total Hgb [facility] Comment: For someone without known diabetes, a [...] AM EDT 05/17/2024 11:51 AM EDT Narrative [facility] - 05/18/2024 6:00 PM EDT FASTING:YES us Jessica Meraz PA-C LAB - BLOOD DRAW Edited Resu lt - Final Performing Organization Address [facility] Co de Phone Number [facility] [address] [address], [facility] [address] [phone] * LIPID PANEL (05/17/2024 11:51 AM EDT) CHOLESTEROL, TOTAL 159 <200 mg/dL [facility] HDL CHOLESTEROL 53 > OR = 40 mg/dL [facility] TRIGLYCERIDES 97 <150 mg/dL [facility] LDL-CHOLESTEROL 87 99 mg/dL (calc) [facility] Comment: Reference range: <100 Desirable range <100 mg/dL for primary prevention; <70 mg/dL for patients with CHD or diabetic patients with > or = 2 CHD risk factors. LDL-C is now calculated using the Joana calculation, which is a validated novel method providing better accuracy than the Friedewald equation in the estimation of LDL-C. Harpal CARREON et al. ARAM. 2013;310(19): 1133-4895 (http://education.AkeLex/faq/VRQ280) CHOL/HDLC RATIO 3.0 <5.0 (calc) [facility] NON-HDL CHOLESTEROL 106 <130 mg/dL (calc) [facility] Comment: For patients with diabetes plus 1 major ASCVD risk factor, treating to a non-HDL-C goal of <100 mg/dL (LDL-C of <70 mg/dL) is considered a therapeutic option. Blood Blood / Unknown 05/17/2024 1 1:51 AM EDT 05/17/2024 11:51 AM EDT Narrative [facility] - 05/18/2024 6:00 PM EDT FASTING:YES Jessica Meraz PA-C LAB - BLOOD DRAW Final Resul t [facility] [address] [place] [phone], [facility] [address] [place] [phone] * (ABNORMAL) COMPREHENSIVE METABOLIC PANEL (05/17/2024 11:51 AM EDT) GLUCOSE 266(H) 65 - 99 mg/dL [facility] Comment: Fasting reference interval For someone without known diabetes, a glucose value >125 mg/dL indicates that they may have diabetes and this should be confirmed with a follow-up test. UREA NITROGEN (BUN) 40(H) 7 - 25 mg/dL [facility] CREATININE (blood) 9.75(H) 0.60 - 1.26 mg/dL [facility] Comment: Verified by repeat analysis. EGFR 7(L) > OR = 60 mL/min/1. 73m2 [facility] BUN/CREATININE RATIO 4(L) 6 - 22 (calc) [facility] SODIUM 136 135 - 146 mmol/L [facility] POTASSIUM 4.3 3.5 - 5.3 mmol/L [facility] CHLORIDE 98 98 - 110 mmol/L [facility] CARBON DIOXIDE 27 20 - 32 mmol/L [facility] CALCIUM 9.5 8.6 - 10.3 mg/dL [facility] PROTEIN, TOTAL 7.1 6.1 - 8.1 g/dL [facility] ALBUMIN 4.3 3.6 - 5.1 g/dL [facility] GLOBULIN 2.8 1.9 - 3.7 g/dL (calc) [facility] ALBUMIN/GLOBULI N RATIO 1.5 1.0 - 2.5 (calc) [facility] BILIRUBIN, TOTAL 0.5 0.2 - 1.2 mg/dL [facility] ALKALINE PHOSPHATASE 86 36 - 130 U/L [facility] AST 18 10 - 40 U/L [facility] ALT 13 9 - 46 U/L [facility] Blood Blood / Unknown 05/17/2024 1 1:51 AM EDT 05/17/2024 11:51 AM EDT Narrative [facility] - 05/18/2024 6:00 PM EDT FASTING:YES Jessica Meraz PA-C LAB - BLOOD DRAW Edited Resu lt - Final [facility] [address] [address], [facility] [address] [phone] * 3 COMP FOOT EXAM COMPLETED (11/23/2023 10:30 AM EDT) us Provider [facility] EVALUATION AND MGMT Final Result * HIV 1/2 AG & AB W/RFLX (4TH GEN) (05/04/2023 10:29 AM EDT) HIV AG/AB, 4TH GEN NON-REAC TIVE NON-REAC TIVE [facility] Comment: HIV-1 antigen and HIV-1/HIV-2 antibodies [...] purpose. For additional information please refer to http://91 Golf.[employer]/faq/SPQ619 (This link is being provided for informational/ educational purposes only.) The performance of this assay has not been clinically validated in patients less than 2 years old. Blood Blood / Unknown 05/04/2023 1 0:29 AM EDT 05/04/2023 10:30 AM EDT Narrative [facility] - 05/05/2023 11:49 PM EDT FASTING:YES Nancy CALDERON LAB - BLOOD DRAW Final Result [facility] [address] [address], [facility] [address] [phone] * ACUTE HEPATITIS PANEL W/RFLX (05/04/2023 10:29 AM EDT) HEPATITIS A IGM ANTIBODY NON-REACT PADMINI NON-REACT PADMINI [facility] COMMENT [facility] HEPATITIS B SURFACE ANTIGEN NON-REACT PADMINI NON-REACT PADMINI [facility] COMMENT Wink [facility] HEPATITIS B CORE IGM ANTIBODY NON-REACT PADMINI NON-REACT PADMINI [facility] COMMENT Wink [facility] HEPATITIS C ANTIBODY NON-REACT PADMINI NON-REACT PADMINI [facility] Comment: HCV antibody was non-reactive. There is no laboratory evidence of HCV infection. In most cases, no further action is required. However, if recent HCV exposure is suspected, a test for HCV RNA (test code 73567) is suggested. For additional information please refer to http://91 Golf.[employer]/faq/PKL02x9 (This link is being provided for informational/ educational purposes only.) Blood Blood / Unknown 05/04/2023 1 0:29 AM EDT 05/04/2023 10:30 AM EDT Narrative [facility] - 05/05/2023 11:49 PM EDT FASTING:YES For additional information, please refer to http://91 Golf.[employer]/faq/VIX577 (This link is being provided for informational/ educational purposes only.) For additional information, please refer to http://91 Golf.[employer]/faq/TRV235 (This link is being provided for informational/ educational purposes only.) For additional information, please refer to http://91 Golf.[employer]/faq/JKC859 (This link is being provided for informational/ educational purposes only.) Nancy CALDERON LAB - BLOOD DRAW Final Result Performing Organization Address City/State/[facility] Co de Phone Number [facility] [address] [address], [facility] [address] [phone] from Last 3 Months or Most Recently Relevant to Health Maintenance Insurance MED[place] Care Teams Transverse Abdominal Muscle Nurse Relationship Specialty Start Date End Date Jessica Meraz PA-C [facility] [place] [address] PCP - General [facility] 02/09/23
== END 2025-03-18 13:34 | disposition home or self-care (01) ==
LOC: HO.HOS 12:54
PROVIDERS: PCP Physician Assistant Medical; Visit Provider Physician Assistant
DX: M25.562 Pain in left knee (principal)
CPT/HCPCS: 99213; G2211

== ENCOUNTER 2025-06-27 09:03 | Outpatient (AMB) | payer OTHER, MEDICARE, MEDICAID, SELFPAY ==
--- NOTE | 2025-06-27 09:05 | A.OFFVIS_ITS ---
Vital Signs 06/27/25 09:06 Height 6 ft Weight 205 lb BMI 27.8 Intake Visit Reasons: OV-Left knee pain-DOI 09/05/24 Intake Note: Manjeet is a 34 year old male who presents today as a follow up for his left knee pain. At last visit in office he was given a Genumed knee brace. At today's visit he states ongoing pain with applying pressure and his knee gives out. He has discomfort in the knee brace, stating it feels tight in the thigh area and causing him pain. He is requesting an injection due to his pain. Allergies No Known Allergies Allergy (Verified 06/27/25 09:14) Medication List - Last Reconciled 06/27/25 by Carrie Thacker PA-C amlodipine 5 mg PO DAILY atorvastatin 80 mg PO DAILY carvedilol 25 mg PO BID insulin glargine U-300 conc (Toujeo Max U-300 SoloStar) units subcut insulin glargine-yfgn (Semglee (insulin glargine-yfgn) Pen) units subcut insulin lispro subcut isosorbide mononitrate ER 30 mg PO DAILY losartan 50 mg PO DAILY ondansetron 8 mg PO Q8H PRN pantoprazole 40 mg PO BID HPI HPI OV-Left knee pain-DOI 09/05/24: Details: 34-year-old gentleman returns to the office today for ongoing left knee pain. Date of injury 09/05/2024. At his last appointment we decided to proceed with conservative management with a knee brace and anti-inflammatories. He is on dialysis so his ability to take NSAIDs is limited. He is a diabetic and is recent A1c is around 10. Patient states he continues to experience left knee pain which is worse with weight-bearing type activity and twisting motions he feels a sharp pain along the lateral aspect of the knee which causes the knee to give out. [facility] Medical History (Updated 06/27/25 @ 09:29 by Carrie Thacker PA-C) Kidney disease Diabetes Social History Patient Tobacco Use Status: Never used Tobacco Current occupational status: unemployed Review of Systems Const All systems reviewed & are unremarkable except as noted in HPI and below Physical Exam Vital Signs: BMI result Body Mass Index 27.8 Extrem Other: Left knee is normal to inspection no effusion present. He has full range of motion with crepitus. Mild discomfort along the lateral joint line with Ralf's. Calf supple nontender neurovascularly intact. Results Reviewed Results Reviewed: 1. Moderate osteoarthritis of the lateral compartment. 2. Tear of the posterior body/posterior horn of the lateral meniscus with a displaced meniscal fragment in the lateral aspect of the suprapatellar recess. Assessment & Plan Assessment & Plan (1) Patellofemoral arthralgia of left knee: Code(s): M25.562 - Pain in left knee Category: Medical (2) Acute lateral meniscus tear of left knee: Code(s): S83.282A - Other tear of lateral meniscus, current injury, left knee, initial encounter Category: Medical Plan The patient continues to be significantly symptomatic along the lateral aspect of the knee on exam and complains of symptoms consistent with a symptomatic meniscus tear. He was interested in an injection however with his diabetes and an A1c of 10 I do not feel it is appropriate to proceed with steroid injection as this could have a negative effect on his blood glucose levels. I did briefly discuss with him the benefits of a knee arthroscopy along with the procedure in detail and recovery period. Given his A1c is 10 I explained to the patient this does place him at a higher risk for wound healing complications. Patient states he has never had issues with healing a. Because he is quite symptomatic and this is affecting his ability to perform daily activities I would like him to meet with Dr. Gardner to further discuss the risks associated with this procedure along with his medical history to decide if it is appropriate to proceed with a left knee arthroscopy. The patient is content with this plan. Coding Level of Care Code Est Pt Level 3 (46027) Complex EM visit Add On G2211 Diagnoses Patellofemoral arthralgia of left knee M25.562 Acute lateral meniscus tear of left knee S83.282A
[2025-06-27 09:06] VITALS: BMI 27.8
--- OUTSIDE RECORDS SUMMARY | 2025-06-27 09:51 | XMS_ITS | Clinical Summary ---
Author Organization [facility] Address [address] [place] [address] Care Team Providers Care Frame Straightener Name Role Phone Jessica Meraz PA-C Primary Care Provider [phone] Source Comments PLEASE NOTE, if this patient [...] s:Essential hypertension,Sta ge 4 chronic kidney disease Take 1 Tablet by mouth once daily [...] (COZAAR) 50 mg tablet 0 Refills, Maintenance, 10/17/23 15:21:00 EDT, Partial fill upon patient request [...] disease with dialysis modality undecided, stage 5 09/28/2023 Class 1 obesity 08/03/2022 SARS-CoV-2 positive 08/21/2021 Hypertensive urgency 2021 Nicotine dependence 2021 Generalized edema 07/13/2021 Persistent proteinuria 06/22/2021 Hypercholesterolemia 05/26/2021 Type 1 diabetes mellitus wit h stage 4 chronic kidney disease 05/09/2021 Stage 4 chronic kidney disease 05/09/2021 Essential hypertension 05/09/2021 Tobacco abuse 05/09/2021 Acute kidney injury 04/03/2021 Encounters Date Type Department Care Team Description 06/19/2025 3:00 PM EST Office Visit [facility] [phone] [place] [address] Jessica Meraz PA-C from Last 3 Months Immunizations Immunization Administration Dates Next Due Flu, Preservative Free 09/28/2023,05/09/2021 HPV 9 (Gardasil) 06/19/2025 Hep B,adult,adjuvanted (HEPLISAV) 09/28/2023, INFLUENZA, SEASONAL, INJECTABLE 06/09/2011 Influenza (FLUBLOK),recombinant,injectable,preservative Free 06/19/2025 Moderna COVID-19 (Spikevax), Mrna, Lnp-s, Pf, 50 Mcg/0.5 Ml, 12yr+ 09/28/2023 PNEUMOCOCCAL CONJUGATE PCV 20 (Prevnar 20) 05/03 TDAP 05/03/2023 Social History Tobacco Use Types Packs/Day Years Used Date Smoking Tobacco: Former Cigarettes 0.5 15 Passive Smoke Exposure: Never Smokeless Tobacco: Never Tobacco Cessation:Counseling Given: Yes Comments:Quit age 31 Alcohol Use Standard Drinks/Week [...] Sign Reading Time Taken Comments Blood Pressure 110/70 06/19/2025 3:09 PM EST Pulse 84 06/19/2025 3:09 PM EST Temperature 36.4 C (97.5 F) 06/19/2025 3:09 PM EST Respiratory Rate 16 06/19/2025 3:09 PM EST Oxygen Saturation 100% 06/19/2025 3:09 PM EST Inhaled Oxygen Concentration - - Weight 96.6 kg (213 lb) 06/19/2025 3:09 PM EST Height 177.8 cm (5' 10 ) 06/19/2025 3:09 PM EST Body Mass Index 30.56 06/19/2025 3:09 PM EST Plan of Treatment Health Maintenance Due Date Last Done Comments Dental Examination 1990 Medicare Annual Wellness Visit 09/28/2024 09/28/2023 [id number] ( season) 2025 024 Anxiety Screening 05/16/2025 05/16/2024 Urine Albumin Creatinine Rat io Screening 05/17/2025 05/17/2024, 06/22/2021, 05/22/2021 Diabetes Foot Exam 05/29/2025 05/29/2024, 0 11/23/2023, 08/20/2021 Imm-HPV (2 - 3-dose SCDM series) 07/17/2025 06/19/20 25 Hemoglobin A1c 08/15/2025 05/15/2025, 08/2024, 02/20/2025, Additional history exists Retinopathy Screening 02/25/2026 02/25/2025 Lipid Screening 05/15/2026 05/15/2025, 03/2025, 05/17/2024, Additional history exists Serum Creatinine 05/15/2026 05/15/2025, , 04/17/2025, Additional history exists Tobacco Cessation Counseling (#1) 06/19/2026 05/30/2024, 05/22/2021, 05/09/2021 Tobacco Screening 06/19/2026 06/19/2025, , 05/22/2021, Additional history exists Imm-DTaP/Tdap/Td (2 - Td or Tdap) 05/03/2033 023 Imm-RSV (adult) (1 - 1-dose 75+ series) 2065 Imm-Pneumococcal Completed 05/03/2023 Hepatitis C Screening Completed 05/04/2023 , 06/22/2021, 05/22/2021 Imm-Hepatitis B Completed 09/28/2023, 05/03/2023 Alcohol and Drug Screen Completed 09/21/19, 05/16/2024, 09/27/2023, Additional history exists Depression Annual Screen Completed 09/21/2024 HIV Screening Completed 06/19/2025, 04/16, 05/22/2021 Imm-Influenza Completed 06/19/2025, 09/15, 05/09/2021, Additional history exists Procedures Procedure Name Priority Date/Time Associated Diagnosis Comments HIV 1/2 AG & AB W/RFLX (4TH GEN) Routine 06/19/2025 3:56 PM EST Routine screening for STI (sexually transmitted infection) RPR (DIAGNOSIS) WITH REFLEX TO TITER AND CONFIRMATORY TESTING Routine 06/19/2025 3:56 PM EST Routine screening for STI (sexually transmitted infection) CARD SCANNED DOCUMENT 05/13/2025 3:00 AM EDT IMAGING SCANNED DOCUMENT 05/13/2025 3:00 AM EDT REFERRAL TO OPHTHALMOLOGY Routine 02/25/2025 3:00 AM EDT Visit for eye and vision exam COMPREHENSIVE METABOLIC PANEL Routine 05/17/2024 11:51 AM EDT Type 1 diabetes mellitus with stage 4 chronic kidney disease ([facility]) Essential hypertension LIPID PANEL Routine 05/17/2024 11:51 AM EDT Type 1 diabetes mellitus with stage 4 chronic kidney disease ([facility]) Essential hypertension MICROALBUMIN/CREATINI NE RATIO, URINE, RANDOM Routine 05/17/2024 11:51 AM EDT Type 1 diabetes mellitus with stage 4 chronic kidney disease ([facility]) HEMOGLOBIN GLYCOSYLATED A1C Routine 05/17/2024 11:51 AM EDT Type 1 diabetes mellitus with stage 4 chronic kidney disease ([facility]) 3 COMP FOOT EXAM COMPLETED Routine 11/23/2023 10:30 AM EDT ACUTE HEPATITIS PANEL W/RFLX Routine 05/04/2023 10:29 AM EDT Routine screening for STI (sexually transmitted infection) from Last 3 Months or Most Recently Relevant to Health Maintenance Results * RPR (DIAGNOSIS) WITH REFLEX TO TITER AND CONFIRMATORY TESTING Routine (06/19/2025 3:56 PM EST) RPR (DX) W/REFL TITER AND CONFIRMATORY TESTING NON-REACT PADMINI NON-REACT PADMINI 06/20/2025 6:00 PM EST [facility] Serum Blood / Unknown 06/19/2025 3 :56 PM EST 06/20/2025 4:07 AM EST Narrative [facility] - 06/20/2025 6:01 PM EST . No laboratory evidence of syphilis. If recent exposure is suspected, submit a new sample in 2-4 weeks. . us Jessica Meraz PA-C LAB - BLOOD DRAW Final Resul t [facility] [address] [place] [id number], [facility] [address] [address] * HIV 1/2 AG & AB W/RFLX (4TH GEN) Routine (06/19/2025 3:56 PM EST) HIV Screen Final HIV NEGATIVE 06/20/2025 5:30 AM EST [facility] HIV AG/AB, 4TH GEN NON-REACTIVE NON-REACT PADMINI 06/20/2025 5:30 AM EST [facility] Blood Blood / Unknown 06/19/2025 3 :56 PM EST 06/20/2025 4:33 AM EST Narrative [facility] [place] [facility] - 06/20/2025 5:31 AM EST HIV-1 antigen and HIV-1/HIV-2 antibodies were not detected. There is no laboratory evidence of HIV infection. [facility] Mer[facility] PA-C LAB - BLOOD DRAW Final Resul t [facility] [place] [facility] [address] [place] [id number], [place] [facility] [address] [address] * CARD SCANNED DOCUMENT (05/13/2025 3:00 AM EDT) 05/13/2025 3:00 AM EDT [facility] Mer[facility] PA-C SCAN ECGS Final Result * IMAGING SCANNED DOCUMENT (05/13/2025 3:00 AM EDT) 05/13/2025 3:00 AM EDT [facility] PA-C SCAN IMAGING Final Result * REFERRAL TO OPTHALMOLOGY (02/25/2025 3:00 AM EDT) 02/25/2025 3:00 AM EDT [facility] PA-C REFERRAL Final Result * (ABNORMAL) MICROALBUMIN/CREATININE RATIO, URINE, RANDOM (05/17/2024 11:51 AM EDT) CREATININE, RANDOM URINE 126 20 - 320 mg/dL [facility] MICROALBUMIN 34.3 mg/dL [facility] Comment: Verified by repeat analysis. Reference Range Not established MICROALBUMIN/CREA TININE RATIO, RANDOM URINE 272(H) <30 mg/g creat [facility] Comment: The ADA defines abnormalities [...] AM EDT 05/17/2024 11:51 AM EDT Narrative [facility] - 05/18/2024 6:00 PM EDT FASTING:YES Jessica Meraz PA-C LAB URINE AMBULATORY Final R esult [facility] [address] [address], [facility] [address] [address] * LIPID PANEL (05/17/2024 11:51 AM EDT) CHOLESTEROL, TOTAL 159 <200 mg/dL [facility] HDL CHOLESTEROL 53 > OR = 40 mg/dL [facility] TRIGLYCERIDES 97 <150 mg/dL [facility] LDL-CHOLESTEROL 87 99 mg/dL (calc) [facility] Comment: Reference range: <100 Desirable range <100 mg/dL for primary prevention; <70 mg/dL for patients with CHD or diabetic patients with > or = 2 CHD risk factors. LDL-C is now calculated using the Joana calculation, which is a validated novel method providing better accuracy than the Friedewald equation in the estimation of LDL-C. Harpal CARREON et al. ARAM. 2013;310(19): 8136-9657 (http://education.Netsonda Research.RiverMeadow Software/faq/KOG669) CHOL/HDLC RATIO 3.0 <5.0 (calc) [facility] NON-HDL CHOLESTEROL 106 <130 mg/dL (calc) [facility] Comment: For patients with diabetes plus 1 major ASCVD risk factor, treating to a non-HDL-C goal of <100 mg/dL (LDL-C of <70 mg/dL) is considered a therapeutic option. Blood Blood / Unknown 05/17/2024 1 1:51 AM EDT 05/17/2024 11:51 AM EDT Narrative [facility] - 05/18/2024 6:00 PM EDT FASTING:YES Jessica Meraz PA-C LAB - BLOOD DRAW Final Resul t [facility] [address] [id number], [facility] [address] [address] * (ABNORMAL) COMPREHENSIVE METABOLIC PANEL (05/17/2024 11:51 AM EDT) GLUCOSE 266(H) 65 - 99 mg/dL [facility] Comment: Fasting reference interval For someone without known diabetes, a glucose value >125 mg/dL indicates that they may have diabetes and this should be confirmed with a follow-up test. UREA NITROGEN (BUN) 40(H) 7 - 25 mg/dL [facility] CREATININE (blood) 9.75(H) 0.60 - 1.26 mg/dL [facility] Comment: Verified by repeat analysis. EGFR 7(L) > OR = 60 mL/min/1. 73m2 [facility] BUN/CREATININE RATIO 4(L) 6 - 22 (calc) [facility] SODIUM 136 135 - 146 mmol/L [facility] POTASSIUM 4.3 3.5 - 5.3 mmol/L [facility] CHLORIDE 98 98 - 110 mmol/L [facility] CARBON DIOXIDE 27 20 - 32 mmol/L [facility] CALCIUM 9.5 8.6 - 10.3 mg/dL [facility] PROTEIN, TOTAL 7.1 6.1 - 8.1 g/dL [facility] ALBUMIN 4.3 3.6 - 5.1 g/dL [facility] GLOBULIN 2.8 1.9 - 3.7 g/dL (calc) [facility] ALBUMIN/GLOBULI N RATIO 1.5 1.0 - 2.5 (calc) [facility] BILIRUBIN, TOTAL 0.5 0.2 - 1.2 mg/dL [facility] ALKALINE PHOSPHATASE 86 36 - 130 U/L [facility] AST 18 10 - 40 U/L [facility] ALT 13 9 - 46 U/L [facility] Blood Blood / Unknown 05/17/2024 1 1:51 AM EDT 05/17/2024 11:51 AM EDT Narrative [facility] - 05/18/2024 6:00 PM EDT FASTING:YES Jessica Meraz PA-C LAB - BLOOD DRAW Edited Resu lt - Final [facility] [address] [address], [facility] [address] [address] * 3 COMP FOOT EXAM COMPLETED (11/23/2023 10:30 AM EDT) Provider [facility] EVALUATION AND MGMT Final Result * ACUTE HEPATITIS PANEL W/RFLX (05/04/2023 10:29 AM EDT) HEPATITIS A IGM ANTIBODY NON-REACT PADMINI NON-REACT PADMINI [facility] COMMENT [facility] HEPATITIS B SURFACE ANTIGEN NON-REACT PADMINI NON-REACT PADMINI [facility] COMMENT [facility] HEPATITIS B CORE IGM ANTIBODY NON-REACT PADMINI NON-REACT PADMINI [facility] COMMENT [facility] HEPATITIS C ANTIBODY NON-REACT PADMINI NON-REACT PADMINI [facility] Comment: HCV antibody was non-reactive. There is no laboratory evidence of HCV infection. In most cases, no further action is required. However, if recent HCV exposure is suspected, a test for HCV RNA (test code 36183) is suggested. For additional information please refer to http://education.Insightly/faq/WWL16e1 (This link is being provided for informational/ educational purposes only.) Blood Blood / Unknown 05/04/2023 1 0:29 AM EDT 05/04/2023 10:30 AM EDT Narrative [facility] - 05/05/2023 11:49 PM EDT FASTING:YES For additional information, please refer to http://Coin-Tech.Insightly/faq/GMD435 (This link is being provided for informational/ educational purposes only.) For additional information, please refer to http://Coin-Tech.Insightly/faq/BBR540 (This link is being provided for informational/ educational purposes only.) For additional information, please refer to http://Coin-Tech.Insightly/faq/NOA167 (This link is being provided for informational/ educational purposes only.) Nancy CALDERON LAB - BLOOD DRAW Final Result [facility] [address] [address], [facility] [address] [address] from Last 3 Months or Most Recently Relevant to Health Maintenance Insurance [place] - [place] Care Teams Frame Straightener Relationship Specialty Start Date End Date Jessica Meraz PA-C [address] [place] [address] PCP - General FAMILY MEDICINE, [place] 02/09/23
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
--- OUTSIDE RECORDS SUMMARY | 2025-06-27 09:52 | XMS_ITS | Clinical Summary ---
Author Organization [facility] Address [address] [facility] [address] [place] [address] Phone Care Team Providers Care [employer] Officer Name Role Phone Jordan Woo MD Primary Care Provider [phone] Allergies No known active allergies Medications insulin [...] day For 7 days 08/25/19 22 Active Continuous Blood Gluc Reinforcing Steel Placer (Dexcom G6 Reinforcing Steel Placer) device 09/08/19 22 Active NovoLOG FLEXPEN 100 [...] split. 90 tablet 3 06/30/20 22 Active isosorbide mononitrate (IMDUR) 30 MG 24 hr tablet Take 1 tablet (30 mg total) by mouth 1 (one) time each day 90 tablet 3 09/30/19 24 Active amLODIPine (NORVASC) 5 MG tablet Take 1 tablet (5 mg total) by mouth 1 (one) time each day 90 tablet 3 10/05/19 25 Active losartan (Cozaar) 50 MG tablet Take 1 tablet (50 mg total) by mouth 1 (one) time each day 90 tablet 3 11/23/19 25 026 Active B kduowcq-V-ijlsf acid 1 MG capsule Take 1 capsule by mouth 1 (one) time each day 30 each 11/23/19 25 Active omeprazole (PriLOSEC) [address] capsule Take 1 capsule (40 mg total) by mouth 1 (one) time each day Do not crush or chew. 30 capsule 11/23/19 25 Active Melatonin 10 MG tablet Take 10 mg by mouth every night 30 tablet 11/23/19 25 026 Active ondansetron ODT (ZOFRAN-ODT) 4 MG dispersible tablet Take 1 tablet (4 mg total) by mouth every 8 (eight) hours if needed for nausea or vomiting 20 tablet 05/13/20 25 Active carvedilol (COREG) 25 MG tablet Take 1 tablet (25 mg total) by mouth in the morning and 1 tablet (25 mg total) in the evening. 60 tablet 06/03/20 25 Active metoclopramide (Reglan) 5 MG tablet Take 1 tablet (5 mg total) by mouth in the morning and 1 tablet (5 mg total) at noon and 1 tablet (5 mg total) in the evening. Take with meals. 180 tablet 3 06/03/20 25 Active pantoprazole (Protonix) 40 MG EC tablet Take 1 tablet (40 mg total) by mouth in the morning and 1 tablet (40 mg total) in the evening. Do not crush, chew, or split. 60 tablet 06/03/20 25 026 Active carvedilol (COREG) 25 MG tablet Take 1 tablet (25 mg total) by mouth in the morning and 1 tablet (25 mg total) in the evening. 60 tablet 11/23/19 25 025 Discontin ued(Reord er (does not appear on AVS)) metoclopramide (Reglan) 5 MG tablet Take 1 tablet (5 mg total) by mouth in the morning and 1 tablet (5 mg total) at noon and 1 tablet (5 mg total) in the evening. Take with meals. 180 tablet 3 11/23/19 25 025 Discontin ued(Reord er (does not appear on AVS)) pantoprazole (Protonix) 40 MG EC tablet Take 1 tablet (40 mg total) by mouth in the morning and 1 tablet (40 mg total) in the evening. Do not crush, chew, or split. 60 tablet 11 11/23/19 25 025 Discontin ued(Reord er (does not appear on AVS)) Active Problems Problem Noted Date Diagnosed Date [...] Encounters Date Type Department Care Team Description 06/24/2025 Treatment [facility] [address] [place] [phone] Jordan Elaine MD End stage renal disease; Dependence on renal dialysis 06/17/2025 Treatment [facility] [address] [place] [phone] Jordan Elaine MD End stage renal disease; Dependence on renal dialysis 06/10/2025 Treatment [facility] [address] [phone] Jordan Elaine MD End stage renal disease; Dependence on renal dialysis 06/03/2025 Treatment [facility] [address] [phone] Jordan Elaine MD End stage renal disease; Dependence on renal dialysis 06/03/2025 Orders Only [facility] [address] [place] [phone] Annel Maurice, NESS 06/03/2025 Orders Only [facility] [address] [place] [phone] Annel Maurice, NESS 05/27/2025 Treatment [facility] [address] [phone] Jordan Elaine MD End stage renal disease; Dependence on renal dialysis 05/20/2025 Orders Only [facility] [address] [place] [address] Annel Maurice, NESS 05/20/2025 Treatment [facility] [address] [phone] Jordan Elaine MD End stage renal disease; Dependence on renal dialysis 05/13/2025 Orders Only [facility] [address] [place] [phone] Annel Maurice, NESS 05/13/2025 Treatment [facility] [address] [phone] Jordan Elaine MD End stage renal disease; Dependence on renal dialysis 05/01/2025 Treatment [facility] [address] [phone] Jordan Elaine MD End stage renal disease; Dependence on renal dialysis 04/22/2025 Treatment [facility] [address] [phone] Jordan Elaine MD End stage renal disease; Dependence on renal dialysis 04/15/2025 Treatment [facility] [address] [phone] Jordan Elaine MD End stage renal disease; Dependence on renal dialysis 04/08/2025 Treatment [facility] [address] [phone] Jordan Elaine MD End stage renal disease; Dependence on renal dialysis 04/03/2025 Treatment [facility] [place] [phone] [phone] Jordan Elaine MD End stage renal disease; Dependence on renal dialysis from Last 3 Months Immunizations Immunization Administration Dates Next Due Influenza, Quadrivalent, Preservative [...] Due Date Last Done Comments Pneumococcal Vaccine: Peds ( 0 to 5 Years) and At-Risk Patients (6 to 49 Years) (1 of 2 - PCV) 2009 Hepatitis B Vaccine (1 of 5 - Risk Dialysis 4-dose series) 2010 Diabetes: Ophthalmology Exam 08/27/2024 Diabetes: Pedal Pulse Checked 08/27/2024 Diabetes: Sensory Foot Exam 08/27/2024 Diabetes: Visual Foot Exam 08/27/2024 Influenza Vaccine (#1) 2025 09/28/2023, 2020 Diabetes: Hemoglobin A1C 08/15/2025 025, 02/20/2025, 11/14/2024, Additional history exists Procedures Procedure Name Priority Date/Time Associated Diagnosis Comments FERRITIN Routine 06/19/2025 3:00 AM EST PTH, INTACT Routine 06/19/2025 3:00 AM EST TRANSFERRIN SATURATION Routine 3:00 AM EST PROTEIN, TOTAL, SERUM Routine 06/19/2025 3:00 AM EST ELECTROLYTE PANEL Routine 06/19/2025 3:0 0 AM EST MAGNESIUM Routine 06/19/2025 3:00 AM EST LIH (HC) Routine 06/19/2025 3:00 AM EST LACTATE DEHYDROGENASE Routine 06/19/2025 3:00 AM EST GLUCOSE, RANDOM Routine 06/19/2025 3:00 AM EST BUN/CREATININE RATIO Routine 06/19/2025 3:00 AM EST CREATININE, SERUM Routine 06/19/2025 3:0 0 AM EST BILIRUBIN, TOTAL Routine 06/19/2025 3:00 AM EST AST Routine 06/19/2025 3:00 AM EST ALT Routine 06/19/2025 3:00 AM EST ALKALINE PHOSPHATASE Routine 06/19/2025 3:00 AM EST CALCIUM PHOSPHORUS PRODUCT, ADJUSTED (HC) Routine 06/19/2025 3:00 AM EST CBC AND DIFFERENTIAL Routine 06/19/2025 3:00 AM EST KT/V NATURAL LOG, URR (HC) Routine 06/19/2025 3:00 AM EST HEMOGLOBIN Routine 06/12/2025 3:00 AM EDT HEMOGLOBIN AND HEMATOCRIT, BLOOD Routine 05/29/2025 3:00 AM EDT LIH (HC) Routine 05/20/2025 3:00 AM EDT KT/V NATURAL LOG, URR (HC) Routine 05/20/2025 3:00 AM EDT HEMOGLOBIN A1C Routine 05/15/2025 3:00 AM EDT LIPID PANEL Routine 05/15/2025 3:00 AM EDT CREATININE, SERUM Routine 05/15/2025 3:0 0 AM EDT AST Routine 05/15/2025 3:00 AM EDT ELECTROLYTE PANEL Routine 05/15/2025 3:0 0 AM EDT PROTEIN, TOTAL, SERUM Routine 05/15/2025 3:00 AM EDT ALKALINE PHOSPHATASE Routine 05/15/2025 3:00 AM EDT GLUCOSE, RANDOM Routine 05/15/2025 3:00 AM EDT PTH, INTACT Routine 05/15/2025 3:00 AM EDT TRANSFERRIN SATURATION Routine 3:00 AM EDT FERRITIN Routine 05/15/2025 3:00 AM EDT BUN/CREATININE RATIO Routine 05/15/2025 3:00 AM EDT MAGNESIUM Routine 05/15/2025 3:00 AM EDT CALCIUM PHOSPHORUS PRODUCT, ADJUSTED (HC) Routine 05/15/2025 3:00 AM EDT LIH (HC) Routine 05/15/2025 3:00 AM EDT LACTATE DEHYDROGENASE Routine 05/15/2025 3:00 AM EDT BILIRUBIN, TOTAL Routine 05/15/2025 3:00 AM EDT ALT Routine 05/15/2025 3:00 AM EDT CBC AND DIFFERENTIAL Routine 05/15/2025 3:00 AM EDT KT/V NATURAL LOG, URR (HC) Routine 05/15/2025 3:00 AM EDT POTASSIUM Routine 05/08/2025 3:00 AM EDT LIH (HC) Routine 05/08/2025 3:00 AM EDT HEMOGLOBIN Routine 05/08/2025 3:00 AM EDT HEMOGLOBIN AND HEMATOCRIT, BLOOD Routine 05/01/2025 3:00 AM EDT LIH (HC) Routine 05/01/2025 3:00 AM EDT POTASSIUM Routine 05/01/2025 3:00 AM EDT POTASSIUM Routine 04/24/2025 3:00 AM EDT LIH (HC) Routine 04/24/2025 3:00 AM EDT TRANSFERRIN SATURATION Routine 3:00 AM EDT PROTEIN, TOTAL, SERUM Routine 04/17/2025 3:00 AM EDT MAGNESIUM Routine 04/17/2025 3:00 AM EDT ELECTROLYTE PANEL Routine 04/17/2025 3:0 0 AM EDT LACTATE DEHYDROGENASE Routine 04/17/2025 3:00 AM EDT LIH (HC) Routine 04/17/2025 3:00 AM EDT GLUCOSE, RANDOM Routine 04/17/2025 3:00 AM EDT BUN/CREATININE RATIO Routine 04/17/2025 3:00 AM EDT CREATININE, SERUM Routine 04/17/2025 3:0 0 AM EDT AST Routine 04/17/2025 3:00 AM EDT BILIRUBIN, TOTAL Routine 04/17/2025 3:00 AM EDT ALT Routine 04/17/2025 3:00 AM EDT ALKALINE PHOSPHATASE Routine 04/17/2025 3:00 AM EDT CALCIUM PHOSPHORUS PRODUCT, ADJUSTED (HC) Routine 04/17/2025 3:00 AM EDT PTH, INTACT Routine 04/17/2025 3:00 AM EDT FERRITIN Routine 04/17/2025 3:00 AM EDT KT/V NATURAL LOG, URR (HC) Routine 04/17/2025 3:00 AM EDT CBC AND DIFFERENTIAL Routine 04/17/2025 3:00 AM EDT HEMOGLOBIN Routine 04/10/2025 3:00 AM EDT HEMOGLOBIN AND HEMATOCRIT, BLOOD Routine 04/03/2025 3:00 AM EDT from Last 3 Months Results * LIH (06/19/2025 3:00 AM EST) Only the most recent of7 resultswithin the time period is included. Lipemia Normal Normal [facility] Icterus Normal Normal [facility] Hemolysis Normal Normal [facility] 06/19/2025 3:00 AM EST 06/20/2025 1:09 PM EST us Jordan Elaine MD LAB [id number] SOLICITED RESULTS Final Result [facility] [address] [place] [address] * (ABNORMAL) Kt/V Natural Log, URR (06/19/2025 3:00 AM EST) Only the most recent of4 resultswithin the time period is included. Treatment Time 240 min [facility] Pre-Weight, lb 98.4 kg [facility] Post-Weight, lb 95.5 kg [facility] Ultrafiltration Rate 8 <=13 mL/kg/hr [facility] Comment: Recommend achieving Ultrafiltration Rate (UFR) <=10 mL/kg/hr References: Kai AMEZQUITA et al. Kidney Int. 2010; 79(2):250-257 BUN Post Dialysis 18 7 - 25 mg/dL [facility] BUN 54(H) 7 - 25 mg/dL [facility] UREA REDUCTION RATIO (%) 67 >=65 % [facility] Kt/V Natural Log 1.29 >=1.2 [facility] 06/19/2025 3:00 AM EST 06/20/2025 12:39 PM EST us Jordan Elaine MD LAB [id number] SOLICITED RESULTS Final Result Performing Organization Address [facility] Co de Phone Number [facility] [address] [place] [address] * (ABNORMAL) Calcium Phosphorus Product, Adjusted (06/19/2025 3:00 AM EST) Only the most recent of3 resultswithin the time period is included. Albumin 4.3 3.6 - 5.4 g/dL [facility] Calcium 8.8 8.6 - 10.3 mg/dL [facility] Phosphorus, Serum 7.4(H) 2.5 - 5.0 mg/dL [facility] Ca*PO4 65.1(A) <55.0 mg2/dL2 [facility] Calcium, Adjusted Total 8.8 8.6 - 10.3 mg/dL [facility] CA*PO4 CORRCTD 65.1(A) <55.0 mg2/dL2 [facility] 06/19/2025 3:00 AM EST 06/20/2025 1:09 PM EST us Jordan Elaine MD LAB [id number] SOLICITED RESULTS Final Result Performing Organization Address [facility] de Phone Number [facility] [address] [place] [address] * BUN/CREATININE RATIO (06/19/2025 3:00 AM EST) Only the most recent of3 resultswithin the time period is included. BUN/Creatinine Ratio 4.0 <=23.0 [facility] 06/19/2025 3:00 AM EST 06/20/2025 1:09 PM EST us Jordan Elaine MD LAB [id number] SOLICITED RESULTS Final Result Performing Organization Address [facility]/ZIP Co de Phone Number [facility] [address] [place] [address] * (ABNORMAL) TSAT (06/19/2025 3:00 AM EST) Only the most recent of3 resultswithin the time period is included. [facility] Iron 83 65 - 175 ug/dL [facility] Transferrin 125(L) 215 - 365 mg/dL [facility] TIBC 175(L) 211 - 406 ug/dL [facility] Iron Saturation (TSat) 47 22 - 52 % [facility] 06/19/2025 3:00 AM EST 06/20/2025 1:09 PM EST us Jordan Elaine MD LAB BLOOD ORDERABLES Final Re sult [facility] [address] [place] [address] * (ABNORMAL) CBC and Differential (06/19/2025 3:00 AM EST) Only the most recent of3 resultswithin the time period is included. [facility] DIFFERENTIAL MANUAL, 2 Not Indicated [facility] White Blood Cells 4.9 4.2 - 9.1 K/uL [facility] RBC 3.48(L) 4.63 - 6.08 M/uL [facility] Hgb 10.6(L) 13.7 - 17.5 g/dL [facility] Hemoglobin x 3 31.8(L) 41.1 - 52.5 g/dL [facility] Hematocrit 32.0(L) 40.1 - 51.0 % [facility] MCV 92.0 79.0 - 92.2 fL [facility] MCH 30.5 25.7 - 32.2 pg [facility] MCHC 33.1 32.3 - 36.5 g/dL [facility] RDW 14.8(H) 11.6 - 14.4 % [facility] Platelets 250 163 - 337 K/uL [facility] MPV 10.9 9.1 - 13.0 fL [facility] Neutrophils Relative 50.6 34.0 - 67.9 % [facility] Lymphocytes Relative 29.8 21.8 - 53.1 % [facility] Monocytes 10.5 5.3 - 12.2 % [facility] Eosinophils Relative 7.5(H) 0.8 - 7.0 % [facility] Basophils Relative 0.8 0.2 - 1.2 % [facility] Immature Granulocytes 0.8 0.0 - 1.0 % [facility] 06/19/2025 3:00 AM EST 06/20/2025 12:53 PM EST Jordan Elaine MD LAB BLOOD ORDERABLES Final Re sult Performing Organization Address [facility] de Phone Number [facility] [address] [place] [address] * ALT (06/19/2025 3:00 AM EST) Only the most recent of3 resultswithin the time period is included. ALT (SGPT) 10 10 - 49 U/L [facility] 06/19/2025 3:00 AM EST 06/20/2025 1:09 PM EST Jordan Elaine MD LAB BLOOD ORDERABLES Final Re sult Performing Organization Address [facility] de Phone Number [facility] [address] [place] [address] * AST (06/19/2025 3:00 AM EST) Only the most recent of3 resultswithin the time period is included. AST (SGOT) 16 <34 U/L [facility] 06/19/2025 3:00 AM EST 06/20/2025 1:09 PM EST Jordan Elaine MD LAB BLOOD ORDERABLES Final Re sult Performing Organization Address [facility] de Phone Number [facility] [address] [place] [address] * Protein, total (06/19/2025 3:00 AM EST) Only the most recent of3 resultswithin the time period is included. Total Protein 7.1 6.4 - 8.9 g/dL [facility] 06/19/2025 3:00 AM EST 06/20/2025 1:09 PM EST Jordan Elaine MD LAB BLOOD ORDERABLES Final Re sult Performing Organization Address [facility] Co de Phone Number [facility] [address] [place] [address] * (ABNORMAL) Alkaline phosphatase (06/19/2025 3:00 AM EST) Only the most recent of3 resultswithin the time period is included. Alkaline Phosphatase 173(H) 46 - 116 U/L [facility] 06/19/2025 3:00 AM EST 06/20/2025 1:09 PM EST Jordan Elaine MD LAB BLOOD ORDERABLES Final Re sult Performing Organization Address [facility] de Phone Number [facility] [address] [place] [address] * (ABNORMAL) PTH, Intact (06/19/2025 3:00 AM EST) Only the most recent of3 resultswithin the time period is included. PTH, Intact 1,220(H) 160 - 721 pg/mL [facility] Comment: Suggested (KDIGO) ESRD maintenance range is two to nine times the upper normal limit (80.1 pg/mL) for the laboratory. 06/19/2025 3:00 AM EST 06/20/2025 1:09 PM EST Jordan Elaine MD LAB BLOOD ORDERABLES Final Re sult Performing Organization Address [facility] de Phone Number [facility] [address] [place] [address] * Magnesium (06/19/2025 3:00 AM EST) Only the most recent of3 resultswithin the time period is included. Magnesium 2.3 1.9 - 2.7 mg/dL [facility] 06/19/2025 3:00 AM EST 06/20/2025 1:09 PM EST Jordan Elaine MD LAB BLOOD ORDERABLES Final Re sult Performing Organization Address [facility] de Phone Number [facility] [address] [place] [address] * Lactate dehydrogenase (06/19/2025 3:00 AM EST) Only the most recent of3 resultswithin the time period is included. LDH 154 120 - 246 U/L [facility] 06/19/2025 3:00 AM EST 06/20/2025 1:09 PM EST Jordan Elaine MD LAB BLOOD ORDERABLES Final Re sult Performing Organization Address [facility] Phone Number [facility] [address] [place] [address] * (ABNORMAL) Glucose, random (06/19/2025 3:00 AM EST) Only the most recent of3 resultswithin the time period is included. Glucose 286(H) 70 - 99 mg/dL [facility] Comment: ADA guidelines outline the following fasting glucose ranges: Normal: <100 Prediabetes: 100-125 Diabetes: >125 06/19/2025 3:00 AM EST 06/20/2025 1:09 PM EST Jordan Elaine MD LAB BLOOD ORDERABLES Final Re sult Performing Organization Address [facility] Phone Number [facility] [address] [place] [address] * (ABNORMAL) Ferritin (06/19/2025 3:00 AM EST) Only the most recent of3 resultswithin the time period is included. Ferritin 784(H) 22 - 322 ng/mL [facility] 06/19/2025 3:00 AM EST 06/20/2025 1:09 PM EST Jordan Elaine MD LAB BLOOD ORDERABLES Final Re sult Performing Organization Address [facility]/ZIP Co de Phone Number [facility] [address] [place] [address] * (ABNORMAL) Creatinine, serum (06/19/2025 3:00 AM EST) Only the most recent of3 resultswithin the time period is included. Creatinine 13.54(H) 0.70 - 1.30 mg/dL [facility] 06/19/2025 3:00 AM EST 06/20/2025 1:09 PM EST Jordan Elaine MD LAB BLOOD ORDERABLES Final Re sult Performing Organization Address [facility] Co de Phone Number [facility] [address] [place] [address] * (ABNORMAL) Bilirubin, total (06/19/2025 3:00 AM EST) Only the most recent of3 resultswithin the time period is included. Total Bilirubin <0.2(L) 0.3 - 1.2 mg/dL [facility] 06/19/2025 3:00 AM EST 06/20/2025 1:09 PM EST Jordan Elaine MD LAB BLOOD ORDERABLES Final Re sult Performing Organization Address [facility] Co de Phone Number [facility] [address] [place] [address] * (ABNORMAL) Electrolyte panel (06/19/2025 3:00 AM EST) Only the most recent of3 resultswithin the time period is included. Sodium 137 136 - 145 mEq/L [facility] Potassium 4.2 3.4 - 5.0 mEq/L [facility] Chloride 100 98 - 107 mEq/L [facility] Bicarbonate (CO2) 22 21 - 31 mEq/L [facility] Anion Gap 15(H) 3 - 14 mEq/L [facility] 06/19/2025 3:00 AM EST 06/20/2025 1:09 PM EST us Jordan Elaine MD LAB BLOOD ORDERABLES Final Re sult Performing Organization Address [facility] de Phone Number [facility] [address] [place] [address] * (ABNORMAL) Hemoglobin (06/12/2025 3:00 AM EDT) Only the most recent of3 resultswithin the time period is included. Hgb 10.0(L) 13.7 - 17.5 g/dL [facility] Hemoglobin x 3 30.0(L) 41.1 - 52.5 g/dL [facility] 06/12/2025 3:00 AM EDT 06/13/2025 12:21 PM EDT Jordan Elaine MD LAB BLOOD ORDERABLES Final Re sult Performing Organization Address [facility] de Phone Number [facility] [address] [place] [address] * (ABNORMAL) Hemoglobin and hematocrit (05/29/2025 3:00 AM EDT) Only the most recent of3 resultswithin the time period is included. Hgb 9.3(L) 13.7 - 17.5 g/dL [facility] Hematocrit 28.6(L) 40.1 - 51.0 % [facility] Hemoglobin x 3 27.9(L) 41.1 - 52.5 g/dL [facility] 05/29/2025 3:00 AM EDT 05/30/2025 2:13 PM EDT Jordan Elaine MD LAB BLOOD ORDERABLES Final Re sult Performing Organization Address [facility] de Phone Number [facility] [address] [place] [address] * (ABNORMAL) Hemoglobin A1c (05/15/2025 3:00 AM EDT) Hemoglobin A1C 8.9(H) <5.7 % [facility] Comment: Methodology: Enzymatic Normal: <5.7% Prediabetes: 5.7-6.4% Diabetes: >6.4% Diabetic Glucose Control Evaluation: Therapeutic action suggested at >8.0% ADA recommends a glycemic goal of <7.0% 05/15/2025 3:00 AM EDT 05/16/2025 1:56 PM EDT us Jordan Elaine MD LAB BLOOD ORDERABLES Final Re sult Performing Organization Address [facility] de Phone Number [facility] [address] [place] [address] * (ABNORMAL) Lipid panel (05/15/2025 3:00 AM EDT) Cholesterol 220(H) mg/dL [facility] Comment: Optimal: <200 Borderline: 200-239 High Risk: >239 Triglycerides 308(H) mg/dL [facility] Comment: Optimal: <150 Borderline: 150-200 High Risk: >200 HDL 36(L) mg/dL [facility] Comment: Optimal: >59 Borderline: 40-59 High Risk: <40 LDL-Calc 122(H) mg/dL [facility] Comment: Optimal: <100 Borderline: 100-159 High Risk: >159 VLDL Cholesterol Emmanuel 62(H) mg/dL [facility] Comment: Optimal: <30 Borderline: 30-40 High Risk: >40 Chol/HDL Ratio 6.1(H) [facility] Comment: Optimal: <3.3 High Risk: >6.2 05/15/2025 3:00 AM EDT 05/16/2025 1:58 PM EDT us Jordan Elaine MD LAB BLOOD ORDERABLES Final Re sult Performing Organization Address [facility] de Phone Number [facility] [address] [place] [address] * (ABNORMAL) Potassium (05/08/2025 3:00 AM EDT) Only the most recent of3 resultswithin the time period is included. Potassium 5.7(H) 3.4 - 5.0 mEq/L [facility] 05/08/2025 3:00 AM EDT 05/09/2025 2:58 PM EDT us Jordan Elaine MD LAB BLOOD ORDERABLES Final Re sult [facility] [address] [place] [address] from Last 3 Months Insurance [place] Care Teams [employer] Officer Relationship Specialty Start Date End Date Jordan Woo MD [address] [place] [address] PCP - General Internal Medicine 06/03/21
--- OUTSIDE RECORDS SUMMARY | 2025-06-27 09:52 | XMS_ITS | Encounter Summary ---
Author Organization [facility] Address [address] [facility] [address] [place] [address] Phone Care Team Providers Care Environmental Aid Name Role Phone Jordan Woo MD Primary Care Provider [phone]- [phone] Reason for Visit * Reason Comments Med Refill Encounter Details Date Type Department Care Team (Late st Contact Info) Description 10/22/2024 Refill [facility] [address] [place] [address] Jordan Elaine MD [address] [facility] [address] [place] [id number] Social History Tobacco Use Types Packs/Day Years [...] Procedure Name Priority Date/Time Associated Diagnosis Comments LIH () Routine 11/14/2024 3:00 AM EDT KT/V NATURAL LOG, URR () Routine 11/14/2024 3:00 AM EDT CALCIUM PHOSPHORUS PRODUCT, ADJUSTED () Routine 11/14/2024 3:00 AM EDT TRANSFERRIN SATURATION Routine 3:00 AM EDT CBC AND DIFFERENTIAL Routine 11/14/2024 3:00 AM EDT ALT Routine 11/14/2024 3:00 AM EDT AST Routine 11/14/2024 3:00 AM EDT PROTEIN, TOTAL, SERUM Routine 11/14/2024 3:00 AM EDT ALKALINE PHOSPHATASE Routine 11/14/2024 3:00 AM EDT PTH, INTACT Routine 11/14/2024 3:00 AM EDT MAGNESIUM Routine 11/14/2024 3:00 AM EDT LACTATE DEHYDROGENASE Routine 11/14/2024 3:00 AM EDT HEMOGLOBIN A1C Routine 11/14/2024 3:00 AM EDT GLUCOSE, RANDOM Routine 11/14/2024 3:00 AM EDT FERRITIN Routine 11/14/2024 3:00 AM EDT CREATININE, SERUM Routine 11/14/2024 3:0 0 AM EDT BILIRUBIN, TOTAL Routine 11/14/2024 3:00 AM EDT LIPID PANEL Routine 11/14/2024 3:00 AM EDT ELECTROLYTE PANEL Routine 11/14/2024 3:0 0 AM EDT HEMOGLOBIN Routine 11/09/2024 3:00 AM EDT HEMOGLOBIN AND HEMATOCRIT, BLOOD Routine 10/31/2024 3:00 AM EDT documented in this encounter Results * (ABNORMAL) Hemoglobin A1c (11/14/2024 3:00 AM EDT) Hemoglobin A1C 8.9(H) <5.7 % [facility] Comment: Methodology: Enzymatic HbA1c (NGSP %) Suggested Diagnosis >6.4% Diabetic 5.7-6.4% Pre-Diabetic <5.7% Non-Diabetic Diabetic Glucose Control Evaluation: Therapeutic action suggested at >8.0% ADA recommends a glycemic goal of <7.0% 11/14/2024 3:00 AM EDT 11/16/2024 4:40 PM EDT Jordan Elaine MD LAB BLOOD ORDERABLES Final Re sult Performing Organization Address [facility] de Phone Number [facility]PS [facility] [address] [place] [address] * (ABNORMAL) TSAT (11/14/2024 3:00 AM EDT) Iron 78 65 - 175 ug/dL [facility] Transferrin 129(L) 215 - 365 mg/dL [facility] TIBC 181(L) 211 - 406 ug/dL [facility] Iron Saturation (TSat) 43 22 - 52 % [facility] 11/14/2024 3:00 AM EDT 11/16/2024 4:40 PM EDT Jordan Elaine MD LAB BLOOD ORDERABLES Final Re sult Performing Organization Address [facility] de Phone Number [facility] [address] [place] [address] * Protein, total (11/14/2024 3:00 AM EDT) Total Protein 7.0 6.4 - 8.9 g/dL [facility] 11/14/2024 3:00 AM EDT 11/16/2024 4:40 PM EDT Jordan Elaine MD LAB BLOOD ORDERABLES Final Re sult Performing Organization Address [facility] de Phone Number [facility] [address] [place] [address] * Electrolyte panel (11/14/2024 3:00 AM EDT) Sodium 140 136 - 145 mEq/L [facility] Potassium 3.6 3.4 - 5.0 mEq/L [facility] Chloride 104 98 - 107 mEq/L [facility] Bicarbonate (CO2) 25 21 - 31 mEq/L [facility] Anion Gap 11 3 - 14 mEq/L [facility] 11/14/2024 3:00 AM EDT 11/16/2024 4:40 PM EDT Jordan Elaine MD LAB BLOOD ORDERABLES Final Re sult Performing Organization Address [facility] de Phone Number [facility] [address] [place] [address] * Magnesium (11/14/2024 3:00 AM EDT) Magnesium 1.9 1.9 - 2.7 mg/dL [facility] 11/14/2024 3:00 AM EDT 11/16/2024 4:40 PM EDT Jordan Elaine MD LAB BLOOD ORDERABLES Final Re sult Performing Organization Address [facility] de Phone Number [facility] [address] [place] [address] * (ABNORMAL) Lipid panel (11/14/2024 3:00 AM EDT) Cholesterol 130 <200 mg/dL [facility] Comment: Optimal: <200 Borderline: 200-239 Higher Risk: >239 Triglycerides 62 <150 mg/dL [facility] Comment: Optimal: <150 Borderline High: 150-199 High: 200-499 Very High: >499 HDL 43(A) >59 mg/dL [facility] Comment: Desirable: >59 Higher Risk: <40 LDL-Calc 75 <100 mg/dL [facility] Comment: Optimal: <100 Above Optimal: 100-129 Borderline High: 130-159 High: 160-189 Very High: >189 VLDL Cholesterol Emmanuel 12 <30 mg/dL [facility] Comment: Optimal: <30 Borderline High: 30-39 High: 40-99 Very High: >99 Chol/HDL Ratio 3.0 <3.3 [facility] Comment: Optimal: <3.3 Higher Risk: >6.2 11/14/2024 3:00 AM EDT 11/16/2024 4:40 PM EDT Jordan Elaine MD LAB BLOOD ORDERABLES Final Re sult Performing Organization Address [facility] de Phone Number [facility] [address] [place] [address] * LIH (11/14/2024 3:00 AM EDT) Lipemia Normal Normal [facility] Icterus Normal Normal [facility] Hemolysis Normal Normal [facility] 11/14/2024 3:00 AM EDT 11/16/2024 4:40 PM EDT Jordan Elaine MD LAB [id number] SOLICITED RESULTS Final Result Performing Organization Address [facility] de Phone Number [facility] [address] [place] [address] * Lactate dehydrogenase (11/14/2024 3:00 AM EDT) LDH 239 120 - 246 U/L [facility] 11/14/2024 3:00 AM EDT 11/16/2024 4:40 PM EDT Jordan Elaine MD LAB BLOOD ORDERABLES Final Re sult Performing Organization Address [facility] de Phone Number [facility] [address] [place] [address] * Glucose, random (11/14/2024 3:00 AM EDT) Glucose 108 74 - 109 mg/dL [facility] 11/14/2024 3:00 AM EDT 11/16/2024 4:40 PM EDT Jordan Elaine MD LAB BLOOD ORDERABLES Final Re sult Performing Organization Address [facility] Co de Phone Number [facility] [address] [place] [address] * (ABNORMAL) Creatinine, serum (11/14/2024 3:00 AM EDT) Creatinine 12.46(H) 0.70 - 1.30 mg/dL [facility] 11/14/2024 3:00 AM EDT 11/16/2024 4:40 PM EDT Jordan Elaine MD LAB BLOOD ORDERABLES Final Re sult Performing Organization Address [facility] de Phone Number [facility] [address] [place] [address] * (ABNORMAL) Bilirubin, total (11/14/2024 3:00 AM EDT) Total Bilirubin 0.2(L) 0.3 - 1.2 mg/dL [facility] 11/14/2024 3:00 AM EDT 11/16/2024 4:40 PM EDT Jordan Elaine MD LAB BLOOD ORDERABLES Final Re sult Performing Organization Address [facility] de Phone Number [facility] [address] [place] [address] * AST (11/14/2024 3:00 AM EDT) AST (SGOT) 17 <34 U/L [facility] 11/14/2024 3:00 AM EDT 11/16/2024 4:40 PM EDT Jordan Elaine MD LAB BLOOD ORDERABLES Final Re sult Performing Organization Address [facility] de Phone Number [facility] [address] [place] [address] * (ABNORMAL) Alkaline phosphatase (11/14/2024 3:00 AM EDT) Alkaline Phosphatase 129(H) 46 - 116 U/L [facility] 11/14/2024 3:00 AM EDT 11/16/2024 4:40 PM EDT Jordan Elaine MD LAB BLOOD ORDERABLES Final Re sult Performing Organization Address [facility] Co de Phone Number [facility] [address] [place] [address] * Calcium Phosphorus Product, Adjusted (11/14/2024 3:00 AM EDT) Albumin 4.4 3.6 - 5.4 g/dL [facility] Calcium 9.5 8.6 - 10.3 mg/dL [facility] Phosphorus, Serum 4.4 2.5 - 5.0 mg/dL [facility] Ca*PO4 41.8 <55.0 mg2/dL2 [facility] Calcium, Adjusted Total 9.5 8.6 - 10.3 mg/dL [facility] CA*PO4 CORRCTD 41.8 <55.0 mg2/dL2 [facility] 11/14/2024 3:00 AM EDT 11/16/2024 4:40 PM EDT Jordan Elaine MD LAB [id number] SOLICITED RESULTS Final Result Performing Organization Address [facility] de Phone Number [facility] [address] [place] [address] * ALT (11/14/2024 3:00 AM EDT) ALT (SGPT) 13 10 - 49 U/L [facility] 11/14/2024 3:00 AM EDT 11/16/2024 4:40 PM EDT Jordan Elaine MD LAB BLOOD ORDERABLES Final Re sult Performing Organization Address [facility] Co de Phone Number [facility] [address] [place] [address] * (ABNORMAL) Ferritin (11/14/2024 3:00 AM EDT) Ferritin 928(H) 22 - 322 ng/mL [facility] 11/14/2024 3:00 AM EDT 11/16/2024 4:40 PM EDT us Jordan Elaine MD LAB BLOOD ORDERABLES Final Re sult Performing Organization Address [facility] Co de Phone Number [facility] [address] [place] [address] * (ABNORMAL) PTH, Intact (11/14/2024 3:00 AM EDT) PTH, Intact 947(H) 160 - 721 pg/mL [facility] Comment: Suggested (KDIGO) ESRD maintenance range is two to nine times the upper normal limit (80.1 pg/mL) for the laboratory. 11/14/2024 3:00 AM EDT 11/16/2024 4:40 PM EDT us Jordan Elaine MD LAB BLOOD ORDERABLES Final Re sult Performing Organization Address [facility] de Phone Number [facility] [address] [place] [address] * (ABNORMAL) Kt/V Natural Log, URR (11/14/2024 3:00 AM EDT) Treatment Time 244 min [facility] Pre-Weight, lb 95.2 kg [facility] Post-Weight, lb 92.9 kg [facility] Ultrafiltration Rate 6 <=13 mL/kg/hr [facility] Comment: Recommend achieving Ultrafiltration Rate (UFR) <=10 mL/kg/hr References: Kai AMEZQUITA et al. Kidney Int. 2010; 79(2):250-257 BUN 47(H) 7 - 25 mg/dL [facility] BUN Post Dialysis 15 7 - 25 mg/dL [facility] UREA REDUCTION RATIO (%) 68 >=65 % [facility] Kt/V Natural Log 1.32 >=1.2 [facility] 11/14/2024 3:00 AM EDT 11/16/2024 4:40 PM EDT us Jordan Elaine MD LAB [id number] SOLICITED RESULTS Final Result [facility] [address] [place] [address] * (ABNORMAL) CBC and Differential (11/14/2024 3:00 AM EDT) Pathologist [facility] DIFFERENTIAL MANUAL, 2 Not Indicated [facility] White Blood Cells 6.1 4.2 - 9.1 K/uL [facility] RBC 3.16(L) 4.63 - 6.08 M/uL [facility] Hgb 9.5(L) 13.7 - 17.5 g/dL [facility] Hemoglobin x 3 28.5(L) 41.1 - 52.5 g/dL [facility] Hematocrit 29.2(L) 40.1 - 51.0 % [facility] MCV 92.4(H) 79.0 - 92.2 fL [facility] MCH 30.1 25.7 - 32.2 pg [facility] MCHC 32.5 32.3 - 36.5 g/dL [facility] Platelets 257 163 - 337 K/uL [facility] RDW 15.8(H) 11.6 - 14.4 % [facility] Neutrophils Relative 57.1 34.0 - 67.9 % [facility] Lymphocytes Relative 23.0 21.8 - 53.1 % [facility] Monocytes 9.4 5.3 - 12.2 % [facility] Eosinophils Relative 8.2(H) 0.8 - 7.0 % [facility] Basophils Relative 1.0 0.2 - 1.2 % [facility] Immature Granulocytes 1.3(H) 0.0 - 1.0 % [facility] 11/14/2024 3:00 AM EDT 11/16/2024 4:40 PM EDT us Jordan Elaine MD LAB BLOOD ORDERABLES Final Re sult [facility] [address] [place] [address] * (ABNORMAL) Hemoglobin (11/09/2024 3:00 AM EDT) Pathologist [facility] Hgb 9.7(L) 13.7 - 17.5 g/dL [facility] Hemoglobin x 3 29.1(L) 41.1 - 52.5 g/dL [facility] 11/09/2024 3:00 AM EDT 11/10/2024 1:00 PM EDT Jordan Elaine MD LAB BLOOD ORDERABLES Final Re sult Performing Organization Address [facility] Co de Phone Number [facility] [address] [place] [address] * (ABNORMAL) Hemoglobin and hematocrit (10/31/2024 3:00 AM EDT) Hgb 9.6(L) 13.7 - 17.5 g/dL [facility] Hematocrit 29.3(L) 40.1 - 51.0 % [facility] Hemoglobin x 3 28.8(L) 41.1 - 52.5 g/dL [facility] 10/31/2024 3:00 AM EDT 11/01/2024 1:22 PM EDT Jordan Elaine MD LAB BLOOD ORDERABLES Final Re sult Performing Organization Address [facility] de Phone Number [facility] [address] [place] [address] documented in this encounter Visit Diagnoses Not on filedocumented in this encounter Care Teams Environmental Aid Relationship Specialty Start Date End Date Jordan Woo MD [address] [place] [address] PCP - General Internal Medicine 06/03/21 documented as of this encounter
--- OUTSIDE RECORDS SUMMARY | 2025-06-27 09:52 | XMS_ITS | Clinical Summary ---
Author Organization 175 [facility] Address [address] [place] [address] Phone Care Team Providers Care Technical Mgr Name Role Phone Jessica Meraz Primary Care Provider [phone] Allergies No known active allergies Medications polyethylene [...] daily. Active CARVEDILOL ORAL Take by mouth. Activ e insulin aspart (NovoLOG U-100 Insulin aspart) 100 unit/mL injection Inject into the skin 3 times daily (before meals). Active metoclopramide (REGLAN) 5 mg tablet Take 1 Tablet by mouth 4 times daily. Active omeprazole (PriLOSEC) [address] capsule Take 1 Capsule by mouth daily. Active cyclobenzaprin e (FLEXERIL) 10 mg tabletIndicati ons:Cervical strain, acute, initial encounter,Stra in of lumbar region, initial encounter Take 1 tablet (10 mg total) by mouth 3 (three) times a day if needed for muscle spasms for up to 7 days. 15 tablet 5 Active famotidine (PEPCID) 20 mg tablet Take 1 tablet (20 mg total) by mouth 2 (two) times a day for 15 days. 30 tablet 5 05/28/20 25 Active Problems Problem Noted Date Diagnosed Date Hematuria 12/11/2020 Microscopic hematuria 12/11/2020 CKD (chronic kidney disease) 12/11/2020 Overview (07/04/2024): Never saw evening or night nurse supervisor, no records from PCP OF 12/11/20 Encounters Date Type Department Care Team Description 06/06/2025 9:30 AM EDT Office Visit Orthopedic Surgery - [facility] [address] [place] [address] [address] [place] [address] Elpidio Villegas DPM Hallux rigidus of left [...] callosities; Type 1 diabetes mellitus with mononeuropathy (CMS/HCC V24, CMS/HCC V28) 05/13/2025 11:20 AM EDT - 05/13/2025 4:09 PM EDT Emergency [facility] Emergency [address] [place] [phone] Mary Capellan MD Viral gastroenteritis (Primary Dx); Nausea and vomiting, unspecified vomiting type Discharge Disposition: Home or Self Care from Last 3 Months Medical History Medical History Date Comments Urinary tract infection DX:Urina ry tract infection Microscopic hematuria DX:Microsc opic hematuria Diabetes mellitus ([facility] V 24, [facility] V28) DX:Diabetes mellitus ([facility]); COMMENT: Type 1, 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 at [facility] CKD (chronic kidney disease) DX: CKD (chronic kidney disease); COMMENT: Never saw evening or night nurse supervisor, no records from PCP OF 12/11/20 Social [...] Sign Reading Time Taken Comments Blood Pressure 124/90 05/13/2025 4:07 PM EDT Pulse 90 05/13/2025 4:07 PM EDT Temperature 37.1 C (98.8 F) 05/13/2025 4:07 PM EDT Respiratory Rate 18 05/13/2025 4:07 PM EDT Oxygen Saturation 99% 05/13/2025 4:07 PM EDT Inhaled Oxygen Concentration - - Weight 95.3 kg (210 lb 1.6 oz) 06/06/2025 9:51 A M EDT Height 185.4 cm (6' 0.99 ) 06/06/2025 9:51 AM ED T Body Mass Index 27.73 06/06/2025 9:51 AM EDT Plan of Treatment Upcoming Encounters Date Type Department Care Team (Late st Contact Info) Description 09/10/2025 10:30 AM EST Office Visit Orthopedic Surgery - [facility] [address] [address] Elpidio Villegas, DPM [address] [phone] Health Maintenance Due Date Last Done Comments Diabetes: Annual Foot Exam 2000 Diabetes: Annual Retina Eye Exam 2000 HPV Vaccines (1 - 3-dose SCDM series) 2017 HIV Screening 07/13/2022 Medicare Annual Wellness Visit 07/13/2022 Social Influencers of Health Screening 07/13/2022 COVID-19 Vaccine (2 - Moderna risk series) 10/26/2023 09/28/2023 Depression Screening 08/15/2024 Influenza Vaccine (#1) 2025 , 05/19/2022, 05/09/2021, Additional history exists Diabetes: Annual Urine Albumin-Creatinine Ratio (uACR) 05/17/2025 05/17/2024, 05/22/2021, 12/11/2020 Diabetes: Blood Sugar Control Test (HGBA1C) 11/13/2025 05/15/2025, 05/15/2025, 02/20/2025, Additional history exists Diabetes: Annual GFR (Glomerular Filtration Rate) 05/13/2026 05/13/2025, 12/17/2024, 09/03/2024, Additional history exists Hypertension/CHF/CAD Annual BMP Blood Test 05/13/2026 05/13/2025, 12/17/2024, 09/03/2024, Additional history exists Cholesterol Screening (Lipid Panel) 05/15/2030 05/15/2025, 02/20/2025, 11/14/2024, Additional history exists DTaP,Tdap,and Td Vaccines (2 - Td or Tdap) 05/03/2033 05/03/2023 RSV Immunization Adult Patients (1 - 1-dose 75+ series) 2065 Pneumococcal Vaccine: Pediatrics (0 to 5 Years) and At-Risk Patients (6 to 49 Years) Completed 05/03/2023, 04/21/2022, 02/21/2015 Hepatitis C Screening Completed 05/04/2023 Hepatitis [...] Procedure Name Priority Date/Time Associated Diagnosis Comments ECG ANNOTATED 05/14/2025 XR CHEST 2 VIEWS STAT 05/13/2025 2:05 PM EDT CBC WITH AUTO DIFFERENTIAL STAT 05/13/2025 11:30 AM EDT TROPONIN I HIGH SENSITIVITY STAT 05/13/2025 11:30 AM EDT B-TYPE NATRIURETIC PEPTIDE STAT 05/13/2025 11:30 AM EDT MAGNESIUM STAT 05/13/2025 11:30 AM EDT LIPASE STAT 05/13/2025 11:30 AM EDT COMPREHENSIVE METABOLIC PANEL STAT 05/13/2025 11:30 AM EDT CBC AND DIFFERENTIAL STAT 05/13/2025 11:30 AM EDT ECG 12-LEAD STAT 05/13/2025 11:15 AM EDT HM URINE ALBUMIN CREATININE RATIO Routine 12/11/2020 from Last 3 Months or Most Recently Relevant to Health Maintenance Results * ECG-Annotated (05/14/2025) us Provider Onbase MD ECG ORDERABLES Final Result * XR Chest 2 Views (05/13/2025 2:05 PM EDT) Anatomical Region Laterality Modality Body Radiographic Maria Isabel ging 05/13/2025 3:11 PM EDT Impressions 05/13/2025 3:11 PM EDT FINDINGS/IMPRESSION: Normal heart size and pulmonary vascularity. Lungs are clear and costophrenic angles are sharp. No acute osseous abnormality. -------- FINAL REPORT -------- Dictated By: Narinder Taveras Dictated Date: 05/13/2025 15:11 ET Assigned Physician: Narinder Taveras Reviewed and Electronically Signed By: Narinder Taveras Signed Date: 05/13/2025 15:11 ET Workstation ID: [id number] Transcribed By: Self Edit Transcribed Date: 05/13/2025 15:11 ET Narrative 05/13/2025 3:11 PM EDT XR CHEST 2 VIEWS INDICATION: chest pain TECHNIQUE: XR CHEST 2 VIEWS COMPARISON: No priors available. Procedure Note Narinder Taveras MD - 05/13/2025 XR CHEST 2 VIEWS INDICATION: chest pain TECHNIQUE: XR CHEST 2 VIEWS COMPARISON: No priors available. IMPRESSION: FINDINGS/IMPRESSION: Normal heart size and pulmonary vascularity. Lungsare clear and costophrenic angles are sharp. No acute osseousabnormality. -------- FINAL REPORT -------- Dictated By: Narinder Taveras Dictated Date: 05/13/2025 15:11 ET Assigned Physician: Narinder Taveras Reviewed and Electronically Signed By: Narinder Taveras Signed Date: 05/13/2025 15:11 ET Workstation ID: [id number] Transcribed By: Self Edit Transcribed Date: 05/13/2025 15:11 ET us Mary Capellan MD IMG XR PROCEDURES Final Result * Troponin I high sensitivity (05/13/2025 11:30 AM EDT) Pathologist [facility] High Sensitivity Troponin I 10 <=79 ng/L LAB CHEMISTRY METHOD 05/13/2025 1:[address] [facility] Blood Venous blood specimen / Unknown Venipuncture / Unknown 05/13/2025 11:30 AM EDT 05/13/2025 12:10 PM EDT Narrative [facility] - 05/13/2025 1:14 PM EDT High levels of biotin in samples may falsely decrease hsTroponin values. Use caution when interpreting hsTroponin results in patients taking biotin who exhibit renal impairment (eGFR <60) or in patients taking more than 20 mg/day of biotin. us Mary Capellan MD LAB BLOOD ORDERABLES Final Res ult [facility] [address] [place] [address], [place] [phone] * (ABNORMAL) CBC auto differential (05/13/2025 11:30 AM EDT) WBC 8.9 4.8 - 10.8 K/mcL LAB HEMETOLOGY METHOD 05/13/2025 12:48 PM EDT [facility] RBC 3.60(L) 4.50 - 5.50 M/mcL LAB HEMETOLOGY METHOD 05/13/2025 12:48 PM EDT [facility] Hemoglobin 10.7(L) 13.5 - 17.5 g/dL LAB HEMETOLOGY METHOD 05/13/2025 12:48 PM EDT [facility] Hematocrit 33.2(L) 42.0 - 54.0 % LAB HEMETOLOGY METHOD 05/13/2025 12:48 PM EDT [facility] MCV 91.5 79.0 - 98.0 FL LAB HEMETOLOGY METHOD 05/13/2025 12:48 PM EDT [facility] MCH 29.5 27.0 - 32.0 pcg LAB HEMETOLOGY METHOD 05/13/2025 12:48 PM EDT [facility] MCHC 32.2 32.0 - 37.0 g/dL LAB HEMETOLOGY METHOD 05/13/2025 12:48 PM EDT [facility] RDW 15.9(H) 11.0 - 15.0 % LAB HEMETOLOGY METHOD 05/13/2025 12:48 PM EDT [facility] Platelets 293 130 - 400 K/mcL LAB HEMETOLOGY METHOD [facility]/13[facility]25 [facility] MPV 10.5 7.0 - 11.0 FL LAB HEMETOLOGY METHOD 05/13/2025 12:[facility] NRBC 0.0 <1.0 % LAB HEMETOLOGY METHOD 05/13/2025 12:[facility] NRBC Absolute 0.00 <0.10 K/mcL LAB HEMETOLOGY METHOD 05/13/2025 12:48 [facility] Neutrophils Relative 74.1 % LAB HEMETOLOGY METHOD 05/13/2025 12:48 PM [facility] Lymphocytes Relative 13.4 % LAB HEMETOLOGY METHOD 05/13/2025 12:48 PM [facility] Monocytes Relative 8.2 % LAB HEMETOLOGY METHOD 05/13/2025 12:48 PM [facility] Eosinophils Relative 3.0 % LAB HEMETOLOGY METHOD 05/13/2025 12:48 PM [facility] Basophils Relative 0.7 % LAB HEMETOLOGY METHOD 05/13/2025 12:48 PM [facility] Immature Granulocytes Relative 0.6 % LAB HEMETOLOGY METHOD 05/13/2025 12:48 PM [facility] Neutrophils Absolute 6.57 1.50 - 7.00 K/mcL LAB HEMETOLOGY METHOD 05/13/2025 12:[facility] Lymphocytes Absolute 1.19 1.00 - 5.00 K/mcL LAB HEMETOLOGY METHOD 05/13/2025 12:48 [facility] Monocytes Absolute 0.73 0.20 - 1.00 K/mcL LAB HEMETOLOGY METHOD 05/13/2025 12:48 PM EDT [facility] Eosinophils Absolute 0.27 0.00 - 0.50 K/[facility] LAB HEMETOLOGY METHOD 05/13/2025 12:48 PM EDT [facility] Basophils Absolute 0.06 0.00 - 0.20 K/mcL LAB HEMETOLOGY METHOD 05/13/2025 12:48 PM EDT [facility] Immature Granulocytes Absolute 0.05(H) 0.00 - 0.03 K/[facility] LAB HEMETOLOGY METHOD 05/13/2025 12:48 PM EDT [facility] Blood Venous blood specimen / Unknown Venipuncture / Unknown 05/13/2025 11:30 AM EDT 05/13/2025 12:10 PM EDT us Mary Capellan MD LAB BLOOD ORDERABLES Final Res ult [facility] [address] [place] [address], [place] [phone] * B-type natriuretic peptide (05/13/2025 11:30 AM EDT) [facility] BNP 67 <=100 pcg/mL LAB CHEMISTRY METHOD 05/13/2025 1:19 PM EDT [facility] Blood Venous blood specimen / Unknown Venipuncture / Unknown 05/13/2025 11:30 AM EDT 05/13/2025 12:10 PM EDT us Mary Capellan MD LAB BLOOD ORDERABLES Final Res ult [facility] [address] [place] [address], [place] [phone] * Magnesium (05/13/2025 11:30 AM EDT) Pathologist [facility] Magnesium 2.0 1.9 - 2.6 mg/dL LAB CHEMISTRY METHOD 05/13/2025 12:54 PM EDT [facility] Comment:Hemolysis present Blood Venous blood specimen / Unknown Venipuncture / Unknown 05/13/2025 11:30 AM EDT 05/13/2025 12:10 PM EDT us Mary Capellan MD LAB BLOOD ORDERABLES Final Res ult Performing Organization Address City/[facility]/ZIP Co de Phone Number [facility] [address] [place] [address], [place] [phone] * Lipase (05/13/2025 11:30 AM EDT) [facility] Lipase 35 13 - 75 unit/L LAB CHEMISTRY METHOD 05/13/2025 12:54 PM EDT [facility] Blood Venous blood specimen / Unknown Venipuncture / Unknown 05/13/2025 11:30 AM EDT 05/13/2025 12:10 PM EDT us Mary Capellan MD LAB BLOOD ORDERABLES Final Res ult Performing Organization Address [facility]/ZIP Co de Phone Number [facility] [address] [place] [address], [place] [phone] * (ABNORMAL) Comprehensive metabolic panel (05/13/2025 11:30 AM EDT) [facility] Sodium 136 133 - 145 mmol/L LAB CHEMISTRY METHOD 05/13/2025 12:57 PM EDT [facility] Potassium 4.4 3.5 - 5.5 mmol/L LAB CHEMISTRY METHOD 05/13/2025 12:57 PM EDT [facility] Comment:Hemolysis present Chloride 98 96 - 110 mmol/L LAB CHEMISTRY METHOD 05/13/2025 12:57 PM EDT [facility] CO2 25 21 - 32 mmol/L LAB CHEMISTRY METHOD 05/13/2025 12:57 PM [facility] Anion Gap 13(H) 3 - 11 LAB CHEMISTRY METHOD 05/13/2025 12:57 PM [facility] Glucose 232(H) 70 - 100 mg/dL LAB CHEMISTRY METHOD 05/13/2025 12:57 PM [facility] BUN 19 5 - 25 mg/dL LAB CHEMISTRY METHOD 05/13/2025 12:57 PM [facility] Creatinine 7.93(H) 0.70 - 1.30 mg/dL LAB CHEMISTRY METHOD 05/13/2025 12:57 PM [facility] eGFR 8(L) >=60 mL/min/1. 73m2 LAB CHEMISTRY METHOD 05/13/2025 12:57 PM [facility] Comment:Calculation based on the Chronic Kidney Disease Epidemiology Collaboration (CKD-EPI) equation refit without adjustment for race. BUN/Creatinine Ratio 2.4 LAB CHEMISTRY METHOD 05/13/2025 12:57 PM [facility] Calcium 9.6 8.5 - 10.5 mg/dL LAB CHEMISTRY METHOD 05/13/2025 12:57 PM [facility] AST (SGOT) 18 10 - 42 unit/L LAB CHEMISTRY METHOD 05/13/2025 12:57 PM [facility] Comment:Hemolysis present ALT (SGPT) 21 10 - 60 unit/L LAB CHEMISTRY METHOD 05/13/2025 12:57 PM [facility] Alkaline Phosphatase 169(H) 42 - 121 unit/L LAB CHEMISTRY METHOD 05/13/2025 12:57 PM [facility] Total Protein 7.6 6.0 - 8.0 g/dL LAB CHEMISTRY METHOD 05/13/2025 12:57 PM [facility] Albumin 4.1 3.2 - 5.0 g/dL LAB CHEMISTRY METHOD 05/13/2025 12:57 PM [facility] Total Bilirubin 0.6 0.0 - 1.4 mg/dL LAB CHEMISTRY METHOD 05/13/2025 12:57 PM EDT [facility] Blood Venous blood specimen / Unknown Venipuncture / Unknown 05/13/2025 11:30 AM EDT 05/13/2025 12:10 PM EDT Mary Capellan MD LAB BLOOD ORDERABLES Final Res ult [facility]) [facility] [address] [place] [address], [place] [phone] * ECG 12 lead (05/13/2025 11:15 AM EDT) Ventricular Rate ECG 94 BPM GEMUSE Atrial Rate 94 BPM GEMUSE P-R Interval 182 ms GEMUSE QRS Duration 90 ms GEMUSE Q-T Interval 368 ms GEMUSE QTc 460 ms GEMUSE P Wave [place] 58 degrees GEMUSE R [place] -19 degrees GEMUSE T [place] 23 degrees GEMUSE ECG Interpretation Normal sinus rhythm Normal ECG When compared with ECG of 03-SEP-2024 07:06, Vent. rate has increased BY 32 BPM Confirmed by MD Artie, [place] ([id number]) on 05/14/2025 8:37:04 AM GEMUSE 05/13/2025 11:1 5 AM EDT 05/14/2025 8:37 AM EDT Mary Capellan MD ECG ORDERABLES Final Result Performing Organization Address City/[facility]/ZIP Co de Phone Number GEMUSE * HM Urine Albumin Creatinine Ratio (12/11/2020) Urine Albumin Creatinine Ratio Abstracted Camilo Perales MD HEALTH MAINTENANCE Final Result from Last 3 Months or Most Recently Relevant to Health Maintenance Insurance MEDICARE [place] GENER[place] MEDIC[place] Advance Directives Documents on File Type Date Recorded Patient Professional Programmer Analyst Expl anation Health Care Decision (hx) 10/12/2021 AD NAZARIO DIRECTIVE Health Care Decision (hx) 10/08/2021 AD NAZARIO DIRECTIVE Health Care Decision (hx) 10/08/2021 AD NAZARIO DIRECTIVE Health Care Decision (hx) 10/08/2021 AD NAZARIO DIRECTIVE Health Care Decision (hx) 10/08/2021 AD NAZARIO DIRECTIVE Health Care Decision (hx) 10/08/2021 AD NAZARIO DIRECTIVE Health Care Decision (hx) 10/08/2021 AD NAZARIO DIRECTIVE Care Teams Technical Mgr Relationship Specialty Start Date End Date Jessica Meraz PA [address] [place] [address] PCP - General 05/16/24
== END 2025-06-27 09:39 | disposition home or self-care (01) ==
LOC: HO.HOS 09:04
PROVIDERS: PCP Physician Assistant Medical; Visit Provider Physician Assistant
DX: M25.562 Pain in left knee (principal); S83.282A Other tear of lateral meniscus, current injury, left knee, initial encounter; E11.69 Type 2 diabetes mellitus with other specified complication
CPT/HCPCS: 99213; G2211

== ENCOUNTER 2025-07-25 14:26 | Outpatient (AMB) | payer OTHER, MEDICARE, MEDICAID, SELFPAY ==
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
--- OUTSIDE RECORDS SUMMARY | 2025-07-25 22:06 | XMS_ITS | Clinical Summary ---
Author Organization 175 [facility] Address [address] [place] [address] Phone Care Team Providers Care Sales Clerk Food Name Role Phone Jessica Meraz Primary Care Provider [phone] Allergies No known active allergies Medications polyethylene [...] kidney disease) 12/11/2020 Overview (07/04/2024): Never saw command center analyst, no records from PCP OF 12/11/20 Encounters Date Type Department Care Team Description 06/06/2025 9:30 AM EDT Office Visit Orthopedic Surgery - [address] [phone] Elpidio Villegas DPM Hallux rigidus of left [...] callosities; Type 1 diabetes mellitus with mononeuropathy ([facility] V24, [facility] V28) 05/13/2025 11:20 AM EDT - 05/13/2025 4:09 PM EDT Emergency [facility] Emergency [address] [place] [phone] Mary Capellan MD Viral gastroenteritis (Primary Dx); Nausea and vomiting, unspecified vomiting type Discharge Disposition: Home or Self Care from Last 3 Months Medical History Medical History Date Comments Urinary tract infection DX:Urina ry tract infection Microscopic hematuria DX:Microsc opic hematuria Diabetes mellitus ([facility] V 24, [facility] V28) DX:Diabetes mellitus (HCC); COMMENT: Type 1, followed by commercial or institutional cleaner at [facility] CKD (chronic kidney disease) DX: CKD (chronic kidney disease); COMMENT: Never saw command center analyst, no records from PCP OF 12/11/20 Social [...] Orientation Straight 09/05/2024 11 :59 AM EST Last Filed Vital Signs Vital Sign Reading [...] AM EST Office Visit Orthopedic Surgery - [place] [address] [phone] Elpidio Villegas, CLAUS [address] [phone] Health Maintenance Due Date Last Done Comments [...] Signed Date: 05/13/2025 15:11 ET Workstation ID: [id number] Transcribed By: Self Edit Transcribed Date: 05/13/2025 [...] Signed Date: 05/13/2025 15:11 ET Workstation ID: [id number] Transcribed By: Self Edit Transcribed Date: 05/13/2025 15:11 ET us Mary Capellan MD IMG XR PROCEDURES Final Result * Troponin I high sensitivity (05/13/2025 11:30 AM EDT) [facility] High Sensitivity Troponin I 10 <=79 ng/L LAB CHEMISTRY METHOD 05/13/2025 1:14 PM EDT [facility] Blood Venous blood specimen / Unknown Venipuncture / Unknown 05/13/2025 11:30 AM EDT 05/13/2025 12:10 PM EDT Narrative [facility] - 05/13/2025 1:14 PM EDT High levels of biotin in samples may falsely decrease hsTroponin values. Use caution when interpreting hsTroponin results in patients taking biotin who exhibit renal impairment (eGFR <60) or in patients taking more than 20 mg/day of biotin. us Mary Capellan MD LAB BLOOD ORDERABLES Final Res ult [facility] [address] [place] [address], [place] [phone] * (ABNORMAL) CBC auto differential (05/13/2025 11:30 AM EDT) WBC 8.9 4.8 - 10.8 K/mcL LAB HEMETOLOGY METHOD 05/13/2025 12:48 PM EDT [facility] RBC 3.60(L) 4.50 - 5.50 M/mcL LAB HEMETOLOGY METHOD 05/13/2025 12:48 PM EDT [facility] Hemoglobin 10.7(L) 13.5 - 17.5 g/dL LAB HEMETOLOGY METHOD 05/13/2025 12:48 PM EDT [facility] Hematocrit 33.2(L) 42.0 - 54.0 % LAB HEMETOLOGY METHOD 05/13/2025 12:48 PM EDT [facility] MCV 91.5 79.0 - 98.0 FL LAB HEMETOLOGY METHOD 05/13/2025 12:48 PM EDT [facility] MCH 29.5 27.0 - 32.0 pcg LAB HEMETOLOGY METHOD 05/13/2025 12:48 PM EDT [facility] MCHC 32.2 32.0 - 37.0 g/dL LAB HEMETOLOGY METHOD 05/13/2025 12:48 PM EDT [facility] RDW 15.9(H) 11.0 - 15.0 % LAB [facility]ETOLOGY [facility] Plate[facility] 293 130 - 400 K/mcL LAB HEMETOLOGY METHOD 05/13/2025 12:48 PM EDT [facility] MPV 10.5 7.0 - 11.0 FL LAB HEMETOLOGY METHOD 05/13/2025 12:48 PM EDT [facility] NRBC 0.0 <1.0 % LAB HEMETOLOGY METHOD 05/13[facility]2025 12:[facility] NRBC Absolute 0.00 <0.10 K/mcL LAB HEMETOLOGY METHOD 05/13/2025 12:48 PM EDT [facility] Neutrophils Relative 74.1 % LAB HEMETOLOGY METHOD 05/13[facility]2025 12:[facility] Lymphocytes Relative 13.4 % LAB HEMETOLOGY METHOD 05/13/2025 12:[address] [facility] Monocytes Relative 8.2 % LAB HEMETOLOGY METHOD 05/13/2025 12:[facility] Eosinophils Relative 3.0 % LAB HEMETOLOGY METHOD 05/13/2025 12:[address] [facility] Basophils Relative 0.7 % LAB HEMETOLOGY METHOD 05/13/2025 12:[address] [facility] Immature Granulocytes Relative 0.6 % LAB HEMETOLOGY METHOD 05/13/2025 12:[address] [facility] Neutrophils Absolute 6.57 1.50 - 7.00 K/mcL LAB HEMETOLOGY METHOD 05/13/2025 12:48 PM EDT [facility] Lymphocytes Absolute 1.19 1.00 - 5.00 K/mcL LAB HEMETOLOGY METHOD 05/13/2025 12:[facility] Monocytes Absolute 0.73 0.20 - 1.00 K/mcL LAB HEMETOLOGY METHOD 05/13/2025 12:[facility] Eosinophils Absolute 0.27 0.00 - 0.50 K/mcL LAB HEMETOLOGY METHOD 05/13/2025 12:48 PM EDT [facility] Basophils Absolute 0.06 0.00 - 0.20 K/[facility] LAB HEMETOLOGY METHOD 05/13/2025 12:48 PM EDT [facility] Immature Granulocytes Absolute 0.05(H) 0.00 - 0.03 K/[facility] LAB HEMETOLOGY METHOD 05/13/2025 12:48 PM EDT [facility] Blood Venous blood specimen / Unknown Venipuncture / Unknown 05/13/2025 11:30 AM EDT 05/13/2025 12:10 PM EDT us Mary Capellan MD LAB BLOOD ORDERABLES Final Res ult Performing Organization Address [facility]/ZIP Co de Phone Number [facility] [address] [place] [address], * B-type natriuretic peptide (05/13/2025 11:30 AM EDT) BNP 67 <=100 pcg/mL LAB CHEMISTRY METHOD 05/13/2025 1:19 PM EDT [facility] Blood Venous blood specimen / Unknown Venipuncture / Unknown 05/13/2025 11:30 AM EDT 05/13/2025 12:10 PM EDT us Mary Capellan MD LAB BLOOD ORDERABLES Final Res ult [facility] [address] [place] [address], [place] [phone] * Magnesium (05/13/2025 11:30 AM EDT) Magnesium 2.0 1.9 - 2.6 mg/dL LAB CHEMISTRY METHOD 05/13/2025 12:54 PM EDT [facility] Comment:Hemolysis present Blood Venous blood specimen / Unknown Venipuncture / Unknown 05/13/2025 11:30 AM EDT 05/13/2025 12:10 PM EDT us Mary Capellan MD LAB BLOOD ORDERABLES Final Res ult [facility] [address] [place] [address], [place] [phone] * Lipase (05/13/2025 11:30 AM EDT) Pathologist [facility] [place] Lipase 35 13 - 75 unit/L LAB CHEMISTRY METHOD 05/13/2025 12:54 PM EDT [facility] Blood Venous blood specimen / Unknown Venipuncture / Unknown 05/13/2025 11:30 AM EDT 05/13/2025 12:10 PM EDT us Mary Capellan MD LAB BLOOD ORDERABLES Final Res ult [facility] [address] [place] [address], [place] [phone] * (ABNORMAL) Comprehensive metabolic panel (05/13/2025 11:30 AM EDT) Pathologist [facility] Sodium 136 133 - 145 mmol/L LAB CHEMISTRY METHOD 05/13/2025 12:57 PM EDT [facility] Potassium 4.4 3.5 - 5.5 mmol/L LAB CHEMISTRY METHOD 05/13/2025 12:57 PM EDT [facility] Comment:Hemolysis present Chloride 98 96 - 110 mmol/L LAB CHEMISTRY METHOD 05/13/2025 12:57 PM EDT [facility] CO2 25 21 - 32 mmol/L LAB CHEMISTRY METHOD 05/13/2025 12:57 PM EDT [facility] Anion Gap 13(H) 3 - 11 LAB CHEMISTRY METHOD 05/13/2025 12:57 PM EDT [facility] Glucose 232(H) 70 - 100 mg/dL LAB CHEMISTRY METHOD 05/13/2025 12:[address] [facility] BUN 19 5 - 25 mg/dL LAB CHEMISTRY METHOD 05/13/2025 12:[address] [facility] Creatinine 7.93(H) 0.70 - 1.30 mg/dL LAB CHEMISTRY METHOD 05/13/2025 12:[address] [facility] eGFR 8(L) >=60 mL/min/1. 73m2 LAB CHEMISTRY METHOD 05/13/2025 12:[address] [facility] Comment:Calculation based on the Chronic Kidney Disease Epidemiology Collaboration (CKD-EPI) equation refit without adjustment for race. BUN/Creatinine Ratio 2.4 LAB CHEMISTRY METHOD 05/13/2025 12:[address] [facility] Calcium 9.6 8.5 - 10.5 mg/dL LAB CHEMISTRY METHOD 05/13/2025 12:[address] [facility] AST (SGOT) 18 10 - 42 unit/L LAB CHEMISTRY METHOD 05/13/2025 12:[address] [facility] Comment:Hemolysis present ALT (SGPT) 21 10 - 60 unit/L LAB CHEMISTRY METHOD 05/13/2025 12:[address] [facility] Alkaline Phosphatase 169(H) 42 - 121 unit/L LAB CHEMISTRY METHOD 05/13/2025 12:[address] [facility] Total Protein 7.6 6.0 - 8.0 g/dL LAB CHEMISTRY METHOD 05/13/2025 12:[address] [facility] Albumin 4.1 3.2 - 5.0 g/dL LAB CHEMISTRY METHOD 05/13/2025 12:[address] [facility] Total Bilirubin 0.6 0.0 - 1.4 mg/dL LAB CHEMISTRY METHOD 05/13/2025 12:[address] [facility] Blood Venous blood specimen / Unknown Venipuncture / Unknown 05/13/2025 11:30 AM EDT 05/13/2025 12:10 PM EDT Mary Capellan MD LAB BLOOD ORDERABLES Final Res ult [facility] [address] [place] [address], * ECG 12 lead (05/13/2025 11:15 AM EDT) Ventricular Rate ECG 94 BPM GEMUSE Atrial Rate 94 BPM GEMUSE P-R Interval 182 ms GEMUSE QRS Duration 90 ms GEMUSE Q-T Interval 368 ms GEMUSE QTc 460 ms GEMUSE P Wave [place] 58 degrees GEMUSE R [place] -19 degrees GEMUSE T [place] 23 degrees GEMUSE ECG Interpretation Normal sinus rhythm Normal ECG When compared with ECG of 03-SEP-2024 07:06, Vent. rate has increased BY 32 BPM Confirmed by MD Artie, [place] ([id number]) on 05/14/2025 8:37:04 AM GEMUSE 05/13/2025 11:1 5 AM EDT 05/14/2025 8:37 AM EDT Mary Capellan MD ECG ORDERABLES Final Result Performing Organization Address City/[facility]/ZIP Co de Phone Number GEMUSE * HM Urine Albumin Creatinine Ratio (12/11/2020) Pathologist [facility] Urine Albumin Creatinine Ratio Abstracted Historical Provider HEALTH MAINTENANCE Final Result from Last 3 Months or Most Recently Relevant to Health Maintenance Insurance [place] [employer] [place] Advance Directives Documents on File Type Date Recorded 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
== END 2025-07-25 15:45 | disposition home or self-care (01) ==
LOC: HO.HOS 14:26
PROVIDERS: PCP Physician Assistant Medical; Visit Provider Orthopaedic Surgery
DX: S83.282A Other tear of lateral meniscus, current injury, left knee, initial encounter (principal)
CPT/HCPCS: 99214

== ENCOUNTER 2025-08-14 13:01 | Outpatient (AMB) | payer OTHER, MEDICARE, MEDICAID, SELFPAY ==
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
[2025-08-14 13:16] VITALS: BMI 27.8
--- OUTSIDE RECORDS SUMMARY | 2025-08-14 14:31 | XMS_ITS | Clinical Summary ---
Author Organization [facility] Address [address] [facility] [address] [place] [address] Phone Care Team Providers Care Blurb Writer Name Role Phone Jordan Woo MD Primary Care Provider [phone] Allergies No known active allergies Medications insulin glargine (LANTUS) 100 UNIT/ML injection Inject 20 Units under the skin Active Continuous Blood Gluc Sensor (Dexcom G6 Sensor) misc USE TO CONTINUOUSLY MONITOR BLOOD GLUCOSE LEVELS 1 Active Continuous Blood Gluc Transmit (Dexcom G6 Transmitter) misc USE DIRECTED 1 Active ciprofloxacin (CIPRO) 500 MG tablet Take 500 mg by mouth 1 (one) time each day For 7 days 2 Active Continuous Blood Gluc Drafting Layout Man (Dexcom G6 Drafting Layout Man) device 2 Active NovoLOG FLEXPEN 100 UNIT/ML injection INJECT 2 TO 20 UNITS WITH EACH MEAL BASED ON SLDING SCALE. MAX 50 UNITS DAILY 2 Active oxyCODONE (ROXICODONE) 5 MG immediate release tablet TAKE 1 TABLET BY MOUTH EVERY 4 HOURS NEEDED FOR PAIN 2 Active NIFEdipine XL (PROCARDIA XL) 30 MG 24 hr tablet Take 1 tablet (30 mg total) by mouth 1 (one) time each day Do not crush, chew, or split. 90 tablet 3 2 Active isosorbide mononitrate (IMDUR) 30 MG 24 hr tablet Take 1 tablet (30 mg total) by mouth 1 (one) time each day 90 tablet 3 4 Active amLODIPine (NORVASC) 5 MG tablet Take 1 tablet (5 mg total) by mouth 1 (one) time each day 90 tablet 3 5 10/05/19 26 Active losartan (Cozaar) 50 MG tablet Take 1 tablet (50 mg total) by mouth 1 (one) time each day 90 tablet 3 5 11/23/19 26 Active B rojqvnx-G-bmklt acid 1 MG capsule Take 1 capsule by mouth 1 (one) time each day 30 each 11 5 Active omeprazole (PriLOSEC) [address] capsule Take 1 capsule (40 mg total) by mouth 1 (one) time each day Do not crush or chew. 30 capsule 11 5 11/23/19 26 Active Melatonin 10 MG tablet Take 10 mg by mouth every night 30 tablet 11 5 11/23/19 26 Active ondansetron ODT (ZOFRAN-ODT) 4 MG dispersible tablet Take 1 tablet (4 mg total) by mouth every 8 (eight) hours if needed for nausea or vomiting 20 tablet 5 Active carvedilol (COREG) 25 MG tablet Take 1 tablet (25 mg total) by mouth in the morning and 1 tablet (25 mg total) in the evening. 60 tablet 11 5 Active metoclopramide (Reglan) 5 MG tablet Take 1 tablet (5 mg total) by mouth in the morning and 1 tablet (5 mg total) at noon and 1 tablet (5 mg total) in the evening. Take with meals. 180 tablet 3 5 Active pantoprazole (Protonix) 40 MG EC tablet Take 1 tablet (40 mg total) by mouth in the morning and 1 tablet (40 mg total) in the evening. Do not crush, chew, or split. 60 tablet 11 5 06/03/20 26 Active Active Problems Problem Noted Date Diagnosed [...] Encounters Date Type Department Care Team Description 08/13/2025 Treatment [facility] [address] [phone] Jordan Elaine MD End stage renal disease; Dependence on renal dialysis 08/06/2025 Treatment [facility] [address] [phone] Jordan Elaine MD End stage renal disease; Dependence on renal dialysis 07/29/2025 Treatment [facility] [address] [phone] Jordan Elaine MD End stage renal disease; Dependence on renal dialysis 07/22/2025 Treatment [facility] [address] [phone] Jordan Elaine MD End stage renal disease; Dependence on renal dialysis 07/15/2025 Treatment [facility] [address] [phone] Jordan Elaine MD End stage renal disease; Dependence on renal dialysis 07/01/2025 Treatment [facility] [address] [phone] Jordan Elaine MD End stage renal disease; Dependence on renal dialysis 06/28/2025 Treatment [facility] [address] [phone] Jordan Elaine MD End stage renal disease; Dependence on renal dialysis 06/24/2025 Treatment [facility] [address] [phone] Jordan Elaine MD End stage renal disease; Dependence on renal dialysis 06/17/2025 Treatment [facility] [address] [phone] Jordan Elaine MD End stage renal disease; Dependence on renal dialysis 06/10/2025 Treatment [facility] [address] [phone] Jordan Elaine MD End stage renal disease; Dependence on renal dialysis 06/03/2025 Treatment [facility] [address] [phone] Jordan Elaine MD End stage renal disease; Dependence on renal dialysis 06/03/2025 Orders Only [facility] [address] [place] [address] Annel Maurice, NESS 06/03/2025 Orders Only [facility] [address] [place] [address] Annel Maurice, NESS 05/27/2025 Treatment [facility] [address] [phone] Jordan Elaine MD End stage renal disease; Dependence on renal dialysis 05/20/2025 Orders Only [facility] [address] [place] [address] Annel Maurice, RN 05/20/2025 Treatment [facility] [address] [phone] Jordan Elaine MD End stage renal disease; [...] Priority Date/Time Associated Diagnosis Comments HEMOGLOBIN Routine 08/06/2025 3:00 AM EST COLLECTION DATE (HC) Routine 08/06/2025 3:00 AM EST LIH (HC) Routine 07/31/2025 3:00 AM EST POTASSIUM Routine 07/31/2025 3:00 AM EST PHOSPHATE ( PHOSPHORUS) Routine 07/31/2025 3:00 AM EST HEMOGLOBIN AND HEMATOCRIT, BLOOD Routine 07/31/2025 3:00 AM EST LIH (HC) Routine 07/24/2025 3:00 AM EST POTASSIUM Routine 07/24/2025 3:00 AM EST HEMOGLOBIN Routine 07/24/2025 3:00 AM EST AST Routine 07/17/2025 3:00 AM EST TRANSFERRIN SATURATION Routine 3:00 AM EST ELECTROLYTE PANEL Routine 07/17/2025 3:0 0 AM EST CREATININE, SERUM Routine 07/17/2025 3:0 0 AM EST BUN/CREATININE RATIO Routine 07/17/2025 3:00 AM EST ALKALINE PHOSPHATASE Routine 07/17/2025 3:00 AM EST LACTATE DEHYDROGENASE Routine 07/17/2025 3:00 AM EST GLUCOSE, RANDOM Routine 07/17/2025 3:00 AM EST CALCIUM PHOSPHORUS PRODUCT, ADJUSTED (HC) Routine 07/17/2025 3:00 AM EST MAGNESIUM Routine 07/17/2025 3:00 AM EST BILIRUBIN, TOTAL Routine 07/17/2025 3:00 AM EST PTH, INTACT Routine 07/17/2025 3:00 AM EST ALT Routine 07/17/2025 3:00 AM EST FERRITIN Routine 07/17/2025 3:00 AM EST LIH (HC) Routine 07/17/2025 3:00 AM EST PROTEIN, TOTAL, SERUM Routine 07/17/2025 3:00 AM EST CBC AND DIFFERENTIAL Routine 07/17/2025 3:00 AM EST KT/V NATURAL LOG, URR (HC) Routine 07/17/2025 3:00 AM EST HEMOGLOBIN Routine 07/09/2025 3:00 AM EST COLLECTION DATE (HC) Routine 07/09/2025 3:00 AM EST HEMOGLOBIN AND HEMATOCRIT, BLOOD Routine 07/03/2025 3:00 AM EST FERRITIN Routine 06/19/2025 3:00 AM EST PTH, [...] URR (HC) Routine 05/15/2025 3:00 AM EDT from Last 3 Months Results * Collection Date (08/06/2025 3:00 AM EST) Only the most recent of2 resultswithin the time period is included. Collection Date See Comment [facility] Comment: Patient sample received may exceed specimen stability, based on the collection date electronically provided. When reviewing patient results, verify collection information and consider specimen stability before acting on any critical or panic results. 08/06/2025 3:00 AM EST us Jordan Elaine MD LAB [id number] SOLICITED RESULTS Final Result Performing Organization Address [facility] Co de Phone Number [facility] [address] [place] [address] * (ABNORMAL) Hemoglobin (08/06/2025 3:00 AM EST) Only the most recent of4 resultswithin the time period is included. Hgb 10.2(L) 13.7 - 17.5 g/dL [facility] Hemoglobin x 3 30.6(L) 41.1 - 52.5 g/dL [facility] 08/06/2025 3:00 AM EST 08/12/2025 12:58 PM EST us Jordan Elaine MD LAB BLOOD ORDERABLES Final Re sult Performing Organization Address [facility] Co de Phone Number [facility] [address] [place] [address] * LIH (07/31/2025 3:00 AM EST) Only the most recent of6 resultswithin the time period is included. Lipemia Normal Normal [facility] Icterus Normal Normal [facility] Hemolysis Normal Normal [facility] 07/31/2025 3:00 AM EST 08/01/2025 1:33 PM EST us Jordan Elaine MD LAB [id number] SOLICITED RESULTS Final Result Performing Organization Address [facility] Co de Phone Number [facility] [address] [place] [address] * (ABNORMAL) Hemoglobin and hematocrit (07/31/2025 3:00 AM EST) Only the most recent of3 resultswithin the time period is included. Hgb 10.8(L) 13.7 - 17.5 g/dL [facility] Hematocrit 32.7(L) 40.1 - 51.0 % [facility] Hemoglobin x 3 32.4(L) 41.1 - 52.5 g/dL [facility] 07/31/2025 3:00 AM EST 08/01/2025 1:26 PM EST us Jordan Elaine MD LAB BLOOD ORDERABLES Final Re sult Performing Organization Address [facility] Co de Phone Number [facility] [address] [place] [address] * Potassium (07/31/2025 3:00 AM EST) Only the most recent of2 resultswithin the time period is included. Potassium 4.3 3.4 - 5.0 mEq/L [facility] 07/31/2025 3:00 AM EST 08/01/2025 1:33 PM EST us Jordan Elaine MD LAB BLOOD ORDERABLES Final Re sult Performing Organization Address [facility] de Phone Number [facility] [address] [place] [address] * (ABNORMAL) Phosphorus (07/31/2025 3:00 AM EST) Phosphorus, Serum 5.8(H) 2.5 - 5.0 mg/dL [facility] 07/31/2025 3:00 AM EST 08/01/2025 1:33 PM EST us Jordan Elaine MD LAB BLOOD ORDERABLES Final Re sult Performing Organization Address [facility] de Phone Number [facility] [address] [place] [address] * (ABNORMAL) Kt/V Natural Log, URR (07/17/2025 3:00 AM EST) Only the most recent of4 resultswithin the time period is included. Treatment Time 243 min [facility] Pre-Weight, lb 99.9 kg [facility] Post-Weight, lb 95.4 kg [facility] Ultrafiltration Rate 12 <=13 mL/kg/hr [facility] Comment: Recommend achieving Ultrafiltration Rate (UFR) <=10 mL/kg/hr References: Kai AMEZQUITA et al. Kidney Int. 2010; 79(2):250-257 BUN 46(H) 7 - 25 mg/dL [facility] BUN Post Dialysis 14 7 - 25 mg/dL [facility] UREA REDUCTION RATIO (%) 70 >=65 % [facility] Kt/V Natural Log 1.44 >=1.2 [facility] 07/17/2025 3:00 AM EST 07/18/2025 3:13 PM EST Jordan Elaine MD LAB [id number] SOLICITED RESULTS Final Result Performing Organization Address [facility] de Phone Number [facility] [address] [place] [address] * (ABNORMAL) Calcium Phosphorus Product, Adjusted (07/17/2025 3:00 AM EST) Only the most recent of3 resultswithin the time period is included. Albumin 4.2 3.6 - 5.4 g/dL [facility] Calcium 9.0 8.6 - 10.3 mg/dL [facility] Phosphorus, Serum 7.0(H) 2.5 - 5.0 mg/dL [facility] Ca*PO4 63.0(A) <55.0 mg2/dL2 [facility] Calcium, Adjusted Total 9.0 8.6 - 10.3 mg/dL [facility] CA*PO4 CORRCTD 63.0(A) <55.0 mg2/dL2 [facility] 07/17/2025 3:00 AM EST 07/18/2025 3:13 PM EST Jordan Elaine MD LAB [id number] SOLICITED RESULTS Final Result Performing Organization Address [facility] Co de Phone Number [facility] [address] [place] [address] * BUN/CREATININE RATIO (07/17/2025 3:00 AM EST) Only the most recent of3 resultswithin the time period is included. [facility] BUN/Creatinine Ratio 3.3 <=23.0 [facility] 07/17/2025 3:00 AM EST 07/18/2025 3:13 PM EST Jordan Elaine MD LAB [id number] SOLICITED RESULTS Final Result Performing Organization Address [facility] Co de Phone Number [facility] [address] [place] [address] * (ABNORMAL) TSAT (07/17/2025 3:00 AM EST) Only the most recent of3 resultswithin the time period is included. [facility] Iron 136 65 - 175 ug/dL [facility] Transferrin 110(L) 215 - 365 mg/dL [facility] TIBC 154(L) 211 - 406 ug/dL [facility] Iron Saturation (TSat) 88(H) 22 - 52 % [facility] 07/17/2025 3:00 AM EST 07/18/2025 3:13 PM EST Jordan Elaine MD LAB BLOOD ORDERABLES Final Re sult Performing Organization Address [facility] Co de Phone Number [facility] [address] [place] [address] * (ABNORMAL) CBC and Differential (07/17/2025 3:00 AM EST) Only the most recent of3 resultswithin the time period is included. [facility] DIFFERENTIAL MANUAL, 2 Not Indicated [facility] White Blood Cells 6.0 4.2 - 9.1 K/uL [facility] RBC 3.64(L) 4.63 - 6.08 M/uL [facility] Hgb 11.0(L) 13.7 - 17.5 g/dL [facility] Hemoglobin x 3 33.0(L) 41.1 - 52.5 g/dL [facility] Hematocrit 33.4(L) 40.1 - 51.0 % [facility] MCV 91.8 79.0 - 92.2 fL [facility] MCH 30.2 25.7 - 32.2 pg [facility] MCHC 32.9 32.3 - 36.5 g/dL [facility] RDW 14.4 11.6 - 14.4 % [facility] Platelets 256 163 - 337 K/uL [facility] MPV 10.6 9.1 - 13.0 fL [facility] Neutrophils Relative 53.1 34.0 - 67.9 % [facility] Lymphocytes Relative 29.3 21.8 - 53.1 % [facility] Monocytes 8.3 5.3 - 12.2 % [facility] Eosinophils Relative 7.0 0.8 - 7.0 % [facility] Basophils Relative 1.3(H) 0.2 - 1.2 % [facility] Immature Granulocytes 1.0 0.0 - 1.0 % [facility] 07/17/2025 3:00 AM EST 07/18/2025 3:22 PM EST Jordan Elaine MD LAB BLOOD ORDERABLES Final Re sult Performing Organization Address [facility]/ZIP Co de Phone Number [facility] [address] [place] [address] * (ABNORMAL) ALT (07/17/2025 3:00 AM EST) Only the most recent of3 resultswithin the time period is included. ALT (SGPT) 9(L) 10 - 49 U/L [facility] 07/17/2025 3:00 AM EST 07/18/2025 3:13 PM EST Jordan Elaine MD LAB BLOOD ORDERABLES Final Re sult Performing Organization Address [facility] Co de Phone Number [facility] [address] [place] [address] * AST (07/17/2025 3:00 AM EST) Only the most recent of3 resultswithin the time period is included. AST (SGOT) 11 <34 U/L [facility] 07/17/2025 3:00 AM EST 07/18/2025 3:13 PM EST us Jordan Elaine MD LAB BLOOD ORDERABLES Final Re sult Performing Organization Address [facility] de Phone Number [facility] [address] [place] [address] * Protein, total (07/17/2025 3:00 AM EST) Only the most recent of3 resultswithin the time period is included. Total Protein 6.8 6.4 - 8.9 g/dL [facility] 07/17/2025 3:00 AM EST 07/18/2025 3:13 PM EST us Jordan Elaine MD LAB BLOOD ORDERABLES Final Re sult Performing Organization Address [facility] de Phone Number [facility] [address] [place] [address] * (ABNORMAL) Alkaline phosphatase (07/17/2025 3:00 AM EST) Only the most recent of3 resultswithin the time period is included. Alkaline Phosphatase 160(H) 46 - 116 U/L [facility] 07/17/2025 3:00 AM EST 07/18/2025 3:13 PM EST Jordan Elaine MD LAB BLOOD ORDERABLES Final Re sult Performing Organization Address [facility] de Phone Number [facility] [address] [place] [address] * PTH, Intact (07/17/2025 3:00 AM EST) Only the most recent of3 resultswithin the time period is included. PTH, Intact 434 160 - 721 pg/mL [facility] Comment: Suggested (KDIGO) ESRD maintenance range is two to nine times the upper normal limit (80.1 pg/mL) for the laboratory. 07/17/2025 3:00 AM EST 07/18/2025 3:13 PM EST Jordan Elaine MD LAB BLOOD ORDERABLES Final Re sult Performing Organization Address [facility] de Phone Number [facility] [address] [place] [address] * Magnesium (07/17/2025 3:00 AM EST) Only the most recent of3 resultswithin the time period is included. Magnesium 2.2 1.9 - 2.7 mg/dL [facility] 07/17/2025 3:00 AM EST 07/18/2025 3:13 PM EST Jordan Elaine MD LAB BLOOD ORDERABLES Final Re sult Performing Organization Address [facility] de Phone Number [facility] [address] [place] [address] * Lactate dehydrogenase (07/17/2025 3:00 AM EST) Only the most recent of3 resultswithin the time period is included. LDH 188 120 - 246 U/L [facility] 07/17/2025 3:00 AM EST 07/18/2025 3:13 PM EST Jordan Elaine MD LAB BLOOD ORDERABLES Final Re sult Performing Organization Address [facility] de Phone Number [facility] [address] [place] [address] * (ABNORMAL) Glucose, random (07/17/2025 3:00 AM EST) Only the most recent of3 resultswithin the time period is included. Glucose 448(H) 70 - 99 mg/dL [facility] Comment: ADA guidelines outline the following fasting glucose ranges: Normal: <100 Prediabetes: 100-125 Diabetes: >125 07/17/2025 3:00 AM EST 07/18/2025 3:13 PM EST Jordan Elaine MD LAB BLOOD ORDERABLES Final Re sult Performing Organization Address [facility] Co de Phone Number [facility] [address] [place] [address] * (ABNORMAL) Ferritin (07/17/2025 3:00 AM EST) Only the most recent of3 resultswithin the time period is included. Ferritin 1,126(H) 22 - 322 ng/mL [facility] 07/17/2025 3:00 AM EST 07/18/2025 3:13 PM EST Jordan Elaine MD LAB BLOOD ORDERABLES Final Re sult Performing Organization Address [facility] Co de Phone Number [facility] [address] [place] [address] * (ABNORMAL) Creatinine, serum (07/17/2025 3:00 AM EST) Only the most recent of3 resultswithin the time period is included. Creatinine 13.76(H) 0.70 - 1.30 mg/dL [facility] 07/17/2025 3:00 AM EST 07/18/2025 3:13 PM EST Jordan Elaine MD LAB BLOOD ORDERABLES Final Re sult Performing Organization Address [facility] Co de Phone Number [facility] [address] [place] [address] * (ABNORMAL) Bilirubin, total (07/17/2025 3:00 AM EST) Only the most recent of3 resultswithin the time period is included. Total Bilirubin <0.2(L) 0.3 - 1.2 mg/dL [facility] 07/17/2025 3:00 AM EST 07/18/2025 3:13 PM EST Jordan Elaine MD LAB BLOOD ORDERABLES Final Re sult Performing Organization Address [facility] Co de Phone Number [facility] [address] [place] [address] * (ABNORMAL) Electrolyte panel (07/17/2025 3:00 AM EST) Only the most recent of3 resultswithin the time period is included. Sodium 132(L) 136 - 145 mEq/L [facility] Potassium 3.9 3.4 - 5.0 mEq/L [facility] Chloride 98 98 - 107 mEq/L [facility] Bicarbonate (CO2) 20(L) 21 - 31 mEq/L [facility] Anion Gap 14 3 - 14 mEq/L [facility] 07/17/2025 3:00 AM EST 07/18/2025 3:13 PM EST Jordan Elaine MD LAB BLOOD ORDERABLES Final Re sult Performing Organization Address [facility] de Phone Number [facility] [address] [place] [address] * (ABNORMAL) Hemoglobin A1c (05/15/2025 3:00 AM EDT) Hemoglobin A1C 8.9(H) <5.7 % [facility] Comment: Methodology: Enzymatic Normal: <5.7% Prediabetes: 5.7-6.4% Diabetes: >6.4% Diabetic Glucose Control Evaluation: Therapeutic action suggested at >8.0% ADA recommends a glycemic goal of <7.0% 05/15/2025 3:00 AM EDT 05/16/2025 1:56 PM EDT Jordan Elaine MD LAB BLOOD ORDERABLES Final Re sult Performing Organization Address [facility] de Phone Number [facility] [address] [place] [address] * (ABNORMAL) Lipid panel (05/15/2025 3:00 AM [...] Final Re sult [facility] [address] [place] [address] from Last 3 Months Insurance Medicaid [place] Medicare Medicaid [place] Medicare Care Teams Blurb Writer Relationship Specialty Start Date End Date Jordan Woo MD [address] [place] [address] PCP - General Internal Medicine 06/03/21
--- OUTSIDE RECORDS SUMMARY | 2025-08-14 14:31 | XMS_ITS | Clinical Summary ---
Author Organization [facility] Address [address] [place] [address] Phone Care Team Providers Care Director Of Student Financial Services Name Role Phone Jessica Meraz Primary Care Provider [phone] Allergies No known active allergies Medications polyethylene [...] kidney disease) 12/11/2020 Overview (07/04/2024): Never saw production helper, no records from PCP OF 12/11/20 Encounters Date Type Department Care Team Description 06/06/2025 9:30 AM EDT Office Visit Orthopedic Surgery - [address] [address] Elpidio Villegas, DPM Hallux rigidus of left foot (Primary [...] callosities; Type 1 diabetes mellitus with mononeuropathy ([facility] V24, [facility] V28) from Last 3 Months Medical History Medical History Date Comments Urinary tract infection DX:Urina ry tract infection Microscopic hematuria DX:Microsc opic hematuria Diabetes mellitus ([facility] V 24, [facility] V28) DX:Diabetes mellitus ([facility]); COMMENT: Type 1, followed by tar boiler at [facility] CKD (chronic kidney disease) DX: CKD (chronic kidney disease); COMMENT: Never saw production helper, no records from PCP OF 12/11/20 Social [...] AM EST Office Visit Orthopedic Surgery - [place] [address] [address] Elpidio Villegas, DPM [address] [address] Health Maintenance Due Date Last [...] Date/Time Associated Diagnosis Comments ECG ANNOTATED 05/14/2025 COMPREHENSIVE METABOLIC PANEL STAT 05/13/2025 11:30 AM EDT URINE ALBUMIN CREATININE RATIO Routine 12/11/2020 from Last 3 Months or Most Recently Relevant to Health Maintenance Results * ECG-Annotated (05/14/2025) us Provider Onbase MD ECG ORDERABLES Final Result * (ABNORMAL) Comprehensive metabolic panel (05/13/2025 11:30 AM EDT) Sodium 136 133 - 145 mmol/L LAB CHEMISTRY METHOD 05/13/2025 12:57 PM [facility] Potassium 4.4 3.5 - 5.5 mmol/L LAB CHEMISTRY METHOD 05/13/2025 12:57 PM [facility] Comment:Hemolysis present Chloride 98 96 - 110 mmol/L LAB CHEMISTRY METHOD 05/13/2025 12:57 PM [facility] CO2 25 21 - 32 mmol/L LAB CHEMISTRY METHOD 05/13/2025 12:57 PM [facility] Anion Gap 13(H) 3 - 11 LAB CHEMISTRY METHOD 05/13/2025 12:57 PM [facility] Glucose 232(H) 70 - 100 mg/dL LAB CHEMISTRY METHOD 05/13/2025 12:57 PM [facility] BUN 19 5 - 25 mg/dL LAB CHEMISTRY METHOD 05/13/2025 12:57 PM [facility] Creatinine 7.93(H) 0.70 - 1.30 mg/dL LAB CHEMISTRY METHOD 05/13/2025 12:57 PM [facility] eGFR 8(L) >=60 mL/min/1. 73m2 LAB CHEMISTRY METHOD 05/13/2025 12:57 PM [facility] Comment:Calculation based on the Chronic Kidney Disease Epidemiology Collaboration (CKD-EPI) equation refit without adjustment for race. BUN/Creatinine Ratio 2.4 LAB CHEMISTRY METHOD 05/13/2025 12:57 PM [facility] Calcium 9.6 8.5 - 10.5 mg/dL LAB CHEMISTRY METHOD 05/13/2025 12:57 PM [facility] AST (SGOT) 18 10 - 42 unit/L LAB CHEMISTRY METHOD 05/13/2025 12:57 PM [facility] Comment:Hemolysis present ALT (SGPT) 21 10 - 60 unit/L LAB CHEMISTRY METHOD 05/13/2025 12:57 PM [facility] Alkaline Phosphatase 169(H) 42 - 121 unit/L LAB CHEMISTRY METHOD 05/13/2025 12:57 PM [facility] Total Protein 7.6 6.0 - 8.0 g/dL LAB CHEMISTRY METHOD 05/13/2025 12:57 PM [facility] Albumin 4.1 3.2 - 5.0 g/dL LAB CHEMISTRY METHOD 05/13/2025 12:57 PM [facility] Total Bilirubin 0.6 0.0 - 1.4 mg/dL LAB CHEMISTRY METHOD 05/13/2025 12:57 PM [facility] Blood Venous blood specimen / Unknown Venipuncture / Unknown 05/13/2025 11:30 AM EDT 05/13/2025 12:10 PM EDT Mary Capellan MD LAB BLOOD ORDERABLES Final Res ult [facility] [address] [place] [address], * Urine Albumin Creatinine Ratio (12/11/2020) Urine Albumin Creatinine Ratio Abstracted us Historical Provider HEALTH MAINTENANCE Final Result from Last 3 Months or Most Recently Relevant to Health Maintenance Insurance [place] Advance Directives Documents on File Type Date Recorded 

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
--- OUTSIDE RECORDS SUMMARY | 2025-08-14 14:31 | XMS_ITS | Encounter Summary ---
Author Organization [facility] Address [address] [facility] [address] [place] [address] Phone Care Team Providers Care Tester Operator Helper Name Role Phone Jordan Woo MD Primary Care Provider [phone] Reason for Visit * Reason Comments Med Refill Encounter Details Date Type Department Care Team (Late st Contact Info) Description 10/22/2024 Refill [facility] [address] [place] [address] Jordan Elaine MD [address] [facility] [address] [place] [phone] Social History Tobacco Use Types Packs/Day Years [...] sult Performing Organization Address [facility] de Phone Number [facility] [address] [place] [address] * (ABNORMAL) TSAT (11/14/2024 3:00 AM EDT) Iron 78 65 - 175 ug/dL [facility] Transferrin 129(L) 215 - 365 mg/dL [facility] TIBC 181(L) 211 - 406 ug/dL [facility] Iron Saturation (TSat) 43 22 - 52 % [facility] 11/14/2024 3:00 AM EDT 11/16/2024 4:40 PM EDT Jordan Elaine MD LAB BLOOD ORDERABLES Final Re sult Performing Organization Address [facility] de Phone Number [facility] [address] [place] [address] * Protein, total (11/14/2024 3:00 AM EDT) Total Protein 7.0 6.4 - 8.9 g/dL [facility] 11/14/2024 3:00 AM EDT 11/16/2024 4:40 PM EDT Jordan Elaine MD LAB BLOOD ORDERABLES Final Re sult Performing Organization Address [facility] de Phone Number [facility] [address] [place] [address] * Electrolyte panel (11/14/2024 3:00 AM EDT) [...] sult Performing Organization Address [facility] de Phone Number [facility] [address] [place] [address] * Magnesium (11/14/2024 3:00 AM EDT) Magnesium 1.9 1.9 - 2.7 mg/dL [facility] 11/14/2024 3:00 AM EDT 11/16/2024 4:40 PM EDT Jordan Elaine MD LAB BLOOD ORDERABLES Final Re sult Performing Organization Address [facility] de Phone Number [facility] [address] [place] [address] * (ABNORMAL) Lipid panel (11/14/2024 3:00 AM [...] ORDERABLES Final Re sult Performing Organization Address [facility] de Phone Number [facility] [address] [place] [address] * LIH (11/14/2024 3:00 AM EDT) Lipemia Normal Normal [facility] Icterus Normal Normal [facility] Hemolysis Normal Normal [facility] 11/14/2024 3:00 AM EDT 11/16/2024 4:40 PM EDT Jordan Elaine MD LAB [id number] SOLICITED RESULTS Final Result Performing Organization Address [facility] de Phone Number [facility] [address] [place] [address] * Lactate dehydrogenase (11/14/2024 3:00 AM EDT) LDH 239 120 - 246 U/L [facility] 11/14/2024 3:00 AM EDT 11/16/2024 4:40 PM EDT Jordan Elaine MD LAB BLOOD ORDERABLES Final Re sult Performing Organization Address [facility] de Phone Number [facility] [address] [place] [address] * Glucose, random (11/14/2024 3:00 AM EDT) Glucose 108 74 - 109 mg/dL [facility] 11/14/2024 3:00 AM EDT 11/16/2024 4:40 PM EDT Jordan Elaine MD LAB BLOOD ORDERABLES Final Re sult Performing Organization Address [facility] Co de Phone Number [facility] [address] [place] [address] * (ABNORMAL) Creatinine, serum (11/14/2024 3:00 AM EDT) Creatinine 12.46(H) 0.70 - 1.30 mg/dL [facility] 11/14/2024 3:00 AM EDT 11/16/2024 4:40 PM EDT Jordan Elaine MD LAB BLOOD ORDERABLES Final Re sult Performing Organization Address [facility] de Phone Number [facility] [address] [place] [address] * (ABNORMAL) Bilirubin, total (11/14/2024 3:00 AM EDT) Total Bilirubin 0.2(L) 0.3 - 1.2 mg/dL [facility] 11/14/2024 3:00 AM EDT 11/16/2024 4:40 PM EDT Jordan Elaine MD LAB BLOOD ORDERABLES Final Re sult Performing Organization Address [facility] de Phone Number [facility] [address] [place] [address] * AST (11/14/2024 3:00 AM EDT) AST (SGOT) 17 <34 U/L [facility] 11/14/2024 3:00 AM EDT 11/16/2024 4:40 PM EDT Jordan Elaine MD LAB BLOOD ORDERABLES Final Re sult Performing Organization Address [facility] de Phone Number [facility] [address] [place] [address] * (ABNORMAL) Alkaline phosphatase (11/14/2024 3:00 AM EDT) Alkaline Phosphatase 129(H) 46 - 116 U/L [facility] 11/14/2024 3:00 AM EDT 11/16/2024 4:40 PM EDT Jordan Elaine MD LAB BLOOD ORDERABLES Final Re sult Performing Organization Address [facility] Co de Phone Number [facility] [address] [place] [address] * Calcium Phosphorus Product, Adjusted (11/14/2024 3:00 AM EDT) Albumin 4.4 3.6 - 5.4 g/dL [facility] Calcium 9.5 8.6 - 10.3 mg/dL [facility] Phosphorus, Serum 4.4 2.5 - 5.0 mg/dL [facility] Ca*PO4 41.8 <55.0 mg2/dL2 [facility] Calcium, Adjusted Total 9.5 8.6 - 10.3 mg/dL [facility] CA*PO4 CORRCTD 41.8 <55.0 mg2/dL2 [facility] 11/14/2024 3:00 AM EDT 11/16/2024 4:40 PM EDT Jordan Elaine MD LAB [id number] SOLICITED RESULTS Final Result Performing Organization Address [facility] de Phone Number [facility] [address] [place] [address] * ALT (11/14/2024 3:00 AM EDT) ALT (SGPT) 13 10 - 49 U/L [facility] 11/14/2024 3:00 AM EDT 11/16/2024 4:40 PM EDT Jordan Elaine MD LAB BLOOD ORDERABLES Final Re sult Performing Organization Address [facility] Co de Phone Number [facility] [address] [place] [address] * (ABNORMAL) Ferritin (11/14/2024 3:00 AM EDT) Ferritin 928(H) 22 - 322 ng/mL [facility] 11/14/2024 3:00 AM EDT 11/16/2024 4:40 PM EDT us Jordan Elaine MD LAB BLOOD ORDERABLES Final Re sult Performing Organization Address [facility] Co de Phone Number [facility] [address] [place] [address] * (ABNORMAL) PTH, Intact (11/14/2024 3:00 AM EDT) PTH, Intact 947(H) 160 - 721 pg/mL [facility] Comment: Suggested (KDIGO) ESRD maintenance range is two to nine times the upper normal limit (80.1 pg/mL) for the laboratory. 11/14/2024 3:00 AM EDT 11/16/2024 4:40 PM EDT us Jordan Elaine MD LAB BLOOD ORDERABLES Final Re sult Performing Organization Address [facility] de Phone Number [facility] [address] [place] [address] * (ABNORMAL) Kt/V Natural Log, URR (11/14/2024 [...] PM EDT us Jordan Elaine MD LAB [id number] SOLICITED RESULTS Final Result [facility] [address] [place] [address] * (ABNORMAL) CBC and Differential (11/14/2024 3:00 AM EDT) Pathologist [facility] DIFFERENTIAL MANUAL, 2 Not Indicated [facility] [...] Final Re sult [facility] [address] [place] [address] * (ABNORMAL) Hemoglobin (11/09/2024 3:00 AM EDT) Pathologist [facility] Hgb 9.7(L) 13.7 - 17.5 g/dL [facility] Hemoglobin x 3 29.1(L) 41.1 - 52.5 g/dL [facility] 11/09/2024 3:00 AM EDT 11/10/2024 1:00 PM EDT Jordan Elaine MD LAB BLOOD ORDERABLES Final Re sult Performing Organization Address [facility] Co de Phone Number [facility] [address] [place] [address] * (ABNORMAL) Hemoglobin and hematocrit (10/31/2024 3:00 AM EDT) Hgb 9.6(L) 13.7 - 17.5 g/dL [facility] Hematocrit 29.3(L) 40.1 - 51.0 % [facility] Hemoglobin x 3 28.8(L) 41.1 - 52.5 g/dL [facility] 10/31/2024 3:00 AM EDT 11/01/2024 1:22 PM EDT Jordan Elaine MD LAB BLOOD ORDERABLES Final Re sult Performing Organization Address [facility] de Phone Number [facility] [address] [place] [address] documented in this encounter Visit Diagnoses Not on filedocumented in this encounter Care Teams Tester Operator Helper Relationship Specialty Start Date End Date Jordan Woo MD [address] [place] [address] PCP - General Internal Medicine 06/03/21 documented as of this encounter
== END 2025-08-14 13:46 | disposition home or self-care (01) ==
PROVIDERS: Visit Provider Physician Assistant
DX: S83.282A Other tear of lateral meniscus, current injury, left knee, initial encounter (principal)
CPT/HCPCS: 99213; G2211